=== PATIENT | male | born 1975 | race Caucasian/White ===

== ENCOUNTER → 2019-09-18 | Outpatient (CLI) | payer OTHER ==
--- NOTE | 2019-09-18 11:00 | ECHOF ---
Referral Reason:R01.1 murmur MEASUREMENTS -------- HEIGHT: 157.5 cm WEIGHT: 79.4 kg BP: IVSd: 1.1 cm (0.6 - 1.1) LVIDd: 4.5 cm (3.9 - 5.3) LVPWd: 1.4 cm (0.6 - 1.1) IVSs: 1.5 cm LVIDs: 3.0 cm LVPWs: 2.2 cm LAESV Index (A-L): 33.78 ml/m Ao Diam: 2.6 cm (2.0 - 3.7) AV Cusp: 1.5 cm (1.5 - 2.6) LA Diam: 3.4 cm (2.7 - 3.8) MV EXCURSION: 16.312 mm (> 18.000) MV EF SLOPE: 60 mm/s (70 - 150) EPSS: 0.9 cm MV E Brad: 0.70 m/s MV DecT: 105 ms MV A Brad: 0.49 m/s MV E/A Ratio: 1.44 AV maxP.31 mmHg AV meanP.02 mmHg AR PHT: 532 ms RAP: 5.00 mmHg RVSP: 35.15 mmHg FINDINGS -------- Sinus rhythm. This was a technically adequate study. The left ventricular size is normal. There is mild concentric left ventricular hypertrophy. Overa ll left ventricular systolic function is normal with, an EF between 55 - 60 %. The diastolic fillin g pattern is normal for the age of the patient 12.00. The right ventricle is normal in size. LA is midly dilated 29-33ml/m2. The right atrium was not well visualized. Interatrial and interventricular septum intact. There is [id number] aortic regurgitation. Moderate aortic stenosis with peak/mean pressure gr adient of 54.31mmHg / 38.02mmHg, the aortic valve area by continuity equation is {SEAMUS}. Peak/mean g radient across the Aortic Valve is 54.31mmHg / 38.02mmHg. Can not exclude possible calcifaction vs Bicuspid Valve. Advised CHICO Mild mitral regurgitation is present. Mild tricuspid regurgitation present. There is mild pulmonary hypertension. The right ventricular systolic pressure, as measured by Doppler, is 35.15mmHg. Trace/mild (physiologic) pulmonic regurgitation. The ascending aorta is dilated measuring up to {4.6 cm}. IVC Not well visulized. There is no pericardial effusion. CONCLUSIONS -------- 1. Sinus rhythm. 2. This was a technically adequate study. 3. The left ventricular size is normal. 4. There is mild concentric left ventricular hypertrophy. 5. Overall left ventricular systolic function is normal with, an EF between 55 - 60 %. 6. The diastolic filling pattern is normal for the age of the patient 12.00 7. The right ventricle is normal in size. 8. LA is midly dilated 29-33ml/m2. 9. The right atrium was not well visualized. 10. Interatrial and interventricular septum intact. 11. There is jlqj-lb-kfedpgqk aortic regurgitation. 12. Peak/mean gradient across the Aortic Valve is 54.31mmHg / 38.02mmHg. 13. Can not exclude possible calcifaction vs vegetation/tumor of aov. 14. Mild mitral regurgitation is present. 15. Mild tricuspid regurgitation present. 16. There is mild pulmonary hypertension. 17. The right ventricular systolic pressure, as measured by Doppler, is 35.15mmHg. 18. Trace/mild (physiologic) pulmonic regurgitation. 19. The ascending aorta is dilated measuring up to {4.6cm}. 20. IVC Not well visulized. 21. There is no pericardial effusion. PLATE SLITTER AND INSPECTOR: Ariadne Mckeon [facility]
== END | disposition home or self-care (01) ==
LOC: RADECHMAIN 08:10
PROVIDERS: ATTEND Family Medicine
DX: I08.3 Combined rheumatic disorders of mitral, aortic and tricuspid valves (principal); I27.20 Pulmonary hypertension, unspecified
CPT/HCPCS: 93306

== ENCOUNTER → 2020-09-01 | Outpatient (CLI) | payer OTHER ==
[2020-09-01 10:35] LABS: HCT 43.5 % (39.0-53.0); HGB 14.1 gm/dL (13.0-17.5); Hypochromasia Slight; MCH 30.3 pg (25.0-35.0); MCHC 32.5 g/dL (31.0-37.0); MCV 93.1 fL (80.0-100.0); Mean Platelet Volume 8.5; Platelet Count 126 k/uL (150-450); RBC 4.67 m/uL (4.30-5.90); RDW 14.5 % (11.5-15.5); WBC 8.5 k/uL (3.8-10.6)
[2020-09-01 11:00] LABS: African American GFR (CKD) >90 (>60 ml/min/1.73 sqM); Anion Gap 2 mmol/L; Blood Urea Nitrogen 20 mg/dL (9-20); Carbon Dioxide 31 mmol/L (22-30); Chloride 108 mmol/L (98-107); Non-African American GFR(CKD) >90 (>60 ml/min/1.73 sqM); Potassium 4.7 mmol/L (3.5-5.1); Sodium 141 mmol/L (137-145)
== END | disposition home or self-care (01) ==
LOC: LABWHC1 09:34
PROVIDERS: ATTEND Internal Medicine Interventional Cardiology
DX: Z01.818 Encounter for other preprocedural examination (principal); Q23.1 Congenital insufficiency of aortic valve
CPT/HCPCS: 36415; 80051; 82565; 84520; 85027

== ENCOUNTER → 2020-09-03 | Day surgery (SDC) | payer OTHER ==
[2020-08-28 15:59] VITALS: BMI 31.7
[~2020-09-03] MED LIST: ALPRAZolam 0.25 MG TAB PO PRN; ALPRAZolam 0.5 MG TAB PO PRN; ASPIRIN 325 MG TAB PO STA; ASPIRIN 81 MG ONE; BENZOCAINE SPRAY 1 CAN TOPICAL ONE; HEPARIN SODIUM,PORCINE 10,000 UNIT in SODIUM CHLORIDE 0.9% 1,000 ML IRRIGATION PRN; HEPARIN SODIUM,PORCINE 2,500 UNIT in SODIUM CHLORIDE 0.9% 250 ML IRRIGATION PRN; IOPAMIDOL-370 100ML BTL INJ ONE; LIDOCAINE 1% INJ 10MG/ML (20 ML MDV) ONE; MIDAZOLAM 2 MG/2 ML VIAL IV ONE; NITROGLYCERIN SL TABS 0.4 MG TAB SUBLINGUAL PRN; SODIUM CHLORIDE 0.9% 1,000 ML IV SCH; SODIUM CHLORIDE 0.9% 1,000 ML in EMPTY BAG 1 BAG IV ONE; fentaNYL (PF) 50 MCG/ML 2 ML AMP IV ONE; fentaNYL (PF) 50 MCG/ML 2 ML AMP ONE
[2020-09-03 08:08] VITALS: TEMP 97.7
[2020-09-03 08:42] VITALS: RESP 16
--- NOTE | 2020-09-03 08:52 | P.PCN ---
Date of Procedure: 09/03/20 Preoperative Diagnosis: Bicuspid aortic valve, aortic stenosis and regurgitation Postoperative Diagnosis: Moderate to severe aortic regurgitation and moderate to severe aortic stenosis. Very calcified aortic valve, possibly bicuspid Procedure(s) Performed: CHICO examination Description of Procedure: INDICATION: Assessment of the aortic valve disease CONSENT: . Verbal informed consent was obtained from the patient PROCEDURE: . Patient was brought to the lab in a fasting state. He was prepped and draped in the usual fashion. The throat was sprayed with Hurricaine. Patient was given 2 mg of Versed and 50 g of fentanyl for sedation. A lubricated Omni probe was introduced into the oropharynx and was advanced into the esophagus. Color, pulsed, continuous-wave Doppler studies were performed. Saline contrast bubble injection was performed. Patient tolerated the procedure well. No immediate complications FINDINGS: . The aortic valve is heavily calcified with an eccentric opening. It is not clear to be in the cuspid and bicuspid. The valve area by planimetry is about 1 cm. There is a eccentric moderate to severe aortic regurgitation. A peak gradient of 70 with a mean of 45 and the pain across the aortic valve which is consistent with severe aortic stenosis. This may be high because of concomitant aortic regurgitation. The mitral valve appears within normal. The tricuspid valve appears normal. The interatrial septum is intact. Left atrium appeared to be enlarged. The left ventricle size appeared to be mildly enlarged with mild generalized hypokinesia with an ejection fraction about 45%. The left atrial appendage is free of any clot. Saline contrast bubble injection did not reveal any urgency of PFO. No spontaneous shunt noted across the septum. The descending aorta appeared to be free of any significant plaque IMPRESSION: #1. Moderate to severe stenosis and moderate to severe aortic regurgitation. Heavily calcified aortic valve which could be bicuspid #2. Normal mitral and tricuspid valve function #3. No PFO or #4. No clot in the left atrial appendage. #5. Left ventricle is Mildly dilated with mild generalized hypokinesia with ejection fraction of 45%.6. The left atrium appears mildly enlarged PLAN: Patient is going to have a right and left heart catheterization. Most probably having some mitral valve replacement.
[2020-09-03 11:20] LABS: O2 Sat Blood Gas 61.1 %
[2020-09-03 11:20] LABS: O2 Sat Blood Gas 56.9 %
[2020-09-03 11:21] LABS: O2 Sat Blood Gas 58.9 %
[2020-09-03 11:21] LABS: O2 Sat Blood Gas 58.5 %
[2020-09-03 11:22] LABS: O2 Sat Blood Gas 92.7 %
--- NOTE | 2020-09-03 13:40 | CC ---
CARDIAC CATHETERIZATION REPORT DATE OF SERVICE: 09/03/2020. PROCEDURE: Right heart catheterization and coronary angiography. PERFORMED BY: Dr. Nallely Monterroso. Moderate conscious sedation time was 31 minutes. Patient was administered Versed. Oxygen saturation, hemodynamics and EKG were monitored closely. PROCEDURE NOTE: Under local anesthesia and strict aseptic precautions, a 6-Singaporean introducer was placed in the right femoral artery and an 8-Singaporean introducer in the right femoral vein. Using a balloon tipped catheter, I performed right heart catheterization, checked the pressures and obtained saturations. The catheter was then taken out. I had difficulty getting the wedge pressure because of tortuosity. Subsequently, using standard Teofilo catheters I performed coronary angiography, but did not cross the aortic valve. The sheath was taken out and Angio-Seal device used to secure hemostasis. The venous sheath was taken out and manual compression used. CARDIAC CATHETERIZATION FINDINGS: The right atrial pressure was 5 mmHg, right ventricular pressure was about 48/5, pulmonary arterial pressure was 48/20 with a mean of 32. A wedge pressure was not obtained. Pulmonary arterial saturation was about 60% and femoral arterial saturation was 93%. There was no oxygen step-up. The Annette cardiac output was 4.8 L. CORONARY ANGIOGRAPHY FINDINGS: RIGHT CORONARY ARTERY: This is a dominant vessel has no significant disease. Distally gives off a large PDA and supplies a sizable amount of myocardium. Minor irregularities in the super dominant RCA. No significant disease. LEFT MAIN CORONARY ARTERY: This is a short patent vessel free of significant disease that immediately bifurcates into LAD and circumflex. LEFT ANTERIOR DESCENDING CORONARY ARTERY: Good caliber vessel, gives off septal and diagonal branches runs all the way to the apex. No significant disease. LEFT POSTERIOR CIRCUMFLEX CORONARY ARTERY: Technically this is a nondominant vessel supplies a limited amount of myocardium, has no significant disease. The PLV branch comes off from the distal circumflex. The high first obtuse marginal is free of significant disease. LEFT ANTERIOR DESCENDING CORONARY ARTERY: Good caliber vessel, gives off septal and diagonal branches. Minor irregularities. No significant disease. IMPRESSION: 1. This patient has no obstructive coronary artery disease. 2. She has moderate pulmonary hypertension. 3. There is no oxygen step-up. 4. The Annette cardiac output was 4.87 L. 5. By transesophageal echo, the valve is probably unicuspid are bicuspid with moderate regurgitation and moderate stenosis. RECOMMENDATION: Aortic valve replacement probably with a tissue valve. Findings discussed with the patient, and Dr. Basilio Jiménez. Will make appointment as soon as possible. MMODL / IJN: [id number] /
[2020-09-03 15:06] VITALS: BP 88/56; PULSE 70
== END ==
LOC: CATHCVL 07:36
PROVIDERS: ATTEND Internal Medicine Interventional Cardiology
DX: I35.2 Nonrheumatic aortic (valve) stenosis with insufficiency (principal); I27.20 Pulmonary hypertension, unspecified; J45.20 Mild intermittent asthma, uncomplicated; E78.00 Pure hypercholesterolemia, unspecified; I71.2 Thoracic aortic aneurysm, without rupture; R09.89 Other specified symptoms and signs involving the circulatory and respiratory systems; Z79.899 Other long term (current) drug therapy; Z79.82 Long term (current) use of aspirin
CPT/HCPCS: 93312; 93320; 93325; 93456; 85018; 82810; C1769 ×4; C1760; C1894 ×2; J2250; J3010; Q9967

== ENCOUNTER → 2020-09-30 | Outpatient (CLI) | payer OTHER ==
[2020-09-30 10:28] LABS: HCT 39.2 % (39.0-53.0); HGB 12.9 gm/dL (13.0-17.5); MCH 29.8 pg (25.0-35.0); MCHC 32.8 g/dL (31.0-37.0); MCV 90.8 fL (80.0-100.0); Platelet Count 135 k/uL (150-450); RBC 4.32 m/uL (4.30-5.90); RDW 14.6 % (11.5-15.5)
--- NOTE | 2020-09-30 10:32 | P.PN ---
Progress Note - Text Progress Note Date: 09/30/20 5 meter walk completed without difficulty: #1 3.43 sec #2 3.67 sec #3 3.23 sec Patient tolerated well. STS risk score calculated and discussed with patient
[2020-09-30 10:43] LABS: ALT 17 U/L (4-49); AST 21 U/L (17-59); African American GFR (CKD) >90 (>60 ml/min/1.73 sqM); Albumin 4.3 g/dL (3.5-5.0); Alkaline Phosphatase 36 U/L (38-126); Anion Gap 8 mmol/L; Blood Urea Nitrogen 18 mg/dL (9-20); Calcium 9.3 mg/dL (8.4-10.2); Carbon Dioxide 28 mmol/L (22-30); Chloride 104 mmol/L (98-107); Cholesterol 110 mg/dL (<200); Glucose 104 mg/dL (74-99); HDL Cholesterol 36 mg/dL (40-60); LDL Cholesterol,Calculated 44 mg/dL (0-99); Magnesium 2.1 mg/dL (1.6-2.3); Non-African American GFR(CKD) >90 (>60 ml/min/1.73 sqM); Potassium 4.4 mmol/L (3.5-5.1); Sodium 140 mmol/L (137-145); Total Bilirubin 0.8 mg/dL (0.2-1.3); Total Protein 6.8 g/dL (6.3-8.2); Triglycerides 148 mg/dL (<150)
--- NOTE | 2020-09-30 11:12 | XR ---
EXAMINATION TYPE: XR chest 2V DATE OF EXAM: 09/30/2020 COMPARISON: 02/03/2009 INDICATION: Aortic stenosis TECHNIQUE: Single frontal view of the chest is obtained. FINDINGS: The heart size is normal. The pulmonary vasculature is slightly prominent. The lungs are clear. There is spondylosis within the mid thoracic spine IMPRESSION: 1. Slight prominence of pulmonary vascular markings. 2. Suspicious focal infiltrates are not evident.
--- NOTE | 2020-09-30 11:20 | US ---
EXAMINATION TYPE: US carotid duplex BILAT DATE OF EXAM: 09/30/2020 COMPARISON: 05/07/2009 CLINICAL HISTORY: I35.0 AORTIC STENOSIS,U07.1. PreOP. EXAM MEASUREMENTS: RIGHT: Peak Systolic Velocity (PSV) cm/sec ----- Right CCA: 56.4 ----- Right ICA: 76.4 ----- Right ECA: 62.4 ICA/CCA ratio: 1.4 RIGHT: End Diastole cm/sec ----- Right CCA: 18.0 ----- Right ICA: 25.0 ----- Right ECA: 11.0 LEFT: Peak Systolic Velocity (PSV) cm/sec ----- Left CCA: 62.5 ----- Left ICA: 92.2 ----- Left ECA: 80.1 ICA/CCA ratio: 1.5 LEFT: End Diastole cm/sec ----- Left CCA: 18.0 ----- Left ICA: 27.4 ----- Left ECA: 11.5 VERTEBRALS (direction of flow): Right Vertebral: Antegrade Left Vertebral: Antegrade Rhythm: Normal No wall thickening. No elevated velocities or significant stenosis. No plaque seen. No significant interval changes evident IMPRESSION: 1. No significant flow-limiting stenosis. Criteria for Assigning % of Stenosis / Diameter reduction (Estimation based on the indirect measurements of the internal carotid artery velocities (ICA PSV). 1. Normal (no stenosis)=ICA PSV < 125 cm/s: ratio < 2.0: ICA EDV<40 cm/s. 2. Less than 50% stenosis=ICA PSV < 125 cm/s: ratio < 2.0: ICA EDV<40 cm/s. 3. 50 to 69% stenosis=ICA PSV of 125 to 230 cm/s: ration 2.0 ? 4.0: ICA EDV 40-100 cm/s. 4. Greater than 70% stenosis to near occlusion= ICA PSV > 230 cm/s: ratio > 4.0: ICA EDV > 100 cm/s. 5. Near occlusion= ICA PSV velocities may be low or undetectable: variable ratio and ICA EDV. 6. Total occlusion=unable to detect flow.
[2020-09-30 11:33] LABS: Appearance,Urine Clear (Clear); Bilirubin,Urine Negative (Negative); Blood,Urine Negative (Negative); Color,Urine Yellow; Glucose,Urine (UA) Negative (Negative); Ketones,Urine Negative (Negative); Leukocyte Esterase,Urine Negative (Negative); Nitrite,Urine Negative (Negative); Protein,Urine Negative (Negative); Specific Gravity,Urine 1.022 (1.001-1.035); Urobilinogen,Urine <2.0 mg/dL (<2.0)
[2020-09-30 12:07] LABS: Partial Thromboplastin Time 24.3 sec (22.0-30.0); Prothrombin Time 10.5 sec (9.0-12.0)
[2020-09-30 17:07] LABS: Hepatitis A Antibody IgM Non-Reactive (Non-Reactive); Hepatitis B Core IgM Non-Reactive (Non-Reactive); Hepatitis B Surface Antigen Non-Reactive (Non-Reactive); Hepatitis C IgG Antibody Non-Reactive (Non-Reactive)
[2020-09-30 17:35] LABS: Hemoglobin A1C 5.4 % (4.0-6.0)
--- NOTE | 2020-10-01 14:12 | P.VSCSTY ---
Greater Saphenous Vein Mapping This is bilateral lower extremity greater saphenous vein mapping. Date of service: 09/30/2020 Vein quality and ultrasound appearance: We see no intraluminal thrombus or wall changes. Vein size groin right : 4.8 x 5.4 groin left: 5.1 x 5.2 High thigh right: 2.8 x 2.3 high thigh left: 3.1 x 3.5 Mid thigh right: 3.8 x 2.7 mid thigh left: 3.8 x 2.8 Above-knee right: 4.1 x 3.4 above-knee left: 3.6 x 3.1 Below knee right: 3.0 x 2.5 below-knee left: 3.2 x 2.1 Mid calf right: 2.6 x 2.7 mid calf left: 3.0 x 2.6 Ankle right: 4.6 x 2.9 ankle left: 2.9 x 2.5 Impression: Usable bilateral greater saphenous vein..
== END | disposition home or self-care (01) ==
LOC: LABPAT 07:59
PROVIDERS: ATTEND Thoracic Surgery (Cardiothoracic Vascular Surgery)
DX: I35.0 Nonrheumatic aortic (valve) stenosis (principal); U07.1 COVID-19
CPT/HCPCS: 80061; 80053; 80074; 84443; 83735; 85027; 85610; 85730; 81003; 87070; 87086; 83036; 71046; 93970; 93880; 93005; 36415; U0003; C9803; U0005

== ENCOUNTER 2020-10-06 05:31 | Inpatient (IN) | payer OTHER ==
[~2020-10-06 05:31] MED LIST changes: +ALBUMIN HUMAN 25% 50 ML IV ONE; +ALBUMIN HUMAN 5% 500 ML IVPB ONE; -ALPRAZolam 0.25 MG TAB PO PRN; -ALPRAZolam 0.5 MG TAB PO PRN; +ASPIRIN 325 MG TAB PO ONE; -ASPIRIN 325 MG TAB PO STA; -ASPIRIN 81 MG ONE; +ATORVASTATIN 10 MG TAB PO ONE; -BENZOCAINE SPRAY 1 CAN TOPICAL ONE; +CALCIUM CHLORIDE 100 MG/ML 10 ML SYRINGE IV ONE; +CARDIOPLEGIC SOLN (K+ 16 MEQ/L 1,000 ML with SODIUM BICARB (1 MEQ/ML) 20 ML, LIDOCAINE ... PERFUSION ONE; +CHLORHEXIDINE GLUCONATE 15 ML CUP MUCOUS MEM ONE; +CLEVIDIPINE BUTYRATE 25 MG in EMPTY BAG 1 BAG IV ONE; +HEPARIN SODIUM 1,000 UN/ML (10ML VL) IV ONE; -HEPARIN SODIUM,PORCINE 10,000 UNIT in SODIUM CHLORIDE 0.9% 1,000 ML IRRIGATION PRN; -HEPARIN SODIUM,PORCINE 2,500 UNIT in SODIUM CHLORIDE 0.9% 250 ML IRRIGATION PRN; +HEPARIN SODIUM,PORCINE 5,000 UNIT in SODIUM CHLORIDE 0.9% 500 ML 500 ML IV ONE; +INSULIN REGULAR 100 UNIT in SODIUM CHLORIDE 0.9% 100 ML IV ONE; -IOPAMIDOL-370 100ML BTL INJ ONE; +LACTATED RINGERS 1,000 ML IV ONE; -LIDOCAINE 1% INJ 10MG/ML (20 ML MDV) ONE; +MAGNESIUM SULFATE MG 500 MG/ML IV ONE; +MANNITOL 25% 12.5 GM/50 ML VIAL IV ONE; +METOPROLOL TARTRATE 12.5 MG TAB PO ONE; -MIDAZOLAM 2 MG/2 ML VIAL IV ONE; -NITROGLYCERIN SL TABS 0.4 MG TAB SUBLINGUAL PRN; +NITROGLYCERIN-D5W PMX 25 MG/250 ML BTL IV ONE; +NITROGLYCERIN-D5W PMX 50 MG in DEXTROSE/WATER 1 250ML.BAG IV ONE; +NOREPINEPHRINE 4 MG in SODIUM CHLORIDE 0.9% 250 ML IV ONE; +PAPAVERINE 360 MG in SODIUM CHLORIDE 0.9% 90 ML IV ONE; +PHENYLEPHRINE 10 MG/ML VIAL IV ONE; +PHENYLEPHRINE 40 MG in SODIUM CHLORIDE 0.9% 250 ML IV ONE; +PROTAMINE SULFATE 10 MG/ML 25 ML VIAL IV ONE; +PROTAMINE SULFATE 250 MG in EMPTY BAG 1 BAG IV ONE; +SODIUM BICARB 8.4% 50 ML SYR (1 MEQ/ML) IV ONE; +SODIUM CHLORIDE 0.9% 1,000 ML IV ONE; -SODIUM CHLORIDE 0.9% 1,000 ML IV SCH; -SODIUM CHLORIDE 0.9% 1,000 ML in EMPTY BAG 1 BAG IV ONE; +TRANEXAMIC ACID 2,000 MG in SODIUM CHLORIDE 0.9% 80 ML IV ONE; +ceFAZolin 1,000 MG in SODIUM CHLORIDE 0.9% IRRIGATIO 1,000 ML IRRIGATION ONE; -fentaNYL (PF) 50 MCG/ML 2 ML AMP IV ONE; -fentaNYL (PF) 50 MCG/ML 2 ML AMP ONE; +propofoL 1,000 MG/100 ML VIAL IV ONE
[2020-10-06] MEDS ORDERED: MUPIROCIN 2% OINT 22 GM TUBE NASAL ONE (06:00)
[2020-10-06] MEDS ORDERED: LIDOCAINE 1% (10MG/ML) FOR IV START INTRADERMA ONE (06:10)
[2020-10-06 06:15] LABS: Glucose,Whole Blood 97 mg/dL (75-99)
[2020-10-06] MEDS ORDERED: MAGNESIUM SULFATE 4 MEQ/ML 10ML VIAL ONE (07:41)
[2020-10-06] MEDS ORDERED: TRANEXAMIC ACID 1,000 MG/10 ML VIAL ONE (07:41)
[2020-10-06] MEDS ORDERED: ALBUMIN HUMAN 5% (25gm) 500 ML VIAL IVPB ONE (07:41)
[2020-10-06] MEDS ORDERED: MIDAZOLAM 2 MG/2 ML VIAL ONE (07:41)
[2020-10-06] MEDS ORDERED: ELECTROLYTE-R (PH 7.4) 1,000 ML IV.SOLN IV ONE (07:41)
[2020-10-06] MEDS ORDERED: ceFAZolin 1,000 MG VIAL ONE (07:41)
[2020-10-06] MEDS ORDERED: PROTAMINE SULFATE 10 MG/ML 25 ML VIAL IV ONE (07:41)
[2020-10-06] MEDS ORDERED: PHENYLEPHRINE-0.9% NACL SYG 1,000 MCG/10 ML SYRINGE ONE (07:41)
[2020-10-06] MEDS ORDERED: SODIUM CHLORIDE 0.9% 250 ML BAG ONE (07:41)
[2020-10-06] MEDS ORDERED: VECURONIUM 10 MG VIAL IV ONE (07:41)
[2020-10-06] MEDS ORDERED: fentaNYL (PF) 50 MCG/ML 50 ML VIAL ONE (07:41)
[2020-10-06] MEDS ORDERED: fentaNYL (PF) 50 MCG/ML 2 ML AMP ONE (07:41)
[2020-10-06] MEDS ORDERED: SODIUM CHLORIDE 0.9% IRRIG 1,000 ML BTL IRRIGATION ONE (07:41)
[2020-10-06] MEDS ORDERED: PROPOFOL 10 MG/ML 20 ML VIAL IV ONE (07:41)
[2020-10-06] MEDS ORDERED: SODIUM CHLORIDE 0.9% 100 ML BAG ONE (07:41)
[2020-10-06 08:33] LABS: ABG Base Excess 0.9 mmol/L; ABG Glucose Whole Blood 93 mg/dL (75-99); ABG HCO3 25 mmol/L (21-25); ABG Hematocrit 34 % (34.0-46.0); ABG Ionized Calcium 4.5 mg/dL (4.5-5.3); ABG Lactic Acid Whole Blood 0.9 mmol/L (0.5-1.6); ABG PCO2 38 mmHg (35-45); ABG PH 7.43 (7.35-7.45); ABG Sodium Whole Blood 142 mmol/L (135-146); ABG TCO2 26 mmol/L (19-24)
[2020-10-06] MEDS ORDERED: SODIUM CHLORIDE 0.9% 500 ML 500 ML with HEPARIN SODIUM,PORCINE 5,000 UNIT IV ONE ×2 (09:04)
[2020-10-06] MEDS ORDERED: ceFAZolin 1,000 MG in SODIUM CHLORIDE 0.9% 1,000 ML IRRIGATION ONE (09:05)
[2020-10-06 09:06] LABS: ABG Base Excess 1.5 mmol/L; ABG Glucose Whole Blood 100 mg/dL (75-99); ABG HCO3 26 mmol/L (21-25); ABG Hematocrit 34 % (34.0-46.0); ABG Ionized Calcium 4.5 mg/dL (4.5-5.3); ABG Lactic Acid Whole Blood 0.6 mmol/L (0.5-1.6); ABG Oxygen Saturation 99.9 % (94-97); ABG PCO2 39 mmHg (35-45); ABG PH 7.43 (7.35-7.45); ABG PO2 182 mmHg (83-108); ABG Potassium Whole Blood 4.2 mmol/L (3.4-4.5); ABG Sodium Whole Blood 141 mmol/L (135-146); ABG TCO2 27 mmol/L (19-24)
--- NOTE | 2020-10-06 09:29 | P.ANPRN ---
Procedure Note - Anesthesia - Invasive Line Right Central Line Time Out Performed: Yes ([id number]) Date of Procedure: 10/06/20 Time of Procedure: 07:17 Location of Patient: Phase I Preparation: Sterile Prep, Sterile Dressing Arterial Line Location: Radial Ultrasound Used: Yes Purpose - Visualization and Identification of Vasculature: Yes Needle Guage: 18g angio Image Stored and Saved: Yes Narrative: Central line placement per sterile protocol utilized. +local +US +angio +CVP +Jwire +uneventful dilation and introduction Right IJ Cordis. Nonpulsitile. Lumen bled and flushed. Secureed with suture and tegaderm.
[2020-10-06 09:49] LABS: ABG Base Excess -1.3 mmol/L; ABG Glucose Whole Blood 89 mg/dL (75-99); ABG HCO3 24 mmol/L (21-25); ABG Hematocrit 26 % (34.0-46.0); ABG Ionized Calcium 4.3 mg/dL (4.5-5.3); ABG Lactic Acid Whole Blood 0.7 mmol/L (0.5-1.6); ABG PCO2 43 mmHg (35-45); ABG PH 7.36 (7.35-7.45); ABG PO2 305 mmHg (83-108); ABG Potassium Whole Blood 4.7 mmol/L (3.4-4.5); ABG Sodium Whole Blood 137 mmol/L (135-146); ABG TCO2 25 mmol/L (19-24)
[2020-10-06 10:21] LABS: ABG Base Excess -0.9 mmol/L; ABG Glucose Whole Blood 109 mg/dL (75-99); ABG HCO3 24 mmol/L (21-25); ABG Hematocrit 27 % (34.0-46.0); ABG Ionized Calcium 4.3 mg/dL (4.5-5.3); ABG Lactic Acid Whole Blood 0.7 mmol/L (0.5-1.6); ABG Oxygen Saturation 99.8 % (94-97); ABG PCO2 40 mmHg (35-45); ABG PH 7.39 (7.35-7.45); ABG PO2 187 mmHg (83-108); ABG Potassium Whole Blood 4.9 mmol/L (3.4-4.5); ABG Sodium Whole Blood 138 mmol/L (135-146); ABG TCO2 25 mmol/L (19-24)
[2020-10-06 10:49] LABS: ABG Base Excess -0.4 mmol/L; ABG Glucose Whole Blood 112 mg/dL (75-99); ABG HCO3 24 mmol/L (21-25); ABG Hematocrit 27 % (34.0-46.0); ABG Ionized Calcium 4.3 mg/dL (4.5-5.3); ABG Lactic Acid Whole Blood 0.8 mmol/L (0.5-1.6); ABG PCO2 37 mmHg (35-45); ABG PH 7.42 (7.35-7.45); ABG PO2 342 mmHg (83-108); ABG Potassium Whole Blood 4.9 mmol/L (3.4-4.5); ABG Sodium Whole Blood 138 mmol/L (135-146); ABG TCO2 25 mmol/L (19-24)
[2020-10-06] MEDS ORDERED: CALCIUM GLUCONATE 2 GM in SODIUM CHLORIDE 0.9% 100 ML IVPB PRN (11:14)
[2020-10-06] MEDS ORDERED: hydrALAZINE HCL 20 MG/ML 1 ML VIAL IVP PRN (11:14)
[2020-10-06] MEDS ORDERED: IPRATROPIUM-ALBUTEROL 3 ML NEB INHALATION PRN (11:14)
[2020-10-06] MEDS ORDERED: METOCLOPRAMIDE 5 MG/ML 2 ML VIAL IVP PRN (11:14)
[2020-10-06] MEDS ORDERED: CLEVIDIPINE BUTYRATE 25 MG in EMPTY BAG 1 BAG IV SCH (11:14)
[2020-10-06] MEDS ORDERED: Phosphorus Replacement Protoco 1 EACH MISC MISCELLANE PRN (11:14)
[2020-10-06] MEDS ORDERED: Potassium Replacement Protocol 1 EACH MISC MISCELLANE PRN (11:14)
[2020-10-06] MEDS ORDERED: DEXMEDETOMIDINE/0.9% NACL(PMX) 400 MCG in EMPTY BAG 1 BAG IV SCH (11:14)
[2020-10-06] MEDS ORDERED: AMIODARONE 360 MG in DEXTROSE 5% IN WATER 200 ML IV PRN ×2 (11:14)
[2020-10-06] MEDS ORDERED: DEXTROSE 5% IN WATER 100 ML with AMIODARONE 150 MG IV PRN (11:14)
[2020-10-06] MEDS ORDERED: INSULIN REGULAR 100 UNIT in SODIUM CHLORIDE 0.9% 100 ML IV SCH (11:14)
[2020-10-06] MEDS ORDERED: AMIODARONE 450 MG in DEXTROSE 5% IN WATER 250 ML IV PRN ×2 (11:14)
[2020-10-06] MEDS ORDERED: ONDANSETRON 4 MG/2 ML VIAL IVP PRN (11:14)
[2020-10-06] MEDS ORDERED: BENZOCAINE/MENTHOL LOZENG 1 EACH LOZENGE MUCOUS MEM PRN (11:14)
[2020-10-06] MEDS ORDERED: Magnesium Replacement Protocol 1 EACH MISC MISCELLANE PRN (11:14)
[2020-10-06 12:01] LABS: ABG PO2 >420 mmHg (83-108)
--- NOTE | 2020-10-06 12:43 | P.OP ---
Date of Procedure: 10/06/20 Preoperative Diagnosis: Aortic stenosis, congenital unicuspid valve Postoperative Diagnosis: Same Procedure(s) Performed: Aortic valve replacement with 23 mm On-X mechanical valve, epi-aortic ultrasonography, ligation of left atrial appendage with 35 mm AtriCure clip Implants: 23 mm On-X mechanical aortic valve, 35 mm AtriCure clip Anesthesia: DERRICK Surgeon: Basilio Jiménez Estimated Blood Loss (ml): 200 IV fluids (ml): 2,000 Urine output (ml): 500 Pathology: other (Aortic valve) Condition: stable Disposition: ICU Indications for Procedure: 45-year-old male who presents with shortness of breath. Found to have severe aortic valvular stenosis with morphologically apparent unicuspid valve. Severe aortic stenosis by echocardiography. Operative Findings: Unicuspid valve with raphaes between the anatomical left and right and right and non-coronary cusps. Epi-aortic ultrasonography demonstrated no significant atheroma sclerosis of the ascending aorta. The aortic tissue itself was very soft and thin. There was no evidence of aneurysmal dilatation however. Description of Procedure: The patient was brought to the operating room, placed supine on the operating table, anesthetized and intubated. CHICO probe was placed. CHICO findings were consistent with the preoperative CHICO findings. The anterior torso and lower extremities were sterilely prepped and draped following general anesthetic induction and intubation. Midline sternotomy was performed after timeout. The left pleural space was opened widely and the right pleural space was opened minimally. Pericardium was opened in the midline and the heart exposed with pericardial sutures. Patient was systemically heparinized. Epi-aortic ultrasonography was performed with the findings as noted above. Patient was cannulated for cardiotomy bypass with a 7 mm soft flow cannula in the distal ascending aorta and a two-stage venous cannula through the right atrial appendage into the inferior vena cava. Antegrade and retrograde cardioplegia lines were placed in standard fashion. The patient was placed on cardioplegia bypass and stabilized. Pursestring was placed in the her pulmonary vein. Aorta was crossclamped and the heart arrested with cold crystalloid antegrade cardioplegia followed by retrograde cardioplegia. Left atrial vent was placed through the right. Pulmonary vein. A 35 mm AtriCure clip was placed at the base of the left atrial appendage. The aorta was opened transversely and the aortic valve exposed. Aortic valve was excised. The annulus was decalcified. Circumferential pledgeted valve sutures of 2-0 Tycron were placed with the pledgets on the ventricular side to allow a supra-annular implantation. The annulus was sized. A 23 sizer easily fit through the aortic annulus. A 23 mm On-X valve was opened and brought up on the field. Sutures were placed circumferentially around the sewing ring of the valve. The valve was seated and the sutures tied and the valve was noted to seat well. Was a small tear on the ascending aorta posteriorly which was repaired with a 6-0 Prolene. Copious irrigation and been performed all the way through the procedure and was again performed prior to closing the aorta. The aorta was closed with a running 2 layer 4-0 Prolene suture. On completion of the closure the patient was placed in Trendelenburg and the cross-clamp was removed. Good hemostasis was noted. The aortic suture line was reinforced with some CoSeal. The left atrial vent was removed and the pursestring suture tied. Patient returned to a spontaneous sinus rhythm. Atrial and ventricular pacing wires were placed. The retrograde coronary sinus catheter was removed. The heart was de-aired under CHICO guidance using a 18-gauge Angiocath in the apex of the left ventricle. Once good de- airing had been completed this was oversewn with a 6-0 Prolene suture. The aortic vent was then removed and the pursestring tied and the site reinforced with a 40 pledgeted Prolene suture. Patient was given from cardiotomy bypass without the use of inotropic support. He easily and remained hemodynamically stable. He was in a sinus rhythm in the 60s. Cardiac indices were good. Heparin was reversed with protamine. Patient was decannulated in standard fashion and the pump returned to the patient. Aortic cannulation site was reinforced with a 40 pledgeted Prolene suture. After assuring good hemostasis the chest was irrigated with warm antibiotic solution. The left pleural space was drained with a 32-Montenegrin chest tube. Mediastinum was drained with 36-Mont[place]grin chest tube. Sternum was closed with 8 sternal wires. The fascia was closed with 0 Ethibond subcutaneous and subcuticular layers with layers of Vicryl suture. Skin glue and dry sterile dressings were applied. The patient was transferred to the ICU in stable condition on no inotropic support having received no blood transfusions.
[2020-10-06 12:59] LABS: Glucose,Whole Blood 99 mg/dL (75-99)
[2020-10-06 13:06] LABS: ABG Base Excess -2.6 mmol/L; ABG HCO3 23 mmol/L (21-25); ABG PCO2 43 mmHg (35-45); ABG PH 7.34 (7.35-7.45); ABG PO2 67 mmHg (83-108); ABG TCO2 25 mmol/L (19-24); Allen Test Performed? Yes
[2020-10-06] MEDS ORDERED: NOREPINEPHRIN 4 MG-0.9% NS PMX 0 MG/0 ML ML IV ONE (13:09)
--- NOTE | 2020-10-06 13:11 | XR ---
EXAMINATION TYPE: XR chest 1V portable DATE OF EXAM: 10/06/2020 COMPARISON: 09/30/2020 INDICATION: Postop cardiac surgery TECHNIQUE: Single frontal view of the chest is obtained. FINDINGS: The heart size is normal. The pulmonary vasculature is normal. Mild infiltrate is at the left base. Mediastinal tube is in the midline. Nasogastric tube transverses the thorax with tip in left upper qu adrant of the abdomen. Endotracheal tube tip is above the monalisa. [place]-Penny catheter tip is in the ri ght main pulmonary artery region. There is an additional catheter at the left lung base may be a ches t tube. Epicardial leads are evident. IMPRESSION: 1. Mild infiltrate left base. Multiple lines and catheters discussed above
[2020-10-06 13:15] LABS: Basophils % (A) 0 %; Eosinophils # (A) 0.1 k/uL (0-0.7); Eosinophils % (A) 1 %; HCT 28.8 % (39.0-53.0); Lymphocytes # (A) 0.6 k/uL (1.0-4.8); Lymphocytes % (A) 7 %; MCH 30.6 pg (25.0-35.0); MCV 92.7 fL (80.0-100.0); Mean Platelet Volume 9.8; Monocytes # (A) 0.5 k/uL (0-1.0); Monocytes % (A) 6 %; Neutrophils # (A) 7.7 k/uL (1.3-7.7); Neutrophils % (A) 86 %; RDW 14.6 % (11.5-15.5); WBC 8.9 k/uL (3.8-10.6)
[2020-10-06] MEDS: NOREPINEPHRINE 4 MG in SODIUM CHLORIDE 0.9% 250 ML IV SCH (13:15)
[2020-10-06 13:37] LABS: INR 1.2 (<1.2); Partial Thromboplastin Time 30.5 sec (22.0-30.0)
[2020-10-06] MEDS: LACTATED RINGERS 1,000 ML IV SCH (13:39)
[2020-10-06 13:43] LABS: HGB 9.5 gm/dL (13.0-17.5)
[2020-10-06 13:43] LABS: Glucose,Whole Blood 102 mg/dL (75-99)
[2020-10-06 13:47] LABS: ABG Base Excess -3.7 mmol/L; ABG HCO3 23 mmol/L (21-25); ABG PCO2 47 mmHg (35-45); ABG PH 7.29 (7.35-7.45); ABG PO2 238 mmHg (83-108); ABG TCO2 24 mmol/L (19-24); Allen Test Performed? Yes
[2020-10-06] MEDS: IPRATROPIUM-ALBUTEROL 3 ML NEB INHALATION SCH ×5 (13:56→20:27)
[2020-10-06 14:02] LABS: Platelet Count 96 k/uL (150-450)
[2020-10-06 14:32] LABS: ALT 10 U/L (4-49); AST 27 U/L (17-59); African American GFR (CKD) >90 (>60 ml/min/1.73 sqM); Albumin 3.1 g/dL (3.5-5.0); Alkaline Phosphatase 26 U/L (38-126); Anion Gap 3 mmol/L; Blood Urea Nitrogen 13 mg/dL (9-20); Calcium 8.2 mg/dL (8.4-10.2); Carbon Dioxide 23 mmol/L (22-30); Chloride 111 mmol/L (98-107); Glucose 94 mg/dL (74-99); Non-African American GFR(CKD) >90 (>60 ml/min/1.73 sqM); Potassium 4.5 mmol/L (3.5-5.1); Sodium 137 mmol/L (137-145); Total Bilirubin 0.7 mg/dL (0.2-1.3); Total Protein 4.8 g/dL (6.3-8.2)
[2020-10-06] MEDS: ALBUMIN HUMAN 5% 250 ML in EMPTY BAG 1 BAG IVPB PRN ×3 (14:41→16:20)
[2020-10-06] MEDS: ACETAMINOPHEN IV (For NPO) 1,000 MG in EMPTY BAG 1 BAG IVPB SCH ×2 (15:00→19:45)
[2020-10-06 15:04] LABS: Glucose,Whole Blood 112 mg/dL (75-99)
[2020-10-06 15:29] LABS: Glucose,Whole Blood 116 mg/dL (75-99)
--- NOTE | 2020-10-06 15:29 | P.CNPUL ---
History of Present Illness Consult date: 10/06/20 Requesting physician: Basilio Jiménez Reason for consult: other Chief complaint: Fatigue, exertional dyspnea History of present illness: 45-year-old white male patient with known history of heart murmur since youth was diagnosed with severe bicuspid aortic valvular disease and subsequently underwent transesophageal echocardiogram and cardiac catheterization. Transesophageal echocardiogram showed severe aortic valvular stenosis, and unicuspid valve. His left ventricular systolic function showed an EF of 35-40%. Coronary cath was negative for any occlusive coronary artery disease. Medical history is positive for mild intermittent bronchial asthma, and a history of a mini stroke 20 years ago. Family history is positive for hypothyroidism and chronic kidney disease in his father and breast cancer in his mother. Today on 10/06/2020 patient presented for aortic valve replacement with a mechanical valve, epiaortic ultrasonography, and ligation of left atrial appendage with 35 mm AtriCure clip. Patient is seen in the postoperative period in the intensive care unit. Patient is sedated on mechanical ventilator, current vent settings are assist-control with a rate of 12, tidal volumes 450, FiO2 70% and PEEP of 8. His postoperative blood gases showed pO2 of 67, pCO2 43, pH of 7.34, and this was done on assist control of 12, 450, 100% and PEEP of 5 and subsequently his PEEP was increased up to 8 and FiO2 was dropped down to 70%. Follow-up blood gases showed pO2 of 238, pCO2 47, pH of 7.29, and the rate was increased to 16. Hemodynamically patient is stable, minimal output in the mediastinal and left pleural chest tube, 100 mL of single and is output in the Pleur-evac. Patient is on lactated Ringer's at a rate of 50 ML per hour, and difficulty reveal an is at 20 mics per minute, and levothyroid is at 1 mics per minute. No other drips. Blood pressure is 82/50, sinus mechanism, patient has epicardial wires connected to external pacemaker box with VVI backup rate of 50, CVP is 13, PA pressures 44/20, cardiac output is 4.2, cardiac index is 2.3. Postoperative blo od work has been reviewed showing hemoglobin of 9.5, platelet count is 96, ionized 1.2, electrolytes and renal profile were unremarkable. Chest x-ray shows a mild infiltrate in the left base, ETT in the appropriate position, chest tubes have been noted. Review of Systems All systems: negative Constitutional: Reports fatigue, Denies chills, Denies fever Eyes: denies blurred vision, denies pain Ears, nose, mouth and throat: Denies headache, Denies sore throat Cardiovascular: Reports decreased exercise tolerance, Denies chest pain, Denies shortness of breath Respiratory: Reports dyspnea, Denies cough Gastrointestinal: Denies abdominal pain, Denies diarrhea, Denies nausea, Denies vomiting Musculoskeletal: Denies myalgias Integumentary: Denies pruritus, Denies rash Neurological: Denies numbness, Denies weakness Psychiatric: Denies anxiety, Denies depression Endocrine: Denies fatigue, Denies weight change Past Medical History Past Medical History: Asthma, CVA/TIA Additional Past Medical History / Comment(s): TIA 6-7 yrs. ago-no residual effects, heart murmur, admission in Jul. for "fluid around heart" & difficulty breathing History of Any Multi-Drug Resistant Organisms: None Reported Past Surgical History: Heart Catheterization Additional Past Surgical History / Comment(s): recent [facility] Past Anesthesia/Blood Transfusion Reactions: No Reported Reaction Additional Past Anesthesia/Blood Transfusion Reaction / Comment(s): has never had general anesthesia or blood transfusion Smoking Status: Never smoker Medications and Allergies Home Medications Medication Instructions Recorded Confirmed Type Ascorbic Acid [Vitamin C] 1,000 mg PO DAILY 08/28/20 10/06/20 History Aspirin 81 mg PO DAILY 08/28/20 10/06/20 History Budesonide/Formoterol Fumarate 2 puff INHALATION BID 08/28/20 10/06/20 History [Symbicort 160-4.5 Mcg Inhaler] Cholecalciferol [Vitamin D3 (25 1,000 unit PO BID 08/28/20 10/06/20 History Mcg = 1000 Iu)] Metoprolol Tartrate [Lopressor] 25 mg PO QAM 08/28/20 10/06/20 History Montelukast Sodium [Singulair] 10 mg PO HS 08/28/20 10/06/20 History [place]-3 Fatty Acids/Fish Oil [Fish 1 each PO DAILY 08/28/20 10/06/20 History Oil 1,000 mg Softgel] Rosuvastatin Calcium [Crestor] 10 mg PO DAILY 08/28/20 10/06/20 History Zinc 50 mg PO DAILY 08/28/20 10/06/20 History Albuterol Inhaler [Ventolin Hfa 2 puff INHALATION RT-QID PRN 10/01/20 10/06/20 History Inhaler] Metoprolol Tartrate [Lopressor] 12.5 mg PO HS 10/01/20 10/06/20 History Allergies Allergy/AdvReac Type Severity Reaction Status Date / Time No Known Allergies Allergy Verified 10/06/20 05:53 Physical Exam Vitals: Vital Signs Temp Pulse Pulse Resp BP BP Pulse Ox 10/06/20 14:30 70 17 97 10/06/20 14:15 70 16 100 10/06/20 14:09 69 10/06/20 14:00 65 12 100 10/06/20 13:56 67 10/06/20 13:45 64 12 100 10/06/20 13:30 65 12 100 10/06/20 13:20 65 12 100 10/06/20 13:10 63 12 95 10/06/20 13:00 65 12 100 10/06/20 12:50 36.4 F L 64 12 93 L 10/06/20 06:30 97.7 F 77 18 113/77 116/73 96 Intake and Output 10/06/20 10/06/20 10/06/20 06:59 14:59 22:59 Intake Total 100 544.395 0.466 Output Total 1560 Balance 100 -1015.605 0.466 Intake: IV 100 510 Albumin Human 5% 250 ml 250 In Empty Bag 1 bag @ 250 mls/hr IVPB Q1HR PRN Rx#: [id number] CO/CI 80 Lactated Ringers 1,000 ml 150 @ 50 mls/hr IV .Q20H [facility] Rx#:[id number] Pressure bags 27 Intake, IV Titration 34.395 0.466 Amount Norepinephrine 4 mg In 24.539 Sodium Chloride 0.9% 250 ml @ 0.05 MCG/KG/MIN 14. 783 mls/hr IV .[id number] [facility] Rx#:[id number] propofoL 500 mg In Empty 9.856 0.466 Bag 1 bag @ Titrate IV . Q0M [facility] Rx#:[id number] Output: Chest Tube Drainage 100 Left Pleural/Mediastinal 100 Urine 710 Estimated Blood Loss 750 Other: Voiding Method Indwelling Catheter Weight 77.6 kg ABP, PAP, CO, CI - Last 8 Hours Arterial Blood Pressure 93/57 Arterial Blood Pressure 92/53 Arterial Blood Pressure 107/65 Arterial Blood Pressure 90/58 Arterial Blood Pressure 92/56 Arterial Blood Pressure 98/62 Arterial Blood Pressure 72/40 Arterial Blood Pressure 69/14 Arterial Blood Pressure 112/58 Pulmonary Artery Pressure 47/23 Pulmonary Artery Pressure 45/21 Pulmonary Artery Pressure 48/24 Pulmonary Artery Pressure 47/23 Pulmonary Artery Pressure 48/23 Pulmonary Artery Pressure 39/20 Pulmonary Artery Pressure 29/8 Pulmonary Artery Pressure 56/26 Cardiac Output 5.2 Cardiac Output 4.2 Cardiac Output 5.1 Cardiac Index 2.9 Cardiac Index 2.3 Cardiac Index 2.8 GENERAL EXAM: 45 year old white male, sedated, comfortable in no apparent distress. HEAD: Normocephalic/atraumatic. EYES: Normal reaction of pupils, equal size. Conjunctiva pink, sclera white. NOSE: Clear with pink turbinates. THROAT: No erythema or exudates. NECK: No masses, no JVD, no thyroid enlargement, no adenopathy. CHEST: No chest wall deformity. Symmetrical expansion. Midsternal incision is clean dry and intact, 1 mediastinal and left pleural chest tubes of bright connected together to the same Pleur-evac, no air leak, with 100 mL of sanguinous output in the Pleur-evac LUNGS: Equal air entry with no crackles, wheeze, rhonchi or dullness. CVS: Regular rate and rhythm, normal S1 and S2, no gallops, no murmurs, no rubs ABDOMEN: Soft, nontender. No hepatosplenomegaly, normal bowel sounds, no guarding or rigidity. EXTREMITIES: No clubbing, no edema, no cyanosis, 2+ pulses and upper and lower extremities. MUSCULOSKELETAL: Muscle strength and tone normal. SPINE: No scoliosis or deformity SKIN: No rashes CENTRAL NERVOUS SYSTEM: Sedated No focal deficits, tone is normal in all 4 extremities. Results - Laboratory Findings CBC and BMP: 10/06/20 12:55 10/06/20 12:55 ABG ABG pH 7.29 (7.35-7.45) L 10/06/20 13:45 ABG pCO2 47 mmHg (35-45) H 10/06/20 13:45 ABG pO2 238 mmHg (83-108) H 10/06/20 13:45 ABG O2 Saturation 100.0 % (94-97) H 10/06/20 13:45 PT/INR, D-dimer PT 12.0 sec (9.0-12.0) 10/06/20 12:55 INR 1.2 (<1.2) H 10/06/20 12:55 Abnormal lab findings: Abnormal Labs 09/30/20 10/06/20 10/06/20 09:00 08:35 09:08 RBC Hgb Hct Plt Count Lymphocytes # INR APTT ABG pH ABG pCO2 ABG pO2 >420 H 182 H ABG HCO3 26 H ABG Total CO2 26 H 27 H ABG O2 Saturation 100.0 H 99.9 H ABG Hematocrit ABG Potassium ABG Ionized Calcium ABG Glucose 100 H Hemoglobin 11.1 L 11.1 L Chloride POC Glucose (mg/dL) Calcium Magnesium Alkaline Phosphatase Total Protein Albumin Arterial Blood Potassium Arterial Blood Glucose 100 H Crossmatch See Detail 10/06/20 10/06/20 10/06/20 09:50 10:22 10:50 RBC Hgb Hct Plt Count Lymphocytes # INR APTT ABG pH ABG pCO2 ABG pO2 305 H 187 H 342 H ABG HCO3 ABG Total CO2 25 H 25 H 25 H ABG O2 Saturation 100.0 H 99.8 H 100.0 H ABG Hematocrit 26 L 27 L 27 L ABG Potassium 4.7 H 4.9 H 4.9 H ABG Ionized Calcium 4.3 L 4.3 L 4.3 L ABG Glucose 109 H 112 H Hemoglobin 8.6 L 8.8 L 8.6 L Chloride POC Glucose (mg/dL) Calcium Magnesium Alkaline Phosphatase Total Protein Albumin Arterial Blood Potassium 4.7 H 4.9 H 4.9 H Arterial Blood Glucose 109 H 112 H Crossmatch 10/06/20 10/06/20 10/06/20 12:55 12:55 12:55 RBC 3.10 L Hgb 9.5 L D Hct 28.8 L Plt Count 96 L Lymphocytes # 0.6 L INR 1.2 H APTT 30.5 H ABG pH ABG pCO2 ABG pO2 ABG HCO3 ABG Total CO2 ABG O2 Saturation ABG Hematocrit ABG Potassium ABG Ionized Calcium ABG Glucose Hemoglobin Chloride 111 H POC Glucose (mg/dL) Calcium 8.2 L Magnesium 4.0 H Alkaline Phosphatase 26 L Total Protein 4.8 L Albumin 3.1 L Arterial Blood Potassium Arterial Blood Glucose Crossmatch 10/06/20 10/06/20 10/06/20 13:01 13:23 13:45 RBC Hgb Hct Plt Count Lymphocytes # INR APTT ABG pH 7.34 L 7.29 L ABG pCO2 47 H ABG pO2 67 L 238 H ABG HCO3 ABG Total CO2 25 H ABG O2 Saturation 93.0 L 100.0 H ABG Hematocrit ABG Potassium ABG Ionized Calcium ABG Glucose Hemoglobin Chloride POC Glucose (mg/dL) 102 H Calcium Magnesium Alkaline Phosphatase Total Protein Albumin Arterial Blood Potassium Arterial Blood Glucose Crossmatch 10/06/20 14:28 RBC Hgb Hct Plt Count Lymphocytes # INR APTT ABG pH ABG pCO2 ABG pO2 ABG HCO3 ABG Total CO2 ABG O2 Saturation ABG Hematocrit ABG Potassium ABG Ionized Calcium ABG Glucose Hemoglobin Chloride POC Glucose (mg/dL) 112 H Calcium Magnesium Alkaline Phosphatase Total Protein Albumin Arterial Blood Potassium Arterial Blood Glucose Crossmatch - Diagnostic Findings Chest x-ray: report reviewed, image reviewed Assessment and Plan Plan: Assessment: #1. Aortic valve stenosis, congenital unicuspid valve, status post aortic valve replacement with a 23 mm mechanical valve, at the aortic ultrasonography, ligation of the left atrial appendage, postoperative day 0 #2. Routine post-operative ventilator management #3. History of mild intermittent bronchial asthma #4. History of a remote stroke #5. Nonsmoker, no history of EtOH use Plan: Blood gases have been reviewed, chest x-ray has been reviewed, labs reviewed, and vent adjustments have been made, continue weaning FiO2, once the patient awakes proceed with spontaneous breathing trial and possible extubation, continue nebulized bronchodilators every 4 hours while on the ventilator and 4 times a day after extubation. Incentive spirometry to the bedside. Maintain pain control, continue close hemodynamic monitoring, follow-up labs and chest x- rays. We'll continue to closely follow with CT surgery in the intensive care unit. GI and DVT prophylaxis per CT surgery I performed a history & physical examination of the patient and discussed their management with my nurse practitioner, Jacqueline Kruse. I reviewed the nurse practitioner's note and agree with the documented findings and plan of care. Lung sounds are positive for clear breath sounds. The findings and the impression was discussed with the patient. I attest to the documentation by the nurse practitioner. Time with Patient: Greater than 30
[2020-10-06 15:36] LABS: Basophils % (A) 0 %; Eosinophils # (A) 0.1 k/uL (0-0.7); Eosinophils % (A) 1 %; HCT 27.2 % (39.0-53.0); HGB 9.3 gm/dL (13.0-17.5); Lymphocytes # (A) 0.6 k/uL (1.0-4.8); Lymphocytes % (A) 7 %; MCH 31.4 pg (25.0-35.0); MCV 92.2 fL (80.0-100.0); Mean Platelet Volume 9.9; Monocytes # (A) 0.4 k/uL (0-1.0); Monocytes % (A) 5 %; Neutrophils # (A) 6.6 k/uL (1.3-7.7); Neutrophils % (A) 87 %; RBC 2.95 m/uL (4.30-5.90); RDW 14.8 % (11.5-15.5); WBC 7.6 k/uL (3.8-10.6)
[2020-10-06 15:38] LABS: Platelet Count 96 k/uL (150-450)
[2020-10-06 16:23] LABS: Glucose,Whole Blood 121 mg/dL (75-99)
--- NOTE | 2020-10-06 17:01 | CONS ---
CONSULTATION Mr. Mejia is a 45-year-old male who has been followed by Dr. Nallely Monterroso and was admitted electively to undergo aortic valve replacement. The patient has a known history of aortic stenosis and recently had progression of dyspnea. He underwent evaluation by Dr. Nallely Monterroso and was found to have unicuspid aortic valve with severe aortic stenosis. He underwent surgical replacement of his aortic valve by Dr. Jiménez and received a size 23 On-X mechanical valve with ligation of the left atrial appendage. He is intubated, somewhat somnolent, but opening his eyes. He is in sinus mechanism on a minimal dose of norepinephrine. Hemodynamically otherwise he is stable. Preoperatively he had a transesophageal echocardiogram that showed an ejection fraction of about 45% with severe aortic stenosis and moderate to severe aortic regurgitation. His cardiac catheterization revealed no obstructive coronary artery disease. His coronary risk factors are remarkable for the history of hyperlipidemia. He is nondiabetic. MEDICATION: His medication at home included aspirin, metoprolol tartrate, rosuvastatin 10 mg daily in addition to albuterol. REVIEW OF SYSTEMS: Review of systems could not be obtained. PHYSICAL EXAMINATION: He is a 45-year-old male, intubated, sedated, in sinus mechanism. Blood pressure is running in the high 90s with a heart rate in the 60s. HEAD: Normocephalic. Eyes: Sclerae anicteric. NECK: No bruit. LUNGS: Clear to auscultation anteriorly. HEART: Regular rate and rhythm. S1, S2. No S3, with rub. No gallop. ABDOMEN: Soft. Positive bowel sounds. No organomegaly. EXTREMITIES: No edema. LAB DATA: Hemoglobin 9.3. IMPRESSION: 1. Status post aortic valve replacement for unicuspid severe aortic stenosis. 2. History of hyperlipidemia. RECOMMENDATION: From the cardiac standpoint, we will continue present therapy. I am hopeful that he will be able to be weaned and extubated soon. Will resume his statin and depending on his progress, further recommendations will be made. Thank you for this consult. Will follow with you. MMODL / IJN: [id number] /
[2020-10-06 17:11] LABS: Glucose,Whole Blood 119 mg/dL (75-99)
[2020-10-06 18:18] LABS: ABG Base Excess -5.3 mmol/L; ABG HCO3 21 mmol/L (21-25); ABG Oxygen Saturation 98.2 % (94-97); ABG PCO2 41 mmHg (35-45); ABG PH 7.32 (7.35-7.45); ABG PO2 102 mmHg (83-108); ABG TCO2 22 mmol/L (19-24); Allen Test Performed? Yes
[2020-10-06 18:25] LABS: Basophils % (A) 0 %; Eosinophils % (A) 0 %; HCT 26.7 % (39.0-53.0); HGB 8.7 gm/dL (13.0-17.5); Lymphocytes # (A) 0.3 k/uL (1.0-4.8); Lymphocytes % (A) 3 %; MCH 30.2 pg (25.0-35.0); MCHC 32.6 g/dL (31.0-37.0); MCV 92.6 fL (80.0-100.0); Mean Platelet Volume 9.6; Monocytes # (A) 0.4 k/uL (0-1.0); Monocytes % (A) 4 %; Neutrophils # (A) 7.8 k/uL (1.3-7.7); Neutrophils % (A) 92 %; RBC 2.88 m/uL (4.30-5.90); RDW 14.6 % (11.5-15.5); WBC 8.5 k/uL (3.8-10.6)
[2020-10-06 18:29] LABS: Platelet Count 91 k/uL (150-450)
[2020-10-06 18:35] LABS: Glucose,Whole Blood 135 mg/dL (75-99)
[2020-10-06] MEDS: KETOROLAC 15 MG/ML 1 ML VIAL IVP SCH ×2 (18:42→23:51)
[2020-10-06 19:31] LABS: Glucose,Whole Blood 128 mg/dL (75-99)
[2020-10-06] MEDS: HEPARIN SODIUM,PORCINE 5,000 UNIT/ML 1 ML VIAL SQ SCH (19:45)
[2020-10-06 20:07] LABS: Glucose,Whole Blood 123 mg/dL (75-99)
[2020-10-06] MEDS: MONTELUKAST 10 MG TAB PO SCH (20:36)
[2020-10-06 20:56] LABS: Glucose,Whole Blood 125 mg/dL (75-99)
[2020-10-06] MEDS ORDERED: CHLORHEXIDINE GLUCONATE 15 ML CUP MUCOUS MEM SCH (21:00)
[2020-10-06 21:52] LABS: Glucose,Whole Blood 122 mg/dL (75-99)
[2020-10-06] MEDS ORDERED: HYDROcodone/APAP 5-325MG 1 EACH TAB PO PRN (22:52)
[2020-10-06 22:54] LABS: Glucose,Whole Blood 120 mg/dL (75-99)
[2020-10-06 23:56] LABS: Glucose,Whole Blood 117 mg/dL (75-99)
--- NOTE | 2020-10-06 23:59 | P.CONS ---
History of Present Illness - History of Present Illness This is a pleasant 45 years old male with past medical history of CVA/TIA, ast hma. He was recently diagnosed with severe aortic stenosis and congenital unicuspid valve with cardiomyopathy and low ejection fraction about 35-40%. He underwent cardiac cath which was negative for significant coronary artery disease. was admitted under cardiothoracic surgery team and underwent aortic valve replacement, postoperatively patient was seen in the ICU he was still intubated and undergoing sedation holiday, he is showing positive mental signs with expected extubation today Vitas looks stable. Labs including CBC, BMP and liver enzymes are unremarkable except for mild anemia He is currently on aspirin 325 mg, Plavix, Lipitor Review of Systems N/a, patient is intubated Past Medical History Past Medical History: Asthma, CVA/TIA Additional Past Medical History / Comment(s): TIA 6-7 yrs. ago-no residual effects, heart murmur, admission in Dec. for "fluid around heart" & difficulty breathing History of Any Multi-Drug Resistant Organisms: None Reported Past Surgical History: Heart Catheterization Additional Past Surgical History / Comment(s): recent [facility] Past Anesthesia/Blood Transfusion Reactions: No Reported Reaction Additional Past Anesthesia/Blood Transfusion Reaction / Comm: has never had general anesthesia or blood transfusion Smoking Status: Never smoker Medications and Allergies Home Medications Medication Instructions Recorded Confirmed Type Ascorbic Acid [Vitamin C] 1,000 mg PO DAILY 08/28/20 10/06/20 History Aspirin 81 mg PO DAILY 08/28/20 10/06/20 History Budesonide/Formoterol Fumarate 2 puff INHALATION BID 08/28/20 10/06/20 History [Symbicort 160-4.5 Mcg Inhaler] Cholecalciferol [Vitamin D3 (25 1,000 unit PO BID 08/28/20 10/06/20 History Mcg = 1000 Iu)] Metoprolol Tartrate [Lopressor] 25 mg PO QAM 08/28/20 10/06/20 History Montelukast Sodium [Singulair] 10 mg PO HS 08/28/20 10/06/20 History [place]-3 Fatty Acids/Fish Oil [Fish 1 each PO DAILY 08/28/20 10/06/20 History Oil 1,000 mg Softgel] Rosuvastatin Calcium [Crestor] 10 mg PO DAILY 08/28/20 10/06/20 History Zinc 50 mg PO DAILY 08/28/20 10/06/20 History Albuterol Inhaler [Ventolin Hfa 2 puff INHALATION RT-QID PRN 10/01/20 10/06/20 History Inhaler] Metoprolol Tartrate [Lopressor] 12.5 mg PO HS 10/01/20 10/06/20 History Allergies Allergy/AdvReac Type Severity Reaction Status Date / Time No Known Allergies Allergy Verified 10/06/20 05:53 Physical Exam Vitals: Vital Signs Temp Pulse Pulse Resp BP BP Pulse Ox 10/06/20 14:09 69 10/06/20 13:56 67 10/06/20 13:30 65 12 100 10/06/20 13:20 65 12 100 10/06/20 13:10 63 12 95 10/06/20 13:00 65 10 L 100 10/06/20 12:50 36.4 F L 64 12 93 L 10/06/20 06:30 97.7 F 77 18 113/77 116/73 96 Intake and Output 10/05/20 10/06/20 10/06/20 22:59 06:59 14:59 Intake Total 100 451.794 Output Total 1335 Balance 100 -883.206 Intake: IV 100 431 Albumin Human 5% 250 ml 250 In Empty Bag 1 bag @ 250 mls/hr IVPB Q1HR PRN Rx#: [id number] CO/CI 60 Lactated Ringers 1,000 ml 100 @ 50 mls/hr IV .Q20H [facility] Rx#:[id number] Pressure bags 18 Intake, IV Titration 20.794 Amount Norepinephrine 4 mg In 20.794 Sodium Chloride 0.9% 250 ml @ 0.05 MCG/KG/MIN 14. 783 mls/hr IV .[id number] [facility] Rx#:[id number] Output: Chest Tube Drainage 75 Left Pleural/Mediastinal 75 Urine 510 Estimated Blood Loss 750 Other: Weight 77.6 kg ABP, PAP, CO, CI - Last 8 Hours Arterial Blood Pressure 92/56 Arterial Blood Pressure 98/62 Arterial Blood Pressure 72/40 Arterial Blood Pressure 69/14 Arterial Blood Pressure 112/58 Pulmonary Artery Pressure 48/23 Pulmonary Artery Pressure 39/20 Pulmonary Artery Pressure 29/8 Pulmonary Artery Pressure 56/26 Cardiac Output 4.2 Cardiac Output 5.1 Cardiac Index 2.3 Cardiac Index 2.8 -GENERAL: The patient is sedated and intubated HEENT: Pupils are round and equally reacting to light. EOMI. No scleral icterus. No conjunctival pallor. Normocephalic, atraumatic. No pharyngeal erythema. No thyromegaly. CARDIOVASCULAR: S1 and S2 present. No murmurs, rubs, or gallops. PULMONARY: Chest is clear to auscultation, no wheezing or crackles. ABDOMEN: Soft, nontender, nondistended, normoactive bowel sounds. No palpable organomegaly. MUSCULOSKELETAL: No joint swelling or deformity. EXTREMITIES: No cyanosis, clubbing, or pedal edema. NEUROLOGICAL: Gross neurological examination did not reveal any focal deficits. SKIN: No rashes. no petechiae. Results CBC & Chem 7: 10/06/20 18:15 10/06/20 12:55 Labs: Abnormal Lab Results - Last 24 Hours (Table) 09/30/20 10/06/20 10/06/20 Range/Units 09:00 08:35 09:08 RBC (4.30-5.90) m/uL Hgb (13.0-17.5) gm/dL Hct (39.0-53.0) % Plt Count (150-450) k/uL Lymphocytes # (1.0-4.8) k/uL INR (<1.2) APTT (22.0-30.0) sec ABG pH (7.35-7.45) ABG pCO2 (35-45) mmHg ABG pO2 >420 H 182 H (83-108) mmHg ABG HCO3 26 H (21-25) mmol/L ABG Total CO2 26 H 27 H (19-24) mmol/L ABG O2 Saturation 100.0 H 99.9 H (94-97) % ABG Hematocrit (34.0-46.0) % ABG Potassium (3.4-4.5) mmol/L ABG Ionized Calcium (4.5-5.3) mg/dL ABG Glucose 100 H (75-99) mg/dL Hemoglobin 11.1 L 11.1 L (13.0-17.5) gm/dL POC Glucose (mg/dL) (75-99) mg/dL Arterial Blood Potassium (3.4-4.5) mmol/L Arterial Blood Glucose 100 H (75-99) mg/dL Crossmatch See Detail 10/06/20 10/06/20 10/06/20 Range/Units 09:50 10:22 10:50 RBC (4.30-5.90) m/uL Hgb (13.0-17.5) gm/dL Hct (39.0-53.0) % Plt Count (150-450) k/uL Lymphocytes # (1.0-4.8) k/uL INR (<1.2) APTT (22.0-30.0) sec ABG pH (7.35-7.45) ABG pCO2 (35-45) mmHg ABG pO2 305 H 187 H 342 H (83-108) mmHg ABG HCO3 (21-25) mmol/L ABG Total CO2 25 H 25 H 25 H (19-24) mmol/L ABG O2 Saturation 100.0 H 99.8 H 100.0 H (94-97) % ABG Hematocrit 26 L 27 L 27 L (34.0-46.0) % ABG Potassium 4.7 H 4.9 H 4.9 H (3.4-4.5) mmol/L ABG Ionized Calcium 4.3 L 4.3 L 4.3 L (4.5-5.3) mg/dL ABG Glucose 109 H 112 H (75-99) mg/dL Hemoglobin 8.6 L 8.8 L 8.6 L (13.0-17.5) gm/dL POC Glucose (mg/dL) (75-99) mg/dL Arterial Blood Potassium 4.7 H 4.9 H 4.9 H (3.4-4.5) mmol/L Arterial Blood Glucose 109 H 112 H (75-99) mg/dL Crossmatch 10/06/20 10/06/20 10/06/20 Range/Units 12:55 12:55 13:01 RBC 3.10 L (4.30-5.90) m/uL Hgb 9.5 L D (13.0-17.5) gm/dL Hct 28.8 L (39.0-53.0) % Plt Count 96 L (150-450) k/uL Lymphocytes # 0.6 L (1.0-4.8) k/uL INR 1.2 H (<1.2) APTT 30.5 H (22.0-30.0) sec ABG pH 7.34 L (7.35-7.45) ABG pCO2 (35-45) mmHg ABG pO2 67 L (83-108) mmHg ABG HCO3 (21-25) mmol/L ABG Total CO2 25 H (19-24) mmol/L ABG O2 Saturation 93.0 L (94-97) % ABG Hematocrit (34.0-46.0) % ABG Potassium (3.4-4.5) mmol/L ABG Ionized Calcium (4.5-5.3) mg/dL ABG Glucose (75-99) mg/dL Hemoglobin (13.0-17.5) gm/dL POC Glucose (mg/dL) (75-99) mg/dL Arterial Blood Potassium (3.4-4.5) mmol/L Arterial Blood Glucose (75-99) mg/dL Crossmatch 10/06/20 10/06/20 Range/Units 13:23 13:45 RBC (4.30-5.90) m/uL Hgb (13.0-17.5) gm/dL Hct (39.0-53.0) % Plt Count (150-450) k/uL Lymphocytes # (1.0-4.8) k/uL INR (<1.2) APTT (22.0-30.0) sec ABG pH 7.29 L (7.35-7.45) ABG pCO2 47 H (35-45) mmHg ABG pO2 238 H (83-108) mmHg ABG HCO3 (21-25) mmol/L ABG Total CO2 (19-24) mmol/L ABG O2 Saturation 100.0 H (94-97) % ABG Hematocrit (34.0-46.0) % ABG Potassium (3.4-4.5) mmol/L ABG Ionized Calcium (4.5-5.3) mg/dL ABG Glucose (75-99) mg/dL Hemoglobin (13.0-17.5) gm/dL POC Glucose (mg/dL) 102 H (75-99) mg/dL Arterial Blood Potassium (3.4-4.5) mmol/L Arterial Blood Glucose (75-99) mg/dL Crossmatch Assessment and Plan Assessment: Severe aortic stenosis with unicuspid aortic valve status post aortic valve replacement Cardiomyopathy with ejection fraction of 35-40% Mild anemia History of asthma, not an active issue History of CVA/TIA Plan: This is a pleasant 45 years old male who presents with severe aortic stenosis status post aortic valve replacement. The primary cardiothoracic surgery team on the case, as well as pulmonary/critical care team. Continue with aspirin and Plavix. Postoperative management. Pain control. Monitor glucose Labs and medication were reviewed.. Continue same treatment. Continue with symptomatic treatment. Resume home medication. Monitor lytes and vitals. DVT and GI prophylaxis. Further recommendationsas per clinical course of the patient DVT prophylaxis: Subcutaneous heparin GI Prophylaxis: Ppi Prognosis is guarded
[2020-10-07 00:58] LABS: Glucose,Whole Blood 118 mg/dL (75-99)
[2020-10-07 02:00] LABS: Glucose,Whole Blood 119 mg/dL (75-99)
[2020-10-07 02:53] LABS: Glucose,Whole Blood 119 mg/dL (75-99)
[2020-10-07 03:50] LABS: Glucose,Whole Blood 116 mg/dL (75-99)
[2020-10-07 03:59] LABS: Basophils % (A) 0 %; Eosinophils % (A) 0 %; HCT 24.4 % (39.0-53.0); Lymphocytes # (A) 0.3 k/uL (1.0-4.8); Lymphocytes % (A) 4 %; MCHC 32.7 g/dL (31.0-37.0); MCV 91.9 fL (80.0-100.0); Mean Platelet Volume 10.1; Monocytes # (A) 0.3 k/uL (0-1.0); Monocytes % (A) 4 %; Neutrophils # (A) 6.2 k/uL (1.3-7.7); Neutrophils % (A) 90 %; RBC 2.66 m/uL (4.30-5.90); RDW 14.7 % (11.5-15.5); WBC 6.9 k/uL (3.8-10.6)
[2020-10-07 04:01] LABS: Platelet Count 86 k/uL (150-450)
[2020-10-07] MEDS: HEPARIN SODIUM,PORCINE 5,000 UNIT/ML 1 ML VIAL SQ SCH ×3 (04:01→20:23)
[2020-10-07 04:28] LABS: Ionized Calcium 4.7 mg/dL (4.5-5.3)
[2020-10-07 04:46] LABS: ALT 9 U/L (4-49); AST 34 U/L (17-59); African American GFR (CKD) >90 (>60 ml/min/1.73 sqM); Albumin 3.2 g/dL (3.5-5.0); Alkaline Phosphatase 24 U/L (38-126); Anion Gap 7 mmol/L; Blood Urea Nitrogen 12 mg/dL (9-20); Calcium 7.7 mg/dL (8.4-10.2); Carbon Dioxide 23 mmol/L (22-30); Chloride 107 mmol/L (98-107); Glucose 109 mg/dL (74-99); Magnesium 2.6 mg/dL (1.6-2.3); Non-African American GFR(CKD) >90 (>60 ml/min/1.73 sqM); Potassium 4.3 mmol/L (3.5-5.1); Sodium 137 mmol/L (137-145); Total Bilirubin 0.9 mg/dL (0.2-1.3); Total Protein 4.8 g/dL (6.3-8.2)
[2020-10-07 04:52] LABS: Glucose,Whole Blood 118 mg/dL (75-99)
[2020-10-07] MEDS: KETOROLAC 15 MG/ML 1 ML VIAL IVP SCH ×4 (06:07→23:19)
[2020-10-07 06:44] LABS: Glucose,Whole Blood 129 mg/dL (75-99)
[2020-10-07] MEDS: NOREPINEPHRINE 4 MG in SODIUM CHLORIDE 0.9% 250 ML IV SCH (07:01)
--- NOTE | 2020-10-07 07:02 | XR ---
EXAMINATION TYPE: XR chest 1V portable DATE OF EXAM: 10/07/2020 CLINICAL HISTORY: Difficulty breathing progress study. Post operative CABG. TECHNIQUE: Single AP portable upright view of the chest is obtained. COMPARISON: Chest x-ray from one day earlier. FINDINGS: Interval extubation with removal of endotracheal and orogastric tubes. Stable left basilar chest tube and mediastinal drainage catheter. Stable right internal jugular [place] catheter. Over lying sternal wires along with left atrial appendage clip redemonstrated. Stable cardiomegaly. Worsen ing right greater than left bilateral lower lung opacities. Small to tiny left apical pneumothorax wilson spected on current study. No mediastinal shift. Visualized osseous structures are intact. IMPRESSION: Interval extubation. Slight worsening left basilar atelectasis and/or infiltrate. New sma ll to tiny left apical pneumothorax. Significant worsening right mid to lower lung acute infiltrate a nd/or atelectasis with likely small to tiny right pleural effusion. A Yellow level critical message alert has been initiated for Tiffany Allen via the [employer] tical Results System on 10/07/2020 7:00 AM. This message alert has been sent to Tiffany Allen via the pr eferences provided by the clinician for the receipt of Radiology Critical Findings. Message ID [id number] 1.
[2020-10-07] MEDS: IPRATROPIUM-ALBUTEROL 3 ML NEB INHALATION SCH ×4 (07:14→19:19)
--- NOTE | 2020-10-07 07:51 | P.PN ---
Subjective Progress Note Date: 10/07/20 Principal diagnosis: Aortic stenosis, congenital unicuspid valve, preserved left ventricular function. Previous history of hyperlipidemia, asthma with moderate airway obstruction as well as restriction with preoperative FEV1 64% of predicted, remote TIA history POD #1 aortic valve replacement with 23 mm On-X mechanical valve, epi-aortic ultrasonography, ligation of the left atrial appendage with a 35 mm AtriCure clip Postoperative acute blood loss anemia, expected outcome secondary to hemodilution and cardiopulmonary bypass pump The patient was seen and examined in the intensive care unit. He is currently sitting up and recliner in no acute distress. Does complain of postsurgical pain which is well controlled on current medication regimen, denies shortness of breath. He was successfully extubated last night at 18:28. Remains in sinus rhythm with heart rate in the 90s, hemodynamically stable on no inotropes or pressors. Mediastinal/left pleural chest tubes, right internal jugular Lyle/Cordis, right radial arterial line all present. No new concerns. Objective - Vital Signs Vital signs: Vital Signs Temp 36.4 F L 10/06/20 12:50 Pulse 91 10/07/20 07:14 Resp 18 10/07/20 07:14 BP 116/73 10/06/20 06:30 Pulse Ox 96 10/07/20 07:14 Intake & Output 10/06/20 10/07/20 10/07/20 18:59 06:59 18:59 Intake Total 1563.239 994.889 Output Total 2140 860 Balance -576.761 134.889 Weight 78 kg Intake: IV 1486 977 ACETAMINOPHEN IV (For NPO 100 100 ) 1,000 mg In Empty Bag 1 bag @ 400 mls/hr IVPB Q6H [facility] Rx#:[id number] Albumin Human 5% 250 ml 750 In Empty Bag 1 bag @ 250 mls/hr IVPB Q1HR PRN Rx#: [id number] CO/CI 170 60 Lactated Ringers 1,000 ml 350 650 @ 50 mls/hr IV .Q20H [facility] Rx#:[id number] Pressure bags 63 117 ceFAZolin 2 gm In Sodium 50 50 Chloride 0.9% 50 ml @ 100 mls/hr IVPB Q8HR [facility] Rx# :[id number] Intake, IV Titration 77.239 17.889 Amount Insulin Regular 100 unit 7.441 In Sodium Chloride 0.9% 100 ml @ Per Protocol IV .Q0M [facility] Rx#:[id number] Norepinephrine 4 mg In 66.917 10.448 Sodium Chloride 0.9% 250 ml @ 0.05 MCG/KG/MIN 14. 783 mls/hr IV .[id number] [facility] Rx#:[id number] propofoL 500 mg In Empty 10.322 Bag 1 bag @ Titrate IV . Q0M [facility] Rx#:[id number] Output: Chest Tube Drainage 270 420 Left Pleural/Mediastinal 270 420 Urine 1120 440 Estimated Blood Loss 750 Other: Voiding Method Indwelling Catheter Indwelling Catheter ABP, PAP, CO, CI - Last Documented Arterial Blood Pressure 94/47 Pulmonary Artery Pressure 33/13 Cardiac Output 6.5 Cardiac Index 3.6 - Constitutional General appearance: Present: cooperative, no acute distress - Respiratory Details: Lungs sounds clear but diminished on the right side. Respirations even, nonlabored. Currently on 4 L nasal cannula with oxygen saturation 94%. Barely able to achieve 500 mL on his incentive spirometry, weak cough. Mediastinal/left pleural chest tube continue to wall suction, 270 mL thin serosa nguineous drainage overnight, 700 mL since surgery, no air leak present. - Cardiovascular Details: S1, S2 present, positive valvular click. Regular rate and rhythm, sinus rhythm on telemetry with heart rate in the 90s. Sternum stable. A/V epicardial pacema ker wires present, grounded. Palpable peripheral pulses bilaterally. No edema present. No calf pain or tenderness noted. Right internal jugular Lyle/Cordis, right radial arterial line present. Last CO/CI 6.5/3.6 with PA pressures 30/14 and CVP 5 on no inotropes or pressors. Heart hugger in place with patient demonstrating appropriate use. Antiembolism stockings, SCDs present. - Gastrointestinal Gastrointestinal Comment(s): Abdomen soft, nontender, nondistended. Hypoactive bowel sounds present 4 quadrants. Tolerating sips of water. Negative flatus - Genitourinary Genitourinary Comment(s): Lainez present draining clear, yellow urine. Output 25-35 mL/h overnight - Integumentary Integumentary Comment(s): Skin is warm and dry with evidence of good perfusion. Anterior chest incision well approximated and covered with dry intact dressing. - Neurologic Neurologic: Present: CNII-XII intact - Musculoskeletal Musculoskeletal: Present: gait normal, strength equal bilaterally - Psychiatric Psychiatric: Present: A&O x's 3, appropriate affect, intact judgment & insight - Allied health notes Allied health notes reviewed: nursing - Labs CBC & Chem 7: 10/07/20 03:55 10/07/20 03:55 Labs: Abnormal Lab Results - Last 24 Hours (Table) 09/30/20 10/06/20 10/06/20 Range/Units 09:00 08:35 09:08 RBC (4.30-5.90) m/uL Hgb (13.0-17.5) gm/dL Hct (39.0-53.0) % Plt Count (150-450) k/uL Neutrophils # (1.3-7.7) k/uL Lymphocytes # (1.0-4.8) k/uL INR (<1.2) APTT (22.0-30.0) sec ABG pH (7.35-7.45) ABG pCO2 (35-45) mmHg ABG pO2 >420 H 182 H (83-108) mmHg ABG HCO3 26 H (21-25) mmol/L ABG Total CO2 26 H 27 H (19-24) mmol/L ABG O2 Saturation 100.0 H 99.9 H (94-97) % ABG Hematocrit (34.0-46.0) % ABG Potassium (3.4-4.5) mmol/L ABG Ionized Calcium (4.5-5.3) mg/dL ABG Glucose 100 H (75-99) mg/dL Hemoglobin 11.1 L 11.1 L (13.0-17.5) gm/dL Chloride (98-107) mmol/L Glucose (74-99) mg/dL POC Glucose (mg/dL) (75-99) mg/dL Calcium (8.4-10.2) mg/dL Magnesium (1.6-2.3) mg/dL Alkaline Phosphatase (38-126) U/L Total Protein (6.3-8.2) g/dL Albumin (3.5-5.0) g/dL Arterial Blood Potassium (3.4-4.5) mmol/L Arterial Blood Glucose 100 H (75-99) mg/dL Crossmatch See Detail 10/06/20 10/06/20 10/06/20 Range/Units 09:50 10:22 10:50 RBC (4.30-5.90) m/uL Hgb (13.0-17.5) gm/dL Hct (39.0-53.0) % Plt Count (150-450) k/uL Neutrophils # (1.3-7.7) k/uL Lymphocytes # (1.0-4.8) k/uL INR (<1.2) APTT (22.0-30.0) sec ABG pH (7.35-7.45) ABG pCO2 (35-45) mmHg ABG pO2 305 H 187 H 342 H (83-108) mmHg ABG HCO3 (21-25) mmol/L ABG Total CO2 25 H 25 H 25 H (19-24) mmol/L ABG O2 Saturation 100.0 H 99.8 H 100.0 H (94-97) % ABG Hematocrit 26 L 27 L 27 L (34.0-46.0) % ABG Potassium 4.7 H 4.9 H 4.9 H (3.4-4.5) mmol/L ABG Ionized Calcium 4.3 L 4.3 L 4.3 L (4.5-5.3) mg/dL ABG Glucose 109 H 112 H (75-99) mg/dL Hemoglobin 8.6 L 8.8 L 8.6 L (13.0-17.5) gm/dL Chloride (98-107) mmol/L Glucose (74-99) mg/dL POC Glucose (mg/dL) (75-99) mg/dL Calcium (8.4-10.2) mg/dL Magnesium (1.6-2.3) mg/dL Alkaline Phosphatase (38-126) U/L Total Protein (6.3-8.2) g/dL Albumin (3.5-5.0) g/dL Arterial Blood Potassium 4.7 H 4.9 H 4.9 H (3.4-4.5) mmol/L Arterial Blood Glucose 109 H 112 H (75-99) mg/dL Crossmatch 10/06/20 10/06/20 10/06/20 Range/Units 12:55 12:55 12:55 RBC 3.10 L (4.30-5.90) m/uL Hgb 9.5 L D (13.0-17.5) gm/dL Hct 28.8 L (39.0-53.0) % Plt Count 96 L (150-450) k/uL Neutrophils # (1.3-7.7) k/uL Lymphocytes # 0.6 L (1.0-4.8) k/uL INR 1.2 H (<1.2) APTT 30.5 H (22.0-30.0) sec ABG pH (7.35-7.45) ABG pCO2 (35-45) mmHg ABG pO2 (83-108) mmHg ABG HCO3 (21-25) mmol/L ABG Total CO2 (19-24) mmol/L ABG O2 Saturation (94-97) % ABG Hematocrit (34.0-46.0) % ABG Potassium (3.4-4.5) mmol/L ABG Ionized Calcium (4.5-5.3) mg/dL ABG Glucose (75-99) mg/dL Hemoglobin (13.0-17.5) gm/dL Chloride 111 H (98-107) mmol/L Glucose (74-99) mg/dL POC Glucose (mg/dL) (75-99) mg/dL Calcium 8.2 L (8.4-10.2) mg/dL Magnesium 4.0 H (1.6-2.3) mg/dL Alkaline Phosphatase 26 L (38-126) U/L Total Protein 4.8 L (6.3-8.2) g/dL Albumin 3.1 L (3.5-5.0) g/dL Arterial Blood Potassium (3.4-4.5) mmol/L Arterial Blood Glucose (75-99) mg/dL Crossmatch 10/06/20 10/06/20 10/06/20 Range/Units 13:01 13:23 13:45 RBC (4.30-5.90) m/uL Hgb (13.0-17.5) gm/dL Hct (39.0-53.0) % Plt Count (150-450) k/uL Neutrophils # (1.3-7.7) k/uL Lymphocytes # (1.0-4.8) k/uL INR (<1.2) APTT (22.0-30.0) sec ABG pH 7.34 L 7.29 L (7.35-7.45) ABG pCO2 47 H (35-45) mmHg ABG pO2 67 L 238 H (83-108) mmHg ABG HCO3 (21-25) mmol/L ABG Total CO2 25 H (19-24) mmol/L ABG O2 Saturation 93.0 L 100.0 H (94-97) % ABG Hematocrit (34.0-46.0) % ABG Potassium (3.4-4.5) mmol/L ABG Ionized Calcium (4.5-5.3) mg/dL ABG Glucose (75-99) mg/dL Hemoglobin (13.0-17.5) gm/dL Chloride (98-107) mmol/L Glucose (74-99) mg/dL POC Glucose (mg/dL) 102 H (75-99) mg/dL Calcium (8.4-10.2) mg/dL Magnesium (1.6-2.3) mg/dL Alkaline Phosphatase (38-126) U/L Total Protein (6.3-8.2) g/dL Albumin (3.5-5.0) g/dL Arterial Blood Potassium (3.4-4.5) mmol/L Arterial Blood Glucose (75-99) mg/dL Crossmatch 10/06/20 10/06/20 10/06/20 Range/Units 14:28 15:09 15:33 RBC 2.95 L (4.30-5.90) m/uL Hgb 9.3 L (13.0-17.5) gm/dL Hct 27.2 L (39.0-53.0) % Plt Count 96 L (150-450) k/uL Neutrophils # (1.3-7.7) k/uL Lymphocytes # 0.6 L (1.0-4.8) k/uL INR (<1.2) APTT (22.0-30.0) sec ABG pH (7.35-7.45) ABG pCO2 (35-45) mmHg ABG pO2 (83-108) mmHg ABG HCO3 (21-25) mmol/L ABG Total CO2 (19-24) mmol/L ABG O2 Saturation (94-97) % ABG Hematocrit (34.0-46.0) % ABG Potassium (3.4-4.5) mmol/L ABG Ionized Calcium (4.5-5.3) mg/dL ABG Glucose (75-99) mg/dL Hemoglobin (13.0-17.5) gm/dL Chloride (98-107) mmol/L Glucose (74-99) mg/dL POC Glucose (mg/dL) 112 H 116 H (75-99) mg/dL Calcium (8.4-10.2) mg/dL Magnesium (1.6-2.3) mg/dL Alkaline Phosphatase (38-126) U/L Total Protein (6.3-8.2) g/dL Albumin (3.5-5.0) g/dL Arterial Blood Potassium (3.4-4.5) mmol/L Arterial Blood Glucose (75-99) mg/dL Crossmatch 10/06/20 10/06/20 10/06/20 Range/Units 16:03 17:10 18:15 RBC 2.88 L (4.30-5.90) m/uL Hgb 8.7 L (13.0-17.5) gm/dL Hct 26.7 L (39.0-53.0) % Plt Count 91 L (150-450) k/uL Neutrophils # 7.8 H (1.3-7.7) k/uL Lymphocytes # 0.3 L (1.0-4.8) k/uL INR (<1.2) APTT (22.0-30.0) sec ABG pH (7.35-7.45) ABG pCO2 (35-45) mmHg ABG pO2 (83-108) mmHg ABG HCO3 (21-25) mmol/L ABG Total CO2 (19-24) mmol/L ABG O2 Saturation (94-97) % ABG Hematocrit (34.0-46.0) % ABG Potassium (3.4-4.5) mmol/L ABG Ionized Calcium (4.5-5.3) mg/dL ABG Glucose (75-99) mg/dL Hemoglobin (13.0-17.5) gm/dL Chloride (98-107) mmol/L Glucose (74-99) mg/dL POC Glucose (mg/dL) 121 H 119 H (75-99) mg/dL Calcium (8.4-10.2) mg/dL Magnesium (1.6-2.3) mg/dL Alkaline Phosphatase (38-126) U/L Total Protein (6.3-8.2) g/dL Albumin (3.5-5.0) g/dL Arterial Blood Potassium (3.4-4.5) mmol/L Arterial Blood Glucose (75-99) mg/dL Crossmatch 10/06/20 10/06/20 10/06/20 Range/Units 18:16 18:16 19:25 RBC (4.30-5.90) m/uL Hgb (13.0-17.5) gm/dL Hct (39.0-53.0) % Plt Count (150-450) k/uL Neutrophils # (1.3-7.7) k/uL Lymphocytes # (1.0-4.8) k/uL INR (<1.2) APTT (22.0-30.0) sec ABG pH 7.32 L (7.35-7.45) ABG pCO2 (35-45) mmHg ABG pO2 (83-108) mmHg ABG HCO3 (21-25) mmol/L ABG Total CO2 (19-24) mmol/L ABG O2 Saturation 98.2 H (94-97) % ABG Hematocrit (34.0-46.0) % ABG Potassium (3.4-4.5) mmol/L ABG Ionized Calcium (4.5-5.3) mg/dL ABG Glucose (75-99) mg/dL Hemoglobin (13.0-17.5) gm/dL Chloride (98-107) mmol/L Glucose (74-99) mg/dL POC Glucose (mg/dL) 135 H 128 H (75-99) mg/dL Calcium (8.4-10.2) mg/dL Magnesium (1.6-2.3) mg/dL Alkaline Phosphatase (38-126) U/L Total Protein (6.3-8.2) g/dL Albumin (3.5-5.0) g/dL Arterial Blood Potassium (3.4-4.5) mmol/L Arterial Blood Glucose (75-99) mg/dL Crossmatch 10/06/20 10/06/20 10/06/20 Range/Units 20:06 20:54 21:49 RBC (4.30-5.90) m/uL Hgb (13.0-17.5) gm/dL Hct (39.0-53.0) % Plt Count (150-450) k/uL Neutrophils # (1.3-7.7) k/uL Lymphocytes # (1.0-4.8) k/uL INR (<1.2) APTT (22.0-30.0) sec ABG pH (7.35-7.45) ABG pCO2 (35-45) mmHg ABG pO2 (83-108) mmHg ABG HCO3 (21-25) mmol/L ABG Total CO2 (19-24) mmol/L ABG O2 Saturation (94-97) % ABG Hematocrit (34.0-46.0) % ABG Potassium (3.4-4.5) mmol/L ABG Ionized Calcium (4.5-5.3) mg/dL ABG Glucose (75-99) mg/dL Hemoglobin (13.0-17.5) gm/dL Chloride (98-107) mmol/L Glucose (74-99) mg/dL POC Glucose (mg/dL) 123 H 125 H 122 H (75-99) mg/dL Calcium (8.4-10.2) mg/dL Magnesium (1.6-2.3) mg/dL Alkaline Phosphatase (38-126) U/L Total Protein (6.3-8.2) g/dL Albumin (3.5-5.0) g/dL Arterial Blood Potassium (3.4-4.5) mmol/L Arterial Blood Glucose (75-99) mg/dL Crossmatch 10/06/20 10/06/20 10/07/20 Range/Units 22:52 23:55 00:56 RBC (4.30-5.90) m/uL Hgb (13.0-17.5) gm/dL Hct (39.0-53.0) % Plt Count (150-450) k/uL Neutrophils # (1.3-7.7) k/uL Lymphocytes # (1.0-4.8) k/uL INR (<1.2) APTT (22.0-30.0) sec ABG pH (7.35-7.45) ABG pCO2 (35-45) mmHg ABG pO2 (83-108) mmHg ABG HCO3 (21-25) mmol/L ABG Total CO2 (19-24) mmol/L ABG O2 Saturation (94-97) % ABG Hematocrit (34.0-46.0) % ABG Potassium (3.4-4.5) mmol/L ABG Ionized Calcium (4.5-5.3) mg/dL ABG Glucose (75-99) mg/dL Hemoglobin (13.0-17.5) gm/dL Chloride (98-107) mmol/L Glucose (74-99) mg/dL POC Glucose (mg/dL) 120 H 117 H 118 H (75-99) mg/dL Calcium (8.4-10.2) mg/dL Magnesium (1.6-2.3) mg/dL Alkaline Phosphatase (38-126) U/L Total Protein (6.3-8.2) g/dL Albumin (3.5-5.0) g/dL Arterial Blood Potassium (3.4-4.5) mmol/L Arterial Blood Glucose (75-99) mg/dL Crossmatch 10/07/20 10/07/20 10/07/20 Range/Units 01:59 02:52 03:49 RBC (4.30-5.90) m/uL Hgb (13.0-17.5) gm/dL Hct (39.0-53.0) % Plt Count (150-450) k/uL Neutrophils # (1.3-7.7) k/uL Lymphocytes # (1.0-4.8) k/uL INR (<1.2) APTT (22.0-30.0) sec ABG pH (7.35-7.45) ABG pCO2 (35-45) mmHg ABG pO2 (83-108) mmHg ABG HCO3 (21-25) mmol/L ABG Total CO2 (19-24) mmol/L ABG O2 Saturation (94-97) % ABG Hematocrit (34.0-46.0) % ABG Potassium (3.4-4.5) mmol/L ABG Ionized Calcium (4.5-5.3) mg/dL ABG Glucose (75-99) mg/dL Hemoglobin (13.0-17.5) gm/dL Chloride (98-107) mmol/L Glucose (74-99) mg/dL POC Glucose (mg/dL) 119 H 119 H 116 H (75-99) mg/dL Calcium (8.4-10.2) mg/dL Magnesium (1.6-2.3) mg/dL Alkaline Phosphatase (38-126) U/L Total Protein (6.3-8.2) g/dL Albumin (3.5-5.0) g/dL Arterial Blood Potassium (3.4-4.5) mmol/L Arterial Blood Glucose (75-99) mg/dL Crossmatch 10/07/20 10/07/20 10/07/20 Range/Units 03:55 03:55 04:51 RBC 2.66 L (4.30-5.90) m/uL Hgb 8.0 L (13.0-17.5) gm/dL Hct 24.4 L (39.0-53.0) % Plt Count 86 L (150-450) k/uL Neutrophils # (1.3-7.7) k/uL Lymphocytes # 0.3 L (1.0-4.8) k/uL INR (<1.2) APTT (22.0-30.0) sec ABG pH (7.35-7.45) ABG pCO2 (35-45) mmHg ABG pO2 (83-108) mmHg ABG HCO3 (21-25) mmol/L ABG Total CO2 (19-24) mmol/L ABG O2 Saturation (94-97) % ABG Hematocrit (34.0-46.0) % ABG Potassium (3.4-4.5) mmol/L ABG Ionized Calcium (4.5-5.3) mg/dL ABG Glucose (75-99) mg/dL Hemoglobin (13.0-17.5) gm/dL Chloride (98-107) mmol/L Glucose 109 H (74-99) mg/dL POC Glucose (mg/dL) 118 H (75-99) mg/dL Calcium 7.7 L (8.4-10.2) mg/dL Magnesium 2.6 H (1.6-2.3) mg/dL Alkaline Phosphatase 24 L (38-126) U/L Total Protein 4.8 L (6.3-8.2) g/dL Albumin 3.2 L (3.5-5.0) g/dL Arterial Blood Potassium (3.4-4.5) mmol/L Arterial Blood Glucose (75-99) mg/dL Crossmatch 10/07/20 Range/Units 06:42 RBC (4.30-5.90) m/uL Hgb (13.0-17.5) gm/dL Hct (39.0-53.0) % Plt Count (150-450) k/uL Neutrophils # (1.3-7.7) k/uL Lymphocytes # (1.0-4.8) k/uL INR (<1.2) APTT (22.0-30.0) sec ABG pH (7.35-7.45) ABG pCO2 (35-45) mmHg ABG pO2 (83-108) mmHg ABG HCO3 (21-25) mmol/L ABG Total CO2 (19-24) mmol/L ABG O2 Saturation (94-97) % ABG Hematocrit (34.0-46.0) % ABG Potassium (3.4-4.5) mmol/L ABG Ionized Calcium (4.5-5.3) mg/dL ABG Glucose (75-99) mg/dL Hemoglobin (13.0-17.5) gm/dL Chloride (98-107) mmol/L Glucose (74-99) mg/dL POC Glucose (mg/dL) 129 H (75-99) mg/dL Calcium (8.4-10.2) mg/dL Magnesium (1.6-2.3) mg/dL Alkaline Phosphatase (38-126) U/L Total Protein (6.3-8.2) g/dL Albumin (3.5-5.0) g/dL Arterial Blood Potassium (3.4-4.5) mmol/L Arterial Blood Glucose (75-99) mg/dL Crossmatch - Imaging and Cardiology Chest x-ray: report reviewed, image reviewed Assessment and Plan Assessment: 1. Aortic stenosis, congenital unicuspid valve, status post mechanical aortic valve replacement 2. Preserved left ventricular function, preoperative EF 55-60% 3. History of hyperlipidemia, treated, cholesterol 110, LDL 44 4. Asthma, stable with moderate airway obstruction as well as restriction, preoperative FEV1 64% of predicted 5. Remote TIA history 6. Postoperative acute blood loss anemia, expected Plan: 1. Continue aspirin, statin, Plavix, beta bowen therapy. Will increase beta bowen therapy as tolerated 2. Patient will eventually need Coumadin after all lines and tubes have been discontinued, will stop Plavix and decrease aspirin dose once we start Coumadin. Goal INR for first 3 months 2-3, after 3 months goal INR 1.5-2 3. Wean O2 as tolerated. Encourage incentive spirometry use 10 times every hour while awake. Bronchodilators per pulmonology 4. Increase activity, ambulate as tolerated. PT/OT/cardiac rehab consulted 5. Will monitor daily labs and x-rays. Electrolyte replacement per protocol. No transfusion at this point 6. Pain control with current medication regimen 7. Insulin management per primary care service. Patient is not diabetic, preoperative hemoglobin A1c 5.4% 8. Will continue chest tubes for another 24 hours 9. Will continue Lainez catheter for another 24 hours 10. Strict accurate intake and output. Daily weights using standard upscale 11. Discontinue Lyle. Connect Cordis to continuous CVP monitoring 12. More recommendations to follow based on patient's progress Time with Patient: Greater than 30
[2020-10-07] MEDS: LACTATED RINGERS 1,000 ML IV SCH (07:53)
[2020-10-07] MEDS: ALBUMIN HUMAN 5% 250 ML in EMPTY BAG 1 BAG IVPB PRN (08:36)
[2020-10-07] MEDS: ATORVASTATIN 40 MG TAB PO SCH (08:37)
[2020-10-07] MEDS: ASPIRIN 325 MG TAB PO SCH (08:37)
[2020-10-07] MEDS: CLOPIDOGREL 75 MG TAB PO SCH (08:37)
[2020-10-07] MEDS: HYDROcodone/APAP 5-325MG 1 EACH TAB PO PRN ×3 (08:38→20:23)
[2020-10-07] MEDS ORDERED: MAGNESIUM HYDROXIDE 2,400 MG/10 ML CUP PO PRN (09:00)
[2020-10-07] MEDS ORDERED: bisacodyL 10 MG SUPP RECTAL PRN (09:00)
[2020-10-07] MEDS ORDERED: PANTOPRAZOLE 40 MG/10 ML VIAL IVP SCH (09:00)
--- NOTE | 2020-10-07 09:10 | PN ---
PROGRESS NOTE Mr. Mejia is a 45-year-old male with a unicuspid aortic valve with aortic stenosis, followed by Dr. Nallely Cornelius. Loc underwent aortic valve replacement yesterday. He is extubated, sitting up in the chair. He has some soreness in the chest, but no significant symptoms. He has mild dyspnea. No dizziness. No palpitation. He is in sinus mechanism. Hemodynamically, he is stable. He continues to be at this time on aspirin once a day, Lipitor 40 mg daily, metoprolol tartrate 12.5 mg twice a day. PHYSICAL EXAMINATION: Blood pressure running in the high 90s with the heart rate in the 90s. LUNGS: A few crackles at the bases. HEART: Regular rate and rhythm. S1, S2. No rub appreciated. ABDOMEN: Soft, nontender. EXTREMITIES: No edema. LAB DATA: Lab data revealed hemoglobin of 8. BUN and creatinine 12 and 0.75. His chest x-ray showed a small pneumothorax with small pleural effusion. IMPRESSION: 1. Status post aortic valve replacement with a unicuspid aortic valve. 2. History of hyperlipidemia. RECOMMENDATION: From the cardiac standpoint, will continue present therapy. Continue incentive spirometry. Increase his level of activity. Depending on his progress, further recommendation will be made. MMODL / IJN: [id number] /
[2020-10-07] MEDS: METOPROLOL TARTRATE 12.5 MG TAB PO SCH ×2 (10:13→20:23)
--- NOTE | 2020-10-07 10:31 | CDI ---
Documentation Clarification Form Date: 10/07/2020 10:11:40 AM From: Shanti Hilario CCS, CCDS Admit Date: 10/06/2020 05:31:00 AM Patient Name: Bebo Mejia Visit Number: [id number] Discharge Date: ATTENTION: The Clinical Documentation Specialists (CDI) and [facility] Coding Staff appreciate your assistance in clarifying documentation. Please respond to the clarification below the line at the bottom and electronically sign. The CDI & [facility] Coding staff will review the response and follow-up if needed. Please note: Queries are made part of the Legal Health Record. If you have any questions, please contact the author of this message via ITS. Dr. Basilio Jiménez: The following was documented in the 10/06 OR Note: "Was a small tear on the ascending aorta posteriorly which was repaired with a 6-0 Prolene." History/Risk Factors: Mild intermittent bronchial asthma, TIA 6-7 years ago, Heart murmur, Cardiomyopathy w/EF 35-40%, History of CVA 20 years ago. Clinical Indicators: Presented for elective AVR on 10/06. Preoperative Diagnosis 10/06: Aortic stenosis, congenital unicuspid valve Postoperative Diagnosis 10/06: Same 10/06 Procedure: Aortic valve replacement with 23 mm On-X mechanical valve, epi- aortic ultrasonography, ligation of left atrial appendage with 35 mm AtriCure clip. Treatment 10/06: Routine ICU management, extubated POD 1 to 35% vnm, currently on 4L nc (10/07), IV Cefazolin, IV Albumin 250 mls @ 250 mls/hr q1H, INH Duoneb, IV Insulin, IV Lactated Ringers 1,000 mls @ 20 mls/hr q24H, IV Tylenol, IV toradol, Heparin sq Based on the clinical evidence and your professional judgment, please specify the significance of the documented intraoperative tear: ox Is an expected outcome of the surgical procedure o Is not an expected outcome of the surgical procedure o Other, please specify o Unable to determine (Last Revision: November 2017) expec MTDD
--- NOTE | 2020-10-07 10:49 | P.PN ---
Subjective Progress Note Date: 10/07/20 Principal diagnosis: Aortic valve stenosis 45-year-old white male patient with known history of heart murmur since youth was diagnosed with severe bicuspid aortic valvular disease and subsequently underwent transesophageal echocardiogram and cardiac catheterization. Transesophageal echocardiogram showed severe aortic valvular stenosis, and unicuspid valve. His left ventricular systolic function showed an EF of 35-40%. Coronary cath was negative for any occlusive coronary artery disease. Medical history is positive for mild intermittent bronchial asthma, and a history of a mini stroke 20 years ago. Family history is positive for hypothyroidism and chronic kidney disease in his father and breast cancer in his mother. Today on 10/06/2020 patient presented for aortic valve replacement with a mechanical valve, epiaortic ultrasonography, and ligation of left atrial appendage with 35 mm AtriCure clip. Patient is seen in the postoperative period in the intensive care unit. Patient is sedated on mechanical ventilator, current vent settings are assist-control with a rate of 12, tidal volumes 450, FiO2 70% and PEEP of 8. His postoperative blood gases showed pO2 of 67, pCO2 43, pH of 7.34, and this was done on assist control of 12, 450, 100% and PEEP of 5 and subsequently his PEEP was increased up to 8 and FiO2 was dropped down to 70%. Follow-up blood gases showed pO2 of 238, pCO2 47, pH of 7.29, and the rate was increased to 16. Hemodynamically patient is stable, minimal output in the mediastinal and left pleural chest tube, 100 mL of single and is output in the Pleur-evac. Patient is on lactated Ringer's at a rate of 50 ML per hour, and difficulty reveal an is at 20 mics per minute, and levothyroid is at 1 mics per minute. No other drips. Blood pressure is 82/50, sinus mechanism, patient has epicardial wires connected to external pacemaker box with VVI backup rate of 50, CVP is 13, PA pressures 44/20, cardiac output is 4.2, cardiac index is 2.3. Postoperative blood work has been reviewed showing hemoglobin of 9.5, platelet count is 96, io nized 1.2, electrolytes and renal profile were unremarkable. Chest x-ray shows a mild infiltrate in the left base, ETT in the appropriate position, chest tubes have been noted. On 10/07/2020 patient seen in follow-up in intensive care unit, today is postop day #1, status post aortic valve replacement with a mechanical aortic valve. Patient was successfully weaned and extubated from the mechanical ventilator within 5-1/2 hours from the OR exit time on postoperative day 0 on 10/06/2020. This morning he seen sitting up in a chair, breathing comfortable, he is currently on 4 L of oxygen his pulse ox is 97%, he is breathing comfortably, he is working on incentive spirometer, he is achieving about 500-750 on his incentive spirometer, today's chest x-ray has been reviewed showing slight wors ening of left basilar atelectasis new small tiny left apical pneumothorax, significant worsening of the right mid to lower lung acute infiltrate and/or atelectasis with small to tiny right pleural effusion. Today's labs show no evidence of leukocytosis, patient has been afebrile, today his hemoglobin is 8, electrocerebral renal profile are unremarkable, has had good cardiac output and indices, last one this morning was 6.5 and 3.6 respectively, CVP is 12, patient got additional albumin this morning for low CVP, his [place] catheter has since been discontinued, he is in sinus mechanism, epicardial wires connected to an external pacemaker box with VVI backup, sinus rhythm with a rate of 89, not any pressor support, he is on lactated Ringer's a rate of 50 ML per hour. His mediastinal and left pleural chest tube has a total of 700 mL of serosanguineous then output since surgery yesterday, his pain is fairly well controlled, no altered mentation, he is responding to questions appropriately, midsternal incision is clean dry and intact, chest tube sites are clean dry and intact Objective - Vital Signs Vital signs: Vital Signs Temp 36.4 F L 10/06/20 12:50 Pulse 80 10/07/20 10:00 Resp 14 10/07/20 10:00 BP 116/73 10/06/20 06:30 Pulse Ox 97 10/07/20 10:00 Intake & Output 10/06/20 10/07/20 10/07/20 18:59 06:59 18:59 Intake Total 1563.239 994.889 461 Output Total 2140 860 110 Balance -576.761 134.889 351 Weight 78 kg Intake: IV 1486 977 461 ACETAMINOPHEN IV (For NPO 100 100 ) 1,000 mg In Empty Bag 1 bag @ 400 mls/hr IVPB Q6H [facility] Rx#:[id number] Albumin Human 5% 250 ml 750 250 In Empty Bag 1 bag @ 250 mls/hr IVPB Q1HR PRN Rx#: [id number] CO/CI 170 60 30 Lactated Ringers 1,000 ml 350 650 110 @ 20 mls/hr IV .Q24H [facility] Rx#:[id number] Pressure bags 63 117 21 ceFAZolin 2 gm In Sodium 50 50 50 Chloride 0.9% 50 ml @ 100 mls/hr IVPB Q8HR [facility] Rx# :[id number] Intake, IV Titration 77.239 17.889 Amount Insulin Regular 100 unit 7.441 In Sodium Chloride 0.9% 100 ml @ Per Protocol IV .Q0M [facility] Rx#:[id number] Norepinephrine 4 mg In 66.917 10.448 Sodium Chloride 0.9% 250 ml @ 0.05 MCG/KG/MIN 14. 783 mls/hr IV .[id number] [facility] Rx#:[id number] propofoL 500 mg In Empty 10.322 Bag 1 bag @ Titrate IV . Q0M [facility] Rx#:[id number] Output: Chest Tube Drainage 270 420 30 Left Pleural/Mediastinal 270 420 30 Urine 1120 440 80 Estimated Blood Loss 750 Other: Voiding Method Indwelling Catheter Indwelling Catheter ABP, PAP, CO, CI - Last Documented Arterial Blood Pressure 99/45 Pulmonary Artery Pressure 34/11 Cardiac Output 7.6 Cardiac Index 4.2 - Exam GENERAL EXAM: 45 year old white male, awake and alert, oriented 3, currently on 4 L of oxygen with pulse ox of 97%, sitting up in the recliner, comfortable in no apparent distress. HEAD: Normocephalic/atraumatic. EYES: Normal reaction of pupils, equal size. Conjunctiva pink, sclera white. NOSE: Clear with pink turbinates. THROAT: No erythema or exudates. NECK: No masses, no JVD, no thyroid enlargement, no adenopathy. CHEST: No chest wall deformity. Symmetrical expansion. Midsternal incision is clean dry and intact, 1 mediastinal and left pleural chest tubes of Y-connected together to the same Pleur-evac, no air leak, with 700 mL of thin sero- sanguinous output in the Pleur-evac LUNGS: Equal air entry with no crackles, wheeze, rhonchi or dullness. CVS: Regular rate and rhythm, normal S1 and S2, no gallops, no murmurs, no rubs ABDOMEN: Soft, nontender. No hepatosplenomegaly, normal bowel sounds, no g uarding or rigidity. EXTREMITIES: No clubbing, no edema, no cyanosis, 2+ pulses and upper and lower extremities. MUSCULOSKELETAL: Muscle strength and tone normal. SPINE: No scoliosis or deformity SKIN: No rashes CENTRAL NERVOUS SYSTEM: alert, oriented 3 No focal deficits, tone is normal in all 4 extremities. - Labs CBC & Chem 7: 10/07/20 03:55 10/07/20 03:55 Labs: Abnormal Lab Results - Last 24 Hours (Table) 09/30/20 10/06/20 10/06/20 Range/Units 09:00 08:35 09:08 RBC (4.30-5.90) m/uL Hgb (13.0-17.5) gm/dL Hct (39.0-53.0) % Plt Count (150-450) k/uL Neutrophils # (1.3-7.7) k/uL Lymphocytes # (1.0-4.8) k/uL INR (<1.2) APTT (22.0-30.0) sec ABG pH (7.35-7.45) ABG pCO2 (35-45) mmHg ABG pO2 >420 H 182 H (83-108) mmHg ABG HCO3 26 H (21-25) mmol/L ABG Total CO2 26 H 27 H (19-24) mmol/L ABG O2 Saturation 100.0 H 99.9 H (94-97) % ABG Hematocrit (34.0-46.0) % ABG Potassium (3.4-4.5) mmol/L ABG Ionized Calcium (4.5-5.3) mg/dL ABG Glucose 100 H (75-99) mg/dL Hemoglobin 11.1 L 11.1 L (13.0-17.5) gm/dL Chloride (98-107) mmol/L Glucose (74-99) mg/dL POC Glucose (mg/dL) (75-99) mg/dL Calcium (8.4-10.2) mg/dL Magnesium (1.6-2.3) mg/dL Alkaline Phosphatase (38-126) U/L Total Protein (6.3-8.2) g/dL Albumin (3.5-5.0) g/dL Arterial Blood Potassium (3.4-4.5) mmol/L Arterial Blood Glucose 100 H (75-99) mg/dL Crossmatch See Detail 10/06/20 10/06/20 10/06/20 Range/Units 09:50 10:22 10:50 RBC (4.30-5.90) m/uL Hgb (13.0-17.5) gm/dL Hct (39.0-53.0) % Plt Count (150-450) k/uL Neutrophils # (1.3-7.7) k/uL Lymphocytes # (1.0-4.8) k/uL INR (<1.2) APTT (22.0-30.0) sec ABG pH (7.35-7.45) ABG pCO2 (35-45) mmHg ABG pO2 305 H 187 H 342 H (83-108) mmHg ABG HCO3 (21-25) mmol/L ABG Total CO2 25 H 25 H 25 H (19-24) mmol/L ABG O2 Saturation 100.0 H 99.8 H 100.0 H (94-97) % ABG Hematocrit 26 L 27 L 27 L (34.0-46.0) % ABG Potassium 4.7 H 4.9 H 4.9 H (3.4-4.5) mmol/L ABG Ionized Calcium 4.3 L 4.3 L 4.3 L (4.5-5.3) mg/dL ABG Glucose 109 H 112 H (75-99) mg/dL Hemoglobin 8.6 L 8.8 L 8.6 L (13.0-17.5) gm/dL Chloride (98-107) mmol/L Glucose (74-99) mg/dL POC Glucose (mg/dL) (75-99) mg/dL Calcium (8.4-10.2) mg/dL Magnesium (1.6-2.3) mg/dL Alkaline Phosphatase (38-126) U/L Total Protein (6.3-8.2) g/dL Albumin (3.5-5.0) g/dL Arterial Blood Potassium 4.7 H 4.9 H 4.9 H (3.4-4.5) mmol/L Arterial Blood Glucose 109 H 112 H (75-99) mg/dL Crossmatch 10/06/20 10/06/20 10/06/20 Range/Units 12:55 12:55 12:55 RBC 3.10 L (4.30-5.90) m/uL Hgb 9.5 L D (13.0-17.5) gm/dL Hct 28.8 L (39.0-53.0) % Plt Count 96 L (150-450) k/uL Neutrophils # (1.3-7.7) k/uL Lymphocytes # 0.6 L (1.0-4.8) k/uL INR 1.2 H (<1.2) APTT 30.5 H (22.0-30.0) sec ABG pH (7.35-7.45) ABG pCO2 (35-45) mmHg ABG pO2 (83-108) mmHg ABG HCO3 (21-25) mmol/L ABG Total CO2 (19-24) mmol/L ABG O2 Saturation (94-97) % ABG Hematocrit (34.0-46.0) % ABG Potassium (3.4-4.5) mmol/L ABG Ionized Calcium (4.5-5.3) mg/dL ABG Glucose (75-99) mg/dL Hemoglobin (13.0-17.5) gm/dL Chloride 111 H (98-107) mmol/L Glucose (74-99) mg/dL POC Glucose (mg/dL) (75-99) mg/dL Calcium 8.2 L (8.4-10.2) mg/dL Magnesium 4.0 H (1.6-2.3) mg/dL Alkaline Phosphatase 26 L (38-126) U/L Total Protein 4.8 L (6.3-8.2) g/dL Albumin 3.1 L (3.5-5.0) g/dL Arterial Blood Potassium (3.4-4.5) mmol/L Arterial Blood Glucose (75-99) mg/dL Crossmatch 10/06/20 10/06/20 10/06/20 Range/Units 13:01 13:23 13:45 RBC (4.30-5.90) m/uL Hgb (13.0-17.5) gm/dL Hct (39.0-53.0) % Plt Count (150-450) k/uL Neutrophils # (1.3-7.7) k/uL Lymphocytes # (1.0-4.8) k/uL INR (<1.2) APTT (22.0-30.0) sec ABG pH 7.34 L 7.29 L (7.35-7.45) ABG pCO2 47 H (35-45) mmHg ABG pO2 67 L 238 H (83-108) mmHg ABG HCO3 (21-25) mmol/L ABG Total CO2 25 H (19-24) mmol/L ABG O2 Saturation 93.0 L 100.0 H (94-97) % ABG Hematocrit (34.0-46.0) % ABG Potassium (3.4-4.5) mmol/L ABG Ionized Calcium (4.5-5.3) mg/dL ABG Glucose (75-99) mg/dL Hemoglobin (13.0-17.5) gm/dL Chloride (98-107) mmol/L Glucose (74-99) mg/dL POC Glucose (mg/dL) 102 H (75-99) mg/dL Calcium (8.4-10.2) mg/dL Magnesium (1.6-2.3) mg/dL Alkaline Phosphatase (38-126) U/L Total Protein (6.3-8.2) g/dL Albumin (3.5-5.0) g/dL Arterial Blood Potassium (3.4-4.5) mmol/L Arterial Blood Glucose (75-99) mg/dL Crossmatch 10/06/20 10/06/20 10/06/20 Range/Units 14:28 15:09 15:33 RBC 2.95 L (4.30-5.90) m/uL Hgb 9.3 L (13.0-17.5) gm/dL Hct 27.2 L (39.0-53.0) % Plt Count 96 L (150-450) k/uL Neutrophils # (1.3-7.7) k/uL Lymphocytes # 0.6 L (1.0-4.8) k/uL INR (<1.2) APTT (22.0-30.0) sec ABG pH (7.35-7.45) ABG pCO2 (35-45) mmHg ABG pO2 (83-108) mmHg ABG HCO3 (21-25) mmol/L ABG Total CO2 (19-24) mmol/L ABG O2 Saturation (94-97) % ABG Hematocrit (34.0-46.0) % ABG Potassium (3.4-4.5) mmol/L ABG Ionized Calcium (4.5-5.3) mg/dL ABG Glucose (75-99) mg/dL Hemoglobin (13.0-17.5) gm/dL Chloride (98-107) mmol/L Glucose (74-99) mg/dL POC Glucose (mg/dL) 112 H 116 H (75-99) mg/dL Calcium (8.4-10.2) mg/dL Magnesium (1.6-2.3) mg/dL Alkaline Phosphatase (38-126) U/L Total Protein (6.3-8.2) g/dL Albumin (3.5-5.0) g/dL Arterial Blood Potassium (3.4-4.5) mmol/L Arterial Blood Glucose (75-99) mg/dL Crossmatch 10/06/20 10/06/20 10/06/20 Range/Units 16:03 17:10 18:15 RBC 2.88 L (4.30-5.90) m/uL Hgb 8.7 L (13.0-17.5) gm/dL Hct 26.7 L (39.0-53.0) % Plt Count 91 L (150-450) k/uL Neutrophils # 7.8 H (1.3-7.7) k/uL Lymphocytes # 0.3 L (1.0-4.8) k/uL INR (<1.2) APTT (22.0-30.0) sec ABG pH (7.35-7.45) ABG pCO2 (35-45) mmHg ABG pO2 (83-108) mmHg ABG HCO3 (21-25) mmol/L ABG Total CO2 (19-24) mmol/L ABG O2 Saturation (94-97) % ABG Hematocrit (34.0-46.0) % ABG Potassium (3.4-4.5) mmol/L ABG Ionized Calcium (4.5-5.3) mg/dL ABG Glucose (75-99) mg/dL Hemoglobin (13.0-17.5) gm/dL Chloride (98-107) mmol/L Glucose (74-99) mg/dL POC Glucose (mg/dL) 121 H 119 H (75-99) mg/dL Calcium (8.4-10.2) mg/dL Magnesium (1.6-2.3) mg/dL Alkaline Phosphatase (38-126) U/L Total Protein (6.3-8.2) g/dL Albumin (3.5-5.0) g/dL Arterial Blood Potassium (3.4-4.5) mmol/L Arterial Blood Glucose (75-99) mg/dL Crossmatch 10/06/20 10/06/20 10/06/20 Range/Units 18:16 18:16 19:25 RBC (4.30-5.90) m/uL Hgb (13.0-17.5) gm/dL Hct (39.0-53.0) % Plt Count (150-450) k/uL Neutrophils # (1.3-7.7) k/uL Lymphocytes # (1.0-4.8) k/uL INR (<1.2) APTT (22.0-30.0) sec ABG pH 7.32 L (7.35-7.45) ABG pCO2 (35-45) mmHg ABG pO2 (83-108) mmHg ABG HCO3 (21-25) mmol/L ABG Total CO2 (19-24) mmol/L ABG O2 Saturation 98.2 H (94-97) % ABG Hematocrit (34.0-46.0) % ABG Potassium (3.4-4.5) mmol/L ABG Ionized Calcium (4.5-5.3) mg/dL ABG Glucose (75-99) mg/dL Hemoglobin (13.0-17.5) gm/dL Chloride (98-107) mmol/L Glucose (74-99) mg/dL POC Glucose (mg/dL) 135 H 128 H (75-99) mg/dL Calcium (8.4-10.2) mg/dL Magnesium (1.6-2.3) mg/dL Alkaline Phosphatase (38-126) U/L Total Protein (6.3-8.2) g/dL Albumin (3.5-5.0) g/dL Arterial Blood Potassium (3.4-4.5) mmol/L Arterial Blood Glucose (75-99) mg/dL Crossmatch 10/06/20 10/06/20 10/06/20 Range/Units 20:06 20:54 21:49 RBC (4.30-5.90) m/uL Hgb (13.0-17.5) gm/dL Hct (39.0-53.0) % Plt Count (150-450) k/uL Neutrophils # (1.3-7.7) k/uL Lymphocytes # (1.0-4.8) k/uL INR (<1.2) APTT (22.0-30.0) sec ABG pH (7.35-7.45) ABG pCO2 (35-45) mmHg ABG pO2 (83-108) mmHg ABG HCO3 (21-25) mmol/L ABG Total CO2 (19-24) mmol/L ABG O2 Saturation (94-97) % ABG Hematocrit (34.0-46.0) % ABG Potassium (3.4-4.5) mmol/L ABG Ionized Calcium (4.5-5.3) mg/dL ABG Glucose (75-99) mg/dL Hemoglobin (13.0-17.5) gm/dL Chloride (98-107) mmol/L Glucose (74-99) mg/dL POC Glucose (mg/dL) 123 H 125 H 122 H (75-99) mg/dL Calcium (8.4-10.2) mg/dL Magnesium (1.6-2.3) mg/dL Alkaline Phosphatase (38-126) U/L Total Protein (6.3-8.2) g/dL Albumin (3.5-5.0) g/dL Arterial Blood Potassium (3.4-4.5) mmol/L Arterial Blood Glucose (75-99) mg/dL Crossmatch 10/06/20 10/06/20 10/07/20 Range/Units 22:52 23:55 00:56 RBC (4.30-5.90) m/uL Hgb (13.0-17.5) gm/dL Hct (39.0-53.0) % Plt Count (150-450) k/uL Neutrophils # (1.3-7.7) k/uL Lymphocytes # (1.0-4.8) k/uL INR (<1.2) APTT (22.0-30.0) sec ABG pH (7.35-7.45) ABG pCO2 (35-45) mmHg ABG pO2 (83-108) mmHg ABG HCO3 (21-25) mmol/L ABG Total CO2 (19-24) mmol/L ABG O2 Saturation (94-97) % ABG Hematocrit (34.0-46.0) % ABG Potassium (3.4-4.5) mmol/L ABG Ionized Calcium (4.5-5.3) mg/dL ABG Glucose (75-99) mg/dL Hemoglobin (13.0-17.5) gm/dL Chloride (98-107) mmol/L Glucose (74-99) mg/dL POC Glucose (mg/dL) 120 H 117 H 118 H (75-99) mg/dL Calcium (8.4-10.2) mg/dL Magnesium (1.6-2.3) mg/dL Alkaline Phosphatase (38-126) U/L Total Protein (6.3-8.2) g/dL Albumin (3.5-5.0) g/dL Arterial Blood Potassium (3.4-4.5) mmol/L Arterial Blood Glucose (75-99) mg/dL Crossmatch 10/07/20 10/07/20 10/07/20 Range/Units 01:59 02:52 03:49 RBC (4.30-5.90) m/uL Hgb (13.0-17.5) gm/dL Hct (39.0-53.0) % Plt Count (150-450) k/uL Neutrophils # (1.3-7.7) k/uL Lymphocytes # (1.0-4.8) k/uL INR (<1.2) APTT (22.0-30.0) sec ABG pH (7.35-7.45) ABG pCO2 (35-45) mmHg ABG pO2 (83-108) mmHg ABG HCO3 (21-25) mmol/L ABG Total CO2 (19-24) mmol/L ABG O2 Saturation (94-97) % ABG Hematocrit (34.0-46.0) % ABG Potassium (3.4-4.5) mmol/L ABG Ionized Calcium (4.5-5.3) mg/dL ABG Glucose (75-99) mg/dL Hemoglobin (13.0-17.5) gm/dL Chloride (98-107) mmol/L Glucose (74-99) mg/dL POC Glucose (mg/dL) 119 H 119 H 116 H (75-99) mg/dL Calcium (8.4-10.2) mg/dL Magnesium (1.6-2.3) mg/dL Alkaline Phosphatase (38-126) U/L Total Protein (6.3-8.2) g/dL Albumin (3.5-5.0) g/dL Arterial Blood Potassium (3.4-4.5) mmol/L Arterial Blood Glucose (75-99) mg/dL Crossmatch 10/07/20 10/07/20 10/07/20 Range/Units 03:55 03:55 04:51 RBC 2.66 L (4.30-5.90) m/uL Hgb 8.0 L (13.0-17.5) gm/dL Hct 24.4 L (39.0-53.0) % Plt Count 86 L (150-450) k/uL Neutrophils # (1.3-7.7) k/uL Lymphocytes # 0.3 L (1.0-4.8) k/uL INR (<1.2) APTT (22.0-30.0) sec ABG pH (7.35-7.45) ABG pCO2 (35-45) mmHg ABG pO2 (83-108) mmHg ABG HCO3 (21-25) mmol/L ABG Total CO2 (19-24) mmol/L ABG O2 Saturation (94-97) % ABG Hematocrit (34.0-46.0) % ABG Potassium (3.4-4.5) mmol/L ABG Ionized Calcium (4.5-5.3) mg/dL ABG Glucose (75-99) mg/dL Hemoglobin (13.0-17.5) gm/dL Chloride (98-107) mmol/L Glucose 109 H (74-99) mg/dL POC Glucose (mg/dL) 118 H (75-99) mg/dL Calcium 7.7 L (8.4-10.2) mg/dL Magnesium 2.6 H (1.6-2.3) mg/dL Alkaline Phosphatase 24 L (38-126) U/L Total Protein 4.8 L (6.3-8.2) g/dL Albumin 3.2 L (3.5-5.0) g/dL Arterial Blood Potassium (3.4-4.5) mmol/L Arterial Blood Glucose (75-99) mg/dL Crossmatch 10/07/20 Range/Units 06:42 RBC (4.30-5.90) m/uL Hgb (13.0-17.5) gm/dL Hct (39.0-53.0) % Plt Count (150-450) k/uL Neutrophils # (1.3-7.7) k/uL Lymphocytes # (1.0-4.8) k/uL INR (<1.2) APTT (22.0-30.0) sec ABG pH (7.35-7.45) ABG pCO2 (35-45) mmHg ABG pO2 (83-108) mmHg ABG HCO3 (21-25) mmol/L ABG Total CO2 (19-24) mmol/L ABG O2 Saturation (94-97) % ABG Hematocrit (34.0-46.0) % ABG Potassium (3.4-4.5) mmol/L ABG Ionized Calcium (4.5-5.3) mg/dL ABG Glucose (75-99) mg/dL Hemoglobin (13.0-17.5) gm/dL Chloride (98-107) mmol/L Glucose (74-99) mg/dL POC Glucose (mg/dL) 129 H (75-99) mg/dL Calcium (8.4-10.2) mg/dL Magnesium (1.6-2.3) mg/dL Alkaline Phosphatase (38-126) U/L Total Protein (6.3-8.2) g/dL Albumin (3.5-5.0) g/dL Arterial Blood Potassium (3.4-4.5) mmol/L Arterial Blood Glucose (75-99) mg/dL Crossmatch Assessment and Plan Plan: Assessment: #1. Aortic valve stenosis, congenital unicuspid valve, status post aortic valve replacement with a 23 mm mechanical valve, at the aortic ultrasonography, ligation of the left atrial appendage, postoperative day 1 #2. Routine post-operative ventilator management, patient was successfully w eaned and extubated on postoperative day 0 on 10/06/2020 within 5,5 h of OR exit time #3. Small to tiny left apical pneumothorax #4. Right mid to lower lung acute infiltrate/atelectasis rule out pneumonia, send Procalcitonin level. #5. Acute blood loss anemia, expected outcome of aortic valve replacementsurgery #6. History of mild intermittent bronchial asthma #7. History of a remote stroke #8. Nonsmoker, no history of EtOH use Plan: Continue encouraging deep breathing and coughing, continue breathing treatments 4 times a day and when necessary, maintain pain control, today's chest x-ray has been reviewed showing significant worsening of right middle and right lower lobe atelectasis/infiltrate, we'll send a pro-calcitonin level, doubt possibility of pneumonia, no leukocytosis, no fever chills, no cough. Continue pulmonary toileting. Continue to closely monitor in intensive care unit. Hemodynamically patient is stable, no acute events overnight. GI and DVT prophylaxis per CT surgery. I performed a history & physical examination of the patient and discussed their management with my nurse practitioner, Jacqueline Kruse. I reviewed the nurse practitioner's note and agree with the documented findings and plan of care. Lung sounds are positive for clear breath sounds. The findings and the impression was discussed with the patient. I attest to the documentation by the nurse practitioner. Time with Patient: Greater than 30
[2020-10-07 11:58] LABS: Glucose,Whole Blood 144 mg/dL (75-99)
[2020-10-07] MEDS: INSULIN ASPART (NovoLOG) 100 UNIT/ML VIAL SQ SCH ×3 (12:02→20:23)
[2020-10-07 14:17] VITALS: BMI 30.4
[2020-10-07 16:49] LABS: Glucose,Whole Blood 170 mg/dL (75-99)
[2020-10-07 20:11] LABS: Glucose,Whole Blood 195 mg/dL (75-99)
[2020-10-07] MEDS: SENNOSIDES-DOCUSATE SODIUM 1 EACH TAB PO SCH (20:23)
[2020-10-07] MEDS: MONTELUKAST 10 MG TAB PO SCH (20:23)
--- NOTE | 2020-10-07 23:51 | P.PN ---
Subjective This is a pleasant 45 years old male with past medical history of CVA/TIA, asthma. He was recently diagnosed with severe aortic stenosis and congenital unicuspid valve with cardiomyopathy and low ejection fraction about 35-40%. He underwent cardiac cath which was negative for significant coronary artery disease. was admitted under cardiothoracic surgery team and underwent aortic valve replacement, postoperatively patient was seen in the ICU he was still intubated and undergoing sedation holiday, he is showing positive mental signs with expected extubation today Vitas looks stable. Labs including CBC, BMP and liver enzymes are unremarkable except for mild anemia He is currently on aspirin 325 mg, Plavix, Lipitor 10/07/2020 Patient is a status post extubation yesterday, today he was sitting in the chair fully awake and oriented with minimal pain at the surgical site which is expected Desdemona Catheter was still in place with the expectation to be removed today. Chest tube is in place Patient with no dyspnea, no abdominal pain. Tolerates diet. He does not have bowel movement or passing gas. He is hemodynamically stable. He's on aspirin, Plavix, metoprolol. Also patient received antibiotics with cefazolin Active Medications Generic Name Dose Route Start Last Admin Trade Name Freq PRN Reason Stop Dose Admin Hydrocodone Bitart/Acetaminophen 2 each 10/06/20 22:52 10/07/20 14:39 Hydrocodone/Apap 5-325mg 1 Each Tab PO 2 each Q4HR PRN Administration Severe Pain Hydrocodone Bitart/Acetaminophen 1 each 10/06/20 22:52 Hydrocodone/Apap 5-325mg 1 Each Tab PO Q4HR PRN Moderate Pain Albuterol/Ipratropium 3 ml 10/06/20 11:14 10/06/20 15:37 Ipratropium-Albuterol 3 Ml Neb INHALATION 3 ml RT-Q2H PRN Administration Shortness Of Breath Or Wheezing Albuterol/Ipratropium 3 ml 10/06/20 16:53 10/07/20 15:50 Ipratropium-Albuterol 3 Ml Neb INHALATION 3 ml RT-QID MARIBELL Administration Aspirin 325 mg 10/07/20 09:00 10/07/20 08:37 Aspirin 325 Mg Tab PO 325 mg DAILY MARIBELL Administration Atorvastatin Calcium 40 mg 10/07/20 09:00 10/07/20 08:37 Atorvastatin 40 Mg Tab PO 40 mg DAILY MARIBELL Administration Benzocaine/Menthol 1 each 10/06/20 11:14 Benzocaine/Menthol Lozeng 1 Each Lozenge MUCOUS MEM Q2H PRN Sore Throat Bisacodyl 10 mg 10/07/20 09:00 Bisacodyl 10 Mg Supp RECTAL DAILY PRN Constipation Clopidogrel Bisulfate 75 mg 10/07/20 09:00 10/07/20 08:37 Clopidogrel 75 Mg Tab PO 75 mg DAILY MARIBELL Administration Heparin Sodium (Porcine) 5,000 unit 10/06/20 20:00 10/07/20 12:02 Heparin Sodium,Porcine 5,000 Unit/Ml 1 Ml Vial SQ 5,000 unit Q8H MARIBELL Administration Amiodarone HCl 150 mg/ 103 mls @ 618 mls/hr 10/06/20 11:14 Dextrose/Water IV .Q10M PRN A.FIB/FLUTTER Protocol Amiodarone HCl 360 mg/ 207.2 mls @ 34.533 mls/hr 10/06/20 11:14 Dextrose/Water IV .Q6H PRN A.FIB/FLUTTER Protocol 1 MG/MIN Amiodarone HCl 450 mg/ 250 mls @ 16.667 mls/hr 10/06/20 11:14 Dextrose/Water IV .Q15H PRN A.FIB/FLUTTER Protocol 0.5 MG/MIN Albumin Human 250 ml/ IV 250 mls @ 250 mls/hr 10/06/20 11:14 10/07/20 08:36 Solution IVPB 10/08/20 11:15 250 mls/hr Q1HR PRN Administration For Volume Calcium Gluconate 2 gm/ Sodium 120 mls @ 100 mls/hr 10/06/20 11:14 Chloride IVPB 10/10/20 11:15 ONCE PRN Ionized Calcium less than 4.4 Lactated Ringer's 1,000 mls @ 20 mls/hr 10/06/20 11:14 10/07/20 07:53 Lactated Ringers IV 20 mls/hr .Q24H MARIBELL Administration Insulin Aspart 0 unit 10/07/20 12:30 10/07/20 18:13 Insulin Aspart (Novolog) 100 Unit/Ml Vial SQ 2 unit ACHS MARIBELL Administration Protocol Ketorolac Tromethamine 15 mg 10/06/20 18:00 10/07/20 18:13 Ketorolac 15 Mg/Ml 1 Ml Vial IVP 10/09/20 17:59 15 mg Q6HR MARIBELL Administration Magnesium Hydroxide 2,400 mg 10/07/20 09:00 Magnesium Hydroxide 2,400 Mg/10 Ml Cup PO BID PRN Constipation Metoclopramide HCl 10 mg 10/06/20 11:14 Metoclopramide 5 Mg/Ml 2 Ml Vial IVP Q4H PRN Nausea And Vomiting Metoprolol Tartrate 12.5 mg 10/07/20 09:00 10/07/20 10:13 Metoprolol Tartrate 12.5 Mg Tab PO 12.5 mg BID MARIBELL Administration Miscellaneous Information 1 each 10/06/20 11:14 Potassium Replacement Protocol 1 Each Misc MISCELLANE DAILY PRN Per Protocol Protocol Miscellaneous Information 1 each 10/06/20 11:14 Magnesium Replacement Protocol 1 Each Misc MISCELLANE DAILY PRN Per Protocol Protocol Miscellaneous Information 1 each 10/06/20 11:14 Phosphorus Replacement Protoco 1 Each Misc MISCELLANE DAILY PRN Per Protocol Protocol Montelukast Sodium 10 mg 10/06/20 21:00 10/06/20 20:36 Montelukast 10 Mg Tab PO 10 mg HS MARIBELL Administration Ondansetron HCl 4 mg 10/06/20 11:14 Ondansetron 4 Mg/2 Ml Vial IVP Q6HR PRN Nausea And Vomiting Pantoprazole Sodium 40 mg 10/08/20 07:30 Pantoprazole 40 Mg Tablet PO AC-BRKFST MARIBELL Senna/Docusate Sodium 2 each 10/07/20 21:00 Sennosides-Docusate Sodium 1 Each Tab PO HS MARIBELL Sodium Chloride 10 ml 10/06/20 21:00 10/07/20 08:38 Sodium Chloride 0.9% Flush 10 Ml Syringe IV Not Given BID MARIBELL Objective - Vital Signs Vital signs: Vital Signs Temp 97.8 F 10/07/20 16:00 Pulse 78 10/07/20 18:00 Resp 15 10/07/20 18:00 BP 98/64 10/07/20 18:00 Pulse Ox 95 10/07/20 18:00 Intake & Output 10/06/20 10/07/20 10/07/20 18:59 06:59 18:59 Intake Total 1563.239 994.889 733 Output Total 2140 860 326 Balance -576.761 134.889 407 Weight 78 kg 78 kg Intake: IV 1486 977 733 ACETAMINOPHEN IV (For NPO 100 100 ) 1,000 mg In Empty Bag 1 bag @ 400 mls/hr IVPB Q6H MARIBELL Rx#:[id number] Albumin Human 5% 250 ml 750 250 In Empty Bag 1 bag @ 250 mls/hr IVPB Q1HR PRN Rx#: [id number] CO/CI 170 60 30 Lactated Ringers 1,000 ml 350 650 340 @ 20 mls/hr IV .Q24H MARIBELL Rx#:[id number] Pressure bags 63 117 63 ceFAZolin 2 gm In Sodium 50 50 50 Chloride 0.9% 50 ml @ 100 mls/hr IVPB Q8HR MARIBELL Rx# :[id number] Intake, IV Titration 77.239 17.889 Amount Insulin Regular 100 unit 7.441 In Sodium Chloride 0.9% 100 ml @ Per Protocol IV .Q0M MARIBELL Rx#:[id number] Norepinephrine 4 mg In 66.917 10.448 Sodium Chloride 0.9% 250 ml @ 0.05 MCG/KG/MIN 14. 783 mls/hr IV .[id number] MARIBELL Rx#:[id number] propofoL 500 mg In Empty 10.322 Bag 1 bag @ Titrate IV . Q0M MARIBELL Rx#:[id number] Output: Chest Tube Drainage 270 420 70 Left Pleural/Mediastinal 270 420 70 Urine 1120 440 256 Estimated Blood Loss 750 Other: Voiding Method Indwelling Catheter Indwelling Catheter Indwelling Catheter ABP, PAP, CO, CI - Last Documented Arterial Blood Pressure 85/48 Pulmonary Artery Pressure 34/11 Cardiac Output 7.6 Cardiac Index 4.2 - Exam GENERAL: The patient is alert and oriented x3, not in any acute distress. Well developed, well nourished. HEENT: Pupils are round and equally reacting to light. EOMI. No scleral icterus. No conjunctival pallor. Normocephalic, atraumatic. No pharyngeal erythema. No thyromegaly. CARDIOVASCULAR: S1 and S2 present. No murmurs, rubs, or gallops. PULMONARY: Chest is clear to auscultation, no wheezing or crackles. ABDOMEN: Soft, nontender, nondistended, normoactive bowel sounds. No palpable organomegaly. MUSCULOSKELETAL: No joint swelling or deformity. EXTREMITIES: No cyanosis, clubbing, or pedal edema. NEUROLOGICAL: Gross neurological examination did not reveal any focal deficits. SKIN: No rashes. no petechiae. - Labs CBC & Chem 7: 10/07/20 03:55 10/07/20 03:55 Labs: Abnormal Lab Results - Last 24 Hours (Table) 09/30/20 10/06/20 10/06/20 Range/Units 09:00 19:25 20:06 RBC (4.30-5.90) m/uL Hgb (13.0-17.5) gm/dL Hct (39.0-53.0) % Plt Count (150-450) k/uL Lymphocytes # (1.0-4.8) k/uL Glucose (74-99) mg/dL POC Glucose (mg/dL) 128 H 123 H (75-99) mg/dL Calcium (8.4-10.2) mg/dL Magnesium (1.6-2.3) mg/dL Alkaline Phosphatase (38-126) U/L Total Protein (6.3-8.2) g/dL Albumin (3.5-5.0) g/dL Crossmatch See Detail 10/06/20 10/06/20 10/06/20 Range/Units 20:54 21:49 22:52 RBC (4.30-5.90) m/uL Hgb (13.0-17.5) gm/dL Hct (39.0-53.0) % Plt Count (150-450) k/uL Lymphocytes # (1.0-4.8) k/uL Glucose (74-99) mg/dL POC Glucose (mg/dL) 125 H 122 H 120 H (75-99) mg/dL Calcium (8.4-10.2) mg/dL Magnesium (1.6-2.3) mg/dL Alkaline Phosphatase (38-126) U/L Total Protein (6.3-8.2) g/dL Albumin (3.5-5.0) g/dL Crossmatch 10/06/20 10/07/20 10/07/20 Range/Units 23:55 00:56 01:59 RBC (4.30-5.90) m/uL Hgb (13.0-17.5) gm/dL Hct (39.0-53.0) % Plt Count (150-450) k/uL Lymphocytes # (1.0-4.8) k/uL Glucose (74-99) mg/dL POC Glucose (mg/dL) 117 H 118 H 119 H (75-99) mg/dL Calcium (8.4-10.2) mg/dL Magnesium (1.6-2.3) mg/dL Alkaline Phosphatase (38-126) U/L Total Protein (6.3-8.2) g/dL Albumin (3.5-5.0) g/dL Crossmatch 10/07/20 10/07/20 10/07/20 Range/Units 02:52 03:49 03:55 RBC 2.66 L (4.30-5.90) m/uL Hgb 8.0 L (13.0-17.5) gm/dL Hct 24.4 L (39.0-53.0) % Plt Count 86 L (150-450) k/uL Lymphocytes # 0.3 L (1.0-4.8) k/uL Glucose (74-99) mg/dL POC Glucose (mg/dL) 119 H 116 H (75-99) mg/dL Calcium (8.4-10.2) mg/dL Magnesium (1.6-2.3) mg/dL Alkaline Phosphatase (38-126) U/L Total Protein (6.3-8.2) g/dL Albumin (3.5-5.0) g/dL Crossmatch 10/07/20 10/07/20 10/07/20 Range/Units 03:55 04:51 06:42 RBC (4.30-5.90) m/uL Hgb (13.0-17.5) gm/dL Hct (39.0-53.0) % Plt Count (150-450) k/uL Lymphocytes # (1.0-4.8) k/uL Glucose 109 H (74-99) mg/dL POC Glucose (mg/dL) 118 H 129 H (75-99) mg/dL Calcium 7.7 L (8.4-10.2) mg/dL Magnesium 2.6 H (1.6-2.3) mg/dL Alkaline Phosphatase 24 L (38-126) U/L Total Protein 4.8 L (6.3-8.2) g/dL Albumin 3.2 L (3.5-5.0) g/dL Crossmatch 10/07/20 10/07/20 Range/Units 11:56 16:47 RBC (4.30-5.90) m/uL Hgb (13.0-17.5) gm/dL Hct (39.0-53.0) % Plt Count (150-450) k/uL Lymphocytes # (1.0-4.8) k/uL Glucose (74-99) mg/dL POC Glucose (mg/dL) 144 H 170 H (75-99) mg/dL Calcium (8.4-10.2) mg/dL Magnesium (1.6-2.3) mg/dL Alkaline Phosphatase (38-126) U/L Total Protein (6.3-8.2) g/dL Albumin (3.5-5.0) g/dL Crossmatch Assessment and Plan Assessment: Severe aortic stenosis with unicuspid aortic valve status post aortic valve replacement Cardiomyopathy with ejection fraction of 35-40% Mild anemia History of asthma, not an active issue History of CVA/TIA Plan: This is a pleasant 45 years old male who presents with severe aortic stenosis status post aortic valve replacement. The primary cardiothoracic surgery team on the case, as well as pulmonary/critical care team. Continue with aspirin and Plavix. Postoperative management. Pain control. Monitor glucose. Continue with metoprolol Labs and medication were reviewed.. Continue same treatment. Continue with symptomatic treatment. Resume home medication. Monitor lytes and vitals. DVT and GI prophylaxis. Further recommendationsas per clinical course of the patient DVT prophylaxis: Subcutaneous heparin GI Prophylaxis: Ppi Prognosis is guarded
[2020-10-08 04:06] LABS: Basophils % (A) 0 %; Eosinophils # (A) 0.3 k/uL (0-0.7); Eosinophils % (A) 5 %; HCT 23.7 % (39.0-53.0); HGB 7.8 gm/dL (13.0-17.5); Lymphocytes # (A) 0.6 k/uL (1.0-4.8); Lymphocytes % (A) 7 %; MCH 30.4 pg (25.0-35.0); MCHC 32.9 g/dL (31.0-37.0); MCV 92.5 fL (80.0-100.0); Mean Platelet Volume 9.4; Monocytes # (A) 0.5 k/uL (0-1.0); Monocytes % (A) 7 %; Neutrophils # (A) 5.9 k/uL (1.3-7.7); Neutrophils % (A) 79 %; RBC 2.56 m/uL (4.30-5.90); RDW 14.7 % (11.5-15.5); WBC 7.4 k/uL (3.8-10.6)
[2020-10-08 04:10] LABS: Platelet Count 96 k/uL (150-450)
[2020-10-08 04:45] LABS: ALT 9 U/L (4-49); AST 30 U/L (17-59); African American GFR (CKD) >90 (>60 ml/min/1.73 sqM); Albumin 3.4 g/dL (3.5-5.0); Alkaline Phosphatase 25 U/L (38-126); Anion Gap 6 mmol/L; Blood Urea Nitrogen 19 mg/dL (9-20); Calcium 8.3 mg/dL (8.4-10.2); Carbon Dioxide 26 mmol/L (22-30); Chloride 101 mmol/L (98-107); Glucose 110 mg/dL (74-99); Non-African American GFR(CKD) >90 (>60 ml/min/1.73 sqM); Potassium 4.6 mmol/L (3.5-5.1); Sodium 133 mmol/L (137-145); Total Bilirubin 0.6 mg/dL (0.2-1.3); Total Protein 5.2 g/dL (6.3-8.2)
[2020-10-08] MEDS: KETOROLAC 15 MG/ML 1 ML VIAL IVP SCH ×3 (05:40→18:38)
[2020-10-08] MEDS: LACTATED RINGERS 1,000 ML IV SCH (05:40)
[2020-10-08] MEDS: HEPARIN SODIUM,PORCINE 5,000 UNIT/ML 1 ML VIAL SQ SCH ×3 (05:40→20:51)
[2020-10-08] MEDS: PANTOPRAZOLE 40 MG TABLET PO SCH (06:29)
[2020-10-08] MEDS: HYDROcodone/APAP 5-325MG 1 EACH TAB PO PRN ×2 (06:29→11:14)
[2020-10-08] MEDS: INSULIN ASPART (NovoLOG) 100 UNIT/ML VIAL SQ SCH ×4 (06:52→20:44)
--- NOTE | 2020-10-08 07:30 | XR ---
EXAMINATION TYPE: XR chest 1V portable DATE OF EXAM: 10/08/2020 Comparison: 10/07/2020 Clinical History: 45-year-old male Post Operative Cardiac Surgery Findings: Median sternotomy wires with prosthetic aortic valve. Mediastinal drain and epicardial pacer leads. S wan-Penny catheter is in the interval. The right IJ sheath remains in place. Left basilar chest tube d emonstrated. Prominent external artifact overlies the left apex. Unable to adequately assess for maria ge in pneumothorax. Attention on follow-up. I see right greater than left mid and lower lung opacitie s persist along with mild right effusion. Heart remains enlarged. Impression: 1. An external device/artifact is positioned over the left apex limiting visualization of any potenti al pneumothorax. Attention on follow-up. 2. Cardiac megaly and continued mid and lower lung opacities, right greater than left, and small righ t effusion.
[2020-10-08] MEDS: IPRATROPIUM-ALBUTEROL 3 ML NEB INHALATION SCH ×4 (08:22→20:28)
[2020-10-08] MEDS: ASPIRIN 325 MG TAB PO SCH (09:19)
[2020-10-08] MEDS: CLOPIDOGREL 75 MG TAB PO SCH (09:19)
[2020-10-08] MEDS: METOPROLOL TARTRATE 25 MG TAB PO SCH ×2 (09:19→20:51)
[2020-10-08] MEDS: ATORVASTATIN 40 MG TAB PO SCH (09:19)
--- NOTE | 2020-10-08 09:26 | P.PN ---
Subjective Progress Note Date: 10/08/20 Principal diagnosis: Aortic valve stenosis 45-year-old white male patient with known history of heart murmur since youth was diagnosed with severe bicuspid aortic valvular disease and subsequently underwent transesophageal echocardiogram and cardiac catheterization. Transesophageal echocardiogram showed severe aortic valvular stenosis, and unicuspid valve. His left ventricular systolic function showed an EF of 35-40%. Coronary cath was negative for any occlusive coronary artery disease. Medical history is positive for mild intermittent bronchial asthma, and a history of a mini stroke 20 years ago. Family history is positive for hypothyroidism and chronic kidney disease in his father and breast cancer in his mother. Today on 10/06/2020 patient presented for aortic valve replacement with a mechanical valve, epiaortic ultrasonography, and ligation of left atrial appendage with 35 mm AtriCure clip. Patient is seen in the postoperative period in the intensive care unit. Patient is sedated on mechanical ventilator, current vent settings are assist-control with a rate of 12, tidal volumes 450, FiO2 70% and PEEP of 8. His postoperative blood gases showed pO2 of 67, pCO2 43, pH of 7.34, and this was done on assist control of 12, 450, 100% and PEEP of 5 and subsequently his PEEP was increased up to 8 and FiO2 was dropped down to 70%. Follow-up blood gases showed pO2 of 238, pCO2 47, pH of 7.29, and the rate was increased to 16. Hemodynamically patient is stable, minimal output in the mediastinal and left pleural chest tube, 100 mL of single and is output in the Pleur-evac. Patient is on lactated Ringer's at a rate of 50 ML per hour, and difficulty reveal an is at 20 mics per minute, and levothyroid is at 1 mics per minute. No other drips. Blood pressure is 82/50, sinus mechanism, patient has epicardial wires connected to external pacemaker box with VVI backup rate of 50, CVP is 13, PA pressures 44/20, cardiac output is 4.2, cardiac index is 2.3. Postoperative blood work has been reviewed showing hemoglobin of 9.5, platelet count is 96, io nized 1.2, electrolytes and renal profile were unremarkable. Chest x-ray shows a mild infiltrate in the left base, ETT in the appropriate position, chest tubes have been noted. On 10/07/2020 patient seen in follow-up in intensive care unit, today is postop day #1, status post aortic valve replacement with a mechanical aortic valve. Patient was successfully weaned and extubated from the mechanical ventilator within 5-1/2 hours from the OR exit time on postoperative day 0 on 10/06/2020. This morning he seen sitting up in a chair, breathing comfortable, he is currently on 4 L of oxygen his pulse ox is 97%, he is breathing comfortably, he is working on incentive spirometer, he is achieving about 500-750 on his incentive spirometer, today's chest x-ray has been reviewed showing slight wors ening of left basilar atelectasis new small tiny left apical pneumothorax, significant worsening of the right mid to lower lung acute infiltrate and/or atelectasis with small to tiny right pleural effusion. Today's labs show no evidence of leukocytosis, patient has been afebrile, today his hemoglobin is 8, electrocerebral renal profile are unremarkable, has had good cardiac output and indices, last one this morning was 6.5 and 3.6 respectively, CVP is 12, patient got additional albumin this morning for low CVP, his [place]-Penny catheter has since been discontinued, he is in sinus mechanism, epicardial wires connected to an external pacemaker box with VVI backup, sinus rhythm with a rate of 89, not any pressor support, he is on lactated Ringer's a rate of 50 ML per hour. His mediastinal and left pleural chest tube has a total of 700 mL of serosanguineous then output since surgery yesterday, his pain is fairly well controlled, no altered mentation, he is responding to questions appropriately, midsternal incision is clean dry and intact, chest tube sites are clean dry and intact On 10/08/2020 patient seen in follow-up in intensive care unit, his postoperative day 2, status post aortic valve replacement with mechanical valve, patient is awake and alert, oriented 2, he is up in a chair, breathing comfortably, he is on 2 L of oxygen with a pulse ox of 97%, his incentive spirometer effort is still suboptimal, patient is a achieving 500-750 on the incentive spirometer. His been afebrile, hemodynamically has been stable. His [place]-Penny catheter was removed yesterday, Cordis remains in place, he is receiving lactated Ringer's at a rate of 30 and a per hour, no other drips. He is in sinus mechanism with a rate of 87 BPM, his mediastinal and left pleural chest tubes remain in place, there connected to the same Pleur-evac, and there has been 300 mL of thin serosanguineous output in last 24 hours, no air leak, today's chest x-ray showed megaly, and mid and lower lung opacities right greater than left and small right pleural effusion. Today's labs have been reviewed, white blood cell count is 7.4, hemoglobin is 7.8, sodium is 133, the rest of the electrolytes and renal profile were within normal limits, pro- calcitonin level came back low at 0.20. Patient has had no fever or chills no leukocytosis. No cough, or dyspnea. Patient has been ambulating, tolerating activity well. Objective - Vital Signs Vital signs: Vital Signs Temp 97.8 F 10/08/20 08:00 Pulse 73 10/08/20 09:00 Resp 20 10/08/20 09:00 BP 92/61 10/08/20 09:00 Pulse Ox 97 10/08/20 09:00 Intake & Output 10/07/20 10/08/20 10/08/20 18:59 06:59 18:59 Intake Total 733 886 129 Output Total 326 320 10 Balance 407 566 119 Weight 78 kg 80.3 kg Intake: IV 733 386 129 25% albumin 50 Albumin Human 5% 250 ml 250 In Empty Bag 1 bag @ 250 mls/hr IVPB Q1HR PRN Rx#: [id number] CO/CI 30 Lactated Ringers 1,000 ml 340 350 70 @ 20 mls/hr IV .Q24H MARIBELL Rx#:[id number] Pressure bags 63 36 9 ceFAZolin 2 gm In Sodium 50 Chloride 0.9% 50 ml @ 100 mls/hr IVPB Q8HR [facility] Rx# :[id number] Oral 500 Output: Chest Tube Drainage 70 90 10 Left Pleural/Mediastinal 70 90 10 Urine 256 230 0 Other: Voiding Method Indwelling Catheter Indwelling Catheter ABP, PAP, CO, CI - Last Documented Arterial Blood Pressure 85/48 Pulmonary Artery Pressure 34/11 Cardiac Output 7.6 Cardiac Index 4.2 - Exam GENERAL EXAM: 45 year old white male, awake and alert, oriented 3, currently on 2 L of oxygen with pulse ox of 97%, sitting up in the recliner, comfortable in no apparent distress. HEAD: Normocephalic/atraumatic. EYES: Normal reaction of pupils, equal size. Conjunctiva pink, sclera white. NOSE: Clear with pink turbinates. THROAT: No erythema or exudates. NECK: No masses, no JVD, no thyroid enlargement, no adenopathy. CHEST: No chest wall deformity. Symmetrical expansion. Midsternal incision is clean dry and intact, 1 mediastinal and left pleural chest tubes of Y-connected together to the same Pleur-evac, no air leak, with 700 mL of thin sero- sanguinous output in the Pleur-evac LUNGS: Equal air entry with no crackles, wheeze, rhonchi or dullness. CVS: Regular rate and rhythm, normal S1 and S2, no gallops, no murmurs, no rubs ABDOMEN: Soft, nontender. No hepatosplenomegaly, normal bowel sounds, no guarding or rigidity. EXTREMITIES: No clubbing, no edema, no cyanosis, 2+ pulses and upper and lower extremities. MUSCULOSKELETAL: Muscle strength and tone normal. SPINE: No scoliosis or deformity SKIN: No rashes CENTRAL NERVOUS SYSTEM: alert, oriented 3 No focal deficits, tone is normal in all 4 extremities. - Labs CBC & Chem 7: 10/08/20 03:55 10/08/20 03:55 Labs: Abnormal Lab Results - Last 24 Hours (Table) 10/07/20 10/07/20 10/07/20 Range/Units 05:00 11:56 16:47 RBC (4.30-5.90) m/uL Hgb (13.0-17.5) gm/dL Hct (39.0-53.0) % Plt Count (150-450) k/uL Lymphocytes # (1.0-4.8) k/uL Sodium (137-145) mmol/L Glucose (74-99) mg/dL POC Glucose (mg/dL) 144 H 170 H (75-99) mg/dL Calcium (8.4-10.2) mg/dL Alkaline Phosphatase (38-126) U/L Total Protein (6.3-8.2) g/dL Albumin (3.5-5.0) g/dL Procalcitonin 0.20 H (0.02-0.09) ng/mL 10/07/20 10/08/20 10/08/20 Range/Units 20:09 03:55 03:55 RBC 2.56 L (4.30-5.90) m/uL Hgb 7.8 L (13.0-17.5) gm/dL Hct 23.7 L (39.0-53.0) % Plt Count 96 L (150-450) k/uL Lymphocytes # 0.6 L (1.0-4.8) k/uL Sodium 133 L (137-145) mmol/L Glucose 110 H (74-99) mg/dL POC Glucose (mg/dL) 195 H (75-99) mg/dL Calcium 8.3 L (8.4-10.2) mg/dL Alkaline Phosphatase 25 L (38-126) U/L Total Protein 5.2 L (6.3-8.2) g/dL Albumin 3.4 L (3.5-5.0) g/dL Procalcitonin (0.02-0.09) ng/mL Assessment and Plan Plan: Assessment: #1. Aortic valve stenosis, congenital unicuspid valve, status post aortic valve replacement with a 23 mm mechanical valve, at the aortic ultrasonography, ligation of the left atrial appendage, postoperative day 2 #2. Routine post-operative ventilator management, patient was successfully weaned and extubated on postoperative day 0 on 10/06/2020 within 5,5 h of OR exit time #3. Small to tiny left apical pneumothorax #4. Right mid to lower lung acute infiltrate/atelectasis rule out pneumonia, pro-calcitonin level came back low at 0.20 #5. Acute blood loss anemia, expected outcome of aortic valve replacementsurgery #6. History of mild intermittent bronchial asthma #7. History of a remote stroke #8. Nonsmoker, no history of EtOH use Plan: Continue encouraging deep breathing and coughing, ambulation. Hemodynamically patient is stable, he is not on any drips, he remains in sinus mechanism, no arrhythmias. Today's chest x-ray has been reviewed still showing bibasilar densities, and small right-sided pleural effusion, patient has had no fever chills, no worsening dyspnea hypoxia no cough, pro-calcitonin level is low, possibility of pneumonia is low. GI and DVT prophylaxis per CT surgery, initiation of anticoagulation per CT surgery. We'll continue to closely follow I performed a history & physical examination of the patient and discussed their management with my nurse practitioner, Jacqueline Kruse. I reviewed the nurse practitioner's note and agree with the documented findings and plan of care. Lung sounds are positive for clear breath sounds. The findings and the impression was discussed with the patient. I attest to the documentation by the nurse practitioner. Time with Patient: Greater than 30
--- NOTE | 2020-10-08 09:55 | PN ---
PROGRESS NOTE Mr. Mejia is a 45-year-old male who has underwent aortic valve replacement for unicuspid aortic stenosis. He is feeling better today, sitting up in the chair. He denies any chest pain. He is in sinus mechanism using his significant spirometry. He is on no vasopressors. Hemodynamically, he is stable. He continues to be at this time on aspirin once a day, Lipitor 40 mg daily, Plavix 75 mg daily, metoprolol tartrate 12.5 mg twice a day. PHYSICAL EXAMINATION: Blood pressure 104/70 with the heart rate in 70s. LUNGS: With few crackles at the bases. HEART: Regular rate and rhythm. S1, S2 with soft systolic murmur. ABDOMEN: Soft, nontender. EXTREMITIES: No edema. LAB DATA: Lab data revealed BUN and creatinine 19 and 0.89. Potassium 4.6. Hemoglobin of 7.8. IMPRESSION: 1. Status post aortic valve replacement for unicuspid symptomatic severe aortic stenosis. 2. History of hyperlipidemia. RECOMMENDATION: We will continue incentive spirometry and continue to increase his level of activity. Hopefully remove his chest tube and initiate anticoagulation. MMODL / IJN: [id number] /
[2020-10-08 11:36] LABS: Glucose,Whole Blood 105 mg/dL (75-99)
--- NOTE | 2020-10-08 12:36 | US ---
EXAMINATION TYPE: US chest DATE OF EXAM: 10/08/2020 COMPARISON: NONE CLINICAL HISTORY: evaulate for pleural effusion. Pleural effusion TECHNIQUE: Targeted ultrasound of the posterior lower right hemithorax EXAM MEASUREMENTS: Right Pleural Effusion pocket size: 7.7 cm Right skin surface to fluid distance: 2.2 cm Right side marked for possible thoracentesis outside the dept. Lung tissue visualized 3.3cm in fluid pocket. Pulmonologists are able to review the images in the patient?s EMR. IMPRESSIONS: Moderate right pleural effusion
--- NOTE | 2020-10-08 12:52 | P.PN ---
Subjective This is a pleasant 45 years old male with past medical history of CVA/TIA, asthma. He was recently diagnosed with severe aortic stenosis and congenital unicuspid valve with cardiomyopathy and low ejection fraction about 35-40%. He underwent cardiac cath which was negative for significant coronary artery disease. was admitted under cardiothoracic surgery team and underwent aortic valve replacement, postoperatively patient was seen in the ICU he was still intubated and undergoing sedation holiday, he is showing positive mental signs with expected extubation today Vitas looks stable. Labs including CBC, BMP and liver enzymes are unremarkable except for mild anemia He is currently on aspirin 325 mg, Plavix, Lipitor 10/07/2020 Patient is a status post extubation yesterday, today he was sitting in the chair fully awake and oriented with minimal pain at the surgical site which is expected [place] Catheter was still in place with the expectation to be removed today. Chest tube is in place Patient with no dyspnea, no abdominal pain. Tolerates diet. He does not have bowel movement or passing gas. He is hemodynamically stable. He's on aspirin, Plavix, metoprolol. Also patient received antibiotics with cefazolin 10/08/20 The patient sitting in chair feels even better than yesterday with no chest pain or dyspnea or any other complaint. Blood pressure is low normal. He is slightly tachypneic. Afebrile. CBC and BMP are unremarkable except for mild low sodium at 133. Glucose controlled. Patient denies history of diabetes Chest ultrasound showing 7.7 by pleural effusion Remains on aspirin, Plavix, metoprolol, Lipitor, amiodarone, subcu heparin. On warfarin was started per Objective - Vital Signs Vital signs: Vital Signs Temp 97.8 F 10/08/20 08:00 Pulse 76 10/08/20 11:00 Resp 23 10/08/20 11:00 BP 93/64 10/08/20 11:00 Pulse Ox 97 10/08/20 11:00 Intake & Output 10/07/20 10/08/20 10/08/20 18:59 06:59 18:59 Intake Total 733 886 125 Output Total 326 320 40 Balance 407 566 85 Weight 78 kg 80.3 kg Intake: IV 733 386 125 Albumin Human 5% 250 ml 250 In Empty Bag 1 bag @ 250 mls/hr IVPB Q1HR PRN Rx#: [id number] CO/CI 30 Lactated Ringers 1,000 ml 340 350 110 @ 20 mls/hr IV .Q24H [facility] Rx#:[id number] Pressure bags 63 36 15 ceFAZolin 2 gm In Sodium 50 Chloride 0.9% 50 ml @ 100 mls/hr IVPB Q8HR [facility] Rx# :[id number] Oral 500 Output: Chest Tube Drainage 70 90 40 Left Pleural/Mediastinal 70 90 40 Urine 256 230 0 Other: Voiding Method Indwelling Catheter Indwelling Catheter Indwelling Catheter ABP, PAP, CO, CI - Last Documented Arterial Blood Pressure 85/48 Pulmonary Artery Pressure 34/11 Cardiac Output 7.6 Cardiac Index 4.2 - Exam GENERAL: The patient is alert and oriented x3, not in any acute distress. Well developed, well nourished. HEENT: Pupils are round and equally reacting to light. EOMI. No scleral icterus. No conjunctival pallor. Normocephalic, atraumatic. No pharyngeal erythema. No thyromegaly. CARDIOVASCULAR: S1 and S2 present. No murmurs, rubs, or gallops. PULMONARY: Chest is clear to auscultation, no wheezing or crackles. ABDOMEN: Soft, nontender, nondistended, normoactive bowel sounds. No palpable organomegaly. MUSCULOSKELETAL: No joint swelling or deformity. EXTREMITIES: No cyanosis, clubbing, or pedal edema. NEUROLOGICAL: Gross neurological examination did not reveal any focal deficits. SKIN: No rashes. no petechiae. - Labs CBC & Chem 7: 10/08/20 03:55 10/08/20 03:55 Labs: Abnormal Lab Results - Last 24 Hours (Table) 10/07/20 10/07/20 10/07/20 Range/Units 05:00 16:47 20:09 RBC (4.30-5.90) m/uL Hgb (13.0-17.5) gm/dL Hct (39.0-53.0) % Plt Count (150-450) k/uL Lymphocytes # (1.0-4.8) k/uL Sodium (137-145) mmol/L Glucose (74-99) mg/dL POC Glucose (mg/dL) 170 H 195 H (75-99) mg/dL Calcium (8.4-10.2) mg/dL Alkaline Phosphatase (38-126) U/L Total Protein (6.3-8.2) g/dL Albumin (3.5-5.0) g/dL Procalcitonin 0.20 H (0.02-0.09) ng/mL 10/08/20 10/08/20 10/08/20 Range/Units 03:55 03:55 11:34 RBC 2.56 L (4.30-5.90) m/uL Hgb 7.8 L (13.0-17.5) gm/dL Hct 23.7 L (39.0-53.0) % Plt Count 96 L (150-450) k/uL Lymphocytes # 0.6 L (1.0-4.8) k/uL Sodium 133 L (137-145) mmol/L Glucose 110 H (74-99) mg/dL POC Glucose (mg/dL) 105 H (75-99) mg/dL Calcium 8.3 L (8.4-10.2) mg/dL Alkaline Phosphatase 25 L (38-126) U/L Total Protein 5.2 L (6.3-8.2) g/dL Albumin 3.4 L (3.5-5.0) g/dL Procalcitonin (0.02-0.09) ng/mL Assessment and Plan Assessment: Severe aortic stenosis with unicuspid aortic valve status post aortic valve replacement Cardiomyopathy with ejection fraction of 35-40% Mild anemia History of asthma, not an active issue History of CVA/TIA Plan: This is a pleasant 45 years old male who presents with severe aortic stenosis status post aortic valve replacement. The primary cardiothoracic surgery team on the case, as well as pulmonary/critical care team. Continue with aspirin and Plavix. Postoperative management. Pain control. Monitor glucose. Continue with metoprolol Labs and medication were reviewed.. Continue same treatment. Continue with symptomatic treatment. Resume home medication. Monitor lytes and vitals. DVT and GI prophylaxis. Further recommendationsas per clinical course of the patient DVT prophylaxis: Subcutaneous heparin, and warfarin GI Prophylaxis: Ppi
--- NOTE | 2020-10-08 13:35 | XR ---
EXAMINATION TYPE: XR chest 1V DATE OF EXAM: 10/08/2020 COMPARISON: Prior chest x-ray same dated earlier time HISTORY: Postprocedural, status post thoracentesis TECHNIQUE: Single frontal view of the chest is obtained. FINDINGS: There is improved aeration in the right hemithorax. Residual patchy basilar density is not ed. No other significant interval change. IMPRESSION: No evident complication status post right thoracentesis. Basilar atelectasis, correlate to exclude pneumonia.
[2020-10-08] MEDS ORDERED: ALBUMIN HUMAN 5% 250 ML IVPB ONE ×2 (13:43→13:46)
--- NOTE | 2020-10-08 13:58 | P.PN ---
Subjective Progress Note Date: 10/08/20 Principal diagnosis: Aortic stenosis, congenital unicuspid valve, preserved left ventricular function. Past medical history significant for hyperlipidemia, asthma with moderate airway obstruction as well as restriction with preoperative FEV1 64% of predicted, remote TIA history. POD #2 aortic valve replacement with 23 mm On-X mechanical valve, epi-aortic ultrasonography, ligation of the left atrial appendage with a 35 mm AtriCure clip. Postoperative acute blood loss anemia, expected outcome secondary to hemodilution and cardiopulmonary bypass pump. Postoperative right pleural effusion, unexpected but potential outcome of surgery requiring right thoracentesis. Status post Right thoracentesis today performed by Dr. Camacho today 10/08/2020 The patient was seen today in follow-up 10/08/2020 at his bedside in the intensive care unit. Currently he is sitting up to the bedside chair, is awake, alert and oriented 3. Denies any complaints of pain or shortness of breath at this time. Oxygen saturations are 96% on 2 L nasal cannula and he is achieving 750 mL on his incentive spirometry with encouragement. Remains hemodynamically stable and is currently on no inotropic or pressor support. Right IJ cordis remains in place with current CVP pressure 12 mmHg. Urine output in the last 8 hours has been marginal with 150 mL output. Mediastinal and left pleural chest tubes remain in place to low continuous wall suction -20 cm H2O. No air leak is present. Draining thin serosanguineous drainage with 70 mL output last 8 hours and 250 mL output in the last 24 hours. The patient reports that he feels much improved today from yesterday. Objective - Vital Signs Vital signs: Vital Signs Temp 97.8 F 10/08/20 12:00 Pulse 77 10/08/20 13:00 Resp 23 10/08/20 13:00 BP 96/54 10/08/20 13:00 Pulse Ox 99 10/08/20 13:00 Intake & Output 10/07/20 10/08/20 10/08/20 18:59 06:59 18:59 Intake Total 733 886 171 Output Total 326 320 50 Balance 407 566 121 Weight 78 kg 80.3 kg Intake: IV 733 386 171 Albumin Human 5% 250 ml 250 In Empty Bag 1 bag @ 250 mls/hr IVPB Q1HR PRN Rx#: [id number] CO/CI 30 Lactated Ringers 1,000 ml 340 350 150 @ 20 mls/hr IV .Q24H [facility] Rx#:[id number] Pressure bags 63 36 21 ceFAZolin 2 gm In Sodium 50 Chloride 0.9% 50 ml @ 100 mls/hr IVPB Q8HR [facility] Rx# :[id number] Oral 500 Output: Chest Tube Drainage 70 90 50 Left Pleural/Mediastinal 70 90 50 Urine 256 230 0 Other: Voiding Method Indwelling Catheter Indwelling Catheter Indwelling Catheter ABP, PAP, CO, CI - Last Documented Arterial Blood Pressure 85/48 Pulmonary Artery Pressure 34/11 Cardiac Output 7.6 Cardiac Index 4.2 - Constitutional General appearance: Present: cooperative, no acute distress, obese - EENT Eyes: Present: normal appearance. Absent: scleral icterus ENT: Present: hearing grossly normal - Neck Details: Neck is supple, no JVD, right IJ Cordis in place with continuous CVP monitoring. - Respiratory Details: Lung sounds are essentially clear throughout, diminished to his bilateral bases right greater than left. Respirations are symmetrical and nonlabored. Oxygen saturation are 96% on 2 L nasal cannula. Achieving 750 mL on his incentive spirometry with much encouragement. Mediastinal and left pleural chest tubes remain in place to low continuous wall suction -20 cm H2O. No air leak is present. Draining thin serosanguineous drainage with 70 mL output in the last 8 hours and 250 mL output in the last 24 hours. - Cardiovascular Details: Regular rhythm and rate. S1 and S2 present, positive valvular click, negative for S3, gallop or murmur. Sternum is stable. Heart hugger is in place and he is demonstrating appropriate use. Bedside telemetry showing normal sinus rhythm heart rate 92 BPM. No edema present. Knee-high RAISSA hose and sequential com pression devices in place to his bilateral lower extremities. Right IJ Cordis in place with continuous CVP monitoring, current CVP pressure 12 mmHg. atrial and ventricular epicardial pacemaker wires in place and grounded. - Gastrointestinal Gastrointestinal Comment(s): Abdomen is soft, nontender and nondistended. Active bowel sounds present all 4 abdominal quadrants. No guarding or rigidity. Tolerating oral intake. Passing flatus. - Genitourinary Genitourinary Comment(s): Lainez catheter was in place for accurate I's and O's. Removed early this morning. Marginal urine output in the last 8 hours with 150 mL output. - Integumentary Integumentary Comment(s): Skin is warm and dry. No clubbing or cyanosis is present. Midline sternal incision is clean, dry and approximated. No drainage or redness is present. Gauze dressing is clean, dry and place. - Neurologic Neurologic: Present: CNII-XII intact. Absent: focal deficits - Musculoskeletal Musculoskeletal: Present: gait normal, generalized weakness, strength equal bilaterally - Psychiatric Psychiatric: Present: A&O x's 3, appropriate affect, intact judgment & insight - Allied health notes Allied health notes reviewed: nursing - Labs CBC & Chem 7: 10/08/20 03:55 10/08/20 03:55 Labs: Abnormal Lab Results - Last 24 Hours (Table) 10/07/20 10/07/20 10/07/20 Range/Units 05:00 16:47 20:09 RBC (4.30-5.90) m/uL Hgb (13.0-17.5) gm/dL Hct (39.0-53.0) % Plt Count (150-450) k/uL Lymphocytes # (1.0-4.8) k/uL Sodium (137-145) mmol/L Glucose (74-99) mg/dL POC Glucose (mg/dL) 170 H 195 H (75-99) mg/dL Calcium (8.4-10.2) mg/dL Alkaline Phosphatase (38-126) U/L Total Protein (6.3-8.2) g/dL Albumin (3.5-5.0) g/dL Procalcitonin 0.20 H (0.02-0.09) ng/mL 10/08/20 10/08/20 10/08/20 Range/Units 03:55 03:55 11:34 RBC 2.56 L (4.30-5.90) m/uL Hgb 7.8 L (13.0-17.5) gm/dL Hct 23.7 L (39.0-53.0) % Plt Count 96 L (150-450) k/uL Lymphocytes # 0.6 L (1.0-4.8) k/uL Sodium 133 L (137-145) mmol/L Glucose 110 H (74-99) mg/dL POC Glucose (mg/dL) 105 H (75-99) mg/dL Calcium 8.3 L (8.4-10.2) mg/dL Alkaline Phosphatase 25 L (38-126) U/L Total Protein 5.2 L (6.3-8.2) g/dL Albumin 3.4 L (3.5-5.0) g/dL Procalcitonin (0.02-0.09) ng/mL - Imaging and Cardiology Chest x-ray: report reviewed, image reviewed Assessment and Plan Assessment: 1. Aortic stenosis, congenital unicuspid valve, status post mechanical aortic valve replacement 2. Preserved left ventricular function, preoperative EF 55-60% 3. History of hyperlipidemia, treated, cholesterol 110, LDL 44 4. Asthma, stable with moderate airway obstruction as well as restriction, preoperative FEV1 64% of predicted 5. Remote TIA history 6. Postoperative acute blood loss anemia, expected 7. Postoperative right pleural effusion, unexpected Plan: 1. Continue low-dose aspirin, statin, and beta bowen. Will increase his metoprolol tartrate 25 mg by mouth twice a day. 2. Coumadin 7.5 mg by mouth 1 today. Goal INR for first 3 months 2-3, after 3 months goal INR 1.5-2 3. Wean O2 as tolerated. Encourage incentive spirometry use 10 times every hour while awake. Bronchodilators per pulmonology/critical care management. 4. Increase activity, ambulate as tolerated. PT/OT/cardiac rehab following. 5. Will monitor daily labs and chest x-rays. Electrolyte replacement per protocol. No transfusion at this point. 6. Pain control with current when necessary orders. 7. Insulin management per primary care service. Patient is not diabetic, preoperative hemoglobin A1c 5.4%. 8. We will discontinue his mediastinal and right pleural chest tubes. 9. The patient atrial and ventricular epicardial pacemaker wires were removed without incident at 10:35 AM this morning. He was on bed rest for 1 hour post pacemaker wire removal. 10. Strict accurate intake and output. Daily weights using standing scale. 11. Discontinue Cordis. 12. Discontinue Plavix. Once Coumadin is therapeutic we will discontinue the subcu heparin. 13. Ultrasound the right chest with markings for thoracentesis of the right chest for pleural effusion. 14. Lainez catheter was discontinued this morning, May bladder scan every 6 hours and when necessary, if greater than 300 mL of urine May straight cath. 15. More recommendations to follow based on patient's progress. Time with Patient: Greater than 30
[2020-10-08] MEDS ORDERED: ALBUMIN HUMAN 5% 500 ML in EMPTY BAG 1 BAG IVPB ONE (14:30)
[2020-10-08 16:48] LABS: Glucose,Whole Blood 129 mg/dL (75-99)
[2020-10-08] MEDS: ASCORBIC ACID 500 MG TAB PO SCH (16:55)
[2020-10-08] MEDS: FERROUS SULFATE 325 MG TAB PO SCH (16:55)
[2020-10-08] MEDS ORDERED: WARFARIN 7.5 MG TAB PO ONE (18:00)
[2020-10-08 19:01] LABS: HCT 24.3 % (39.0-53.0); HGB 7.9 gm/dL (13.0-17.5); Hypochromasia Slight; MCHC 32.5 g/dL (31.0-37.0); MCV 95.2 fL (80.0-100.0); Mean Platelet Volume 9.6; Platelet Count 109 k/uL (150-450); RBC 2.55 m/uL (4.30-5.90); RDW 14.5 % (11.5-15.5); WBC 7.9 k/uL (3.8-10.6)
[2020-10-08 19:16] LABS: ALT 12 U/L (4-49); AST 33 U/L (17-59); African American GFR (CKD) >90 (>60 ml/min/1.73 sqM); Albumin 3.8 g/dL (3.5-5.0); Alkaline Phosphatase 31 U/L (38-126); Anion Gap 9 mmol/L; Blood Urea Nitrogen 21 mg/dL (9-20); Calcium 8.8 mg/dL (8.4-10.2); Carbon Dioxide 22 mmol/L (22-30); Chloride 100 mmol/L (98-107); Glucose 126 mg/dL (74-99); Non-African American GFR(CKD) >90 (>60 ml/min/1.73 sqM); Potassium 4.7 mmol/L (3.5-5.1); Sodium 131 mmol/L (137-145); Total Bilirubin 0.7 mg/dL (0.2-1.3); Total Protein 5.7 g/dL (6.3-8.2)
--- NOTE | 2020-10-08 19:52 | PCN ---
PROCEDURE NOTE PROCEDURE: Right-sided thoracentesis. PREOPERATIVE DIAGNOSIS: Right pleural effusion. POSTOPERATIVE DIAGNOSIS: Right pleural effusion. OPERATORS: 1. Dr. Bro Camacho. 2. Dr. Willa Kruse. PROCEDURE DESCRIPTION: A time-out was completed verifying correct patient, procedure, site, positioning , and implant (s) or special equipment if applicable. The posterior chest was marked by ultrasound and appropriate fluid pocket was identified and marked. Patient was positioned, prepped and draped in usual sterile fashion. Lidocaine was used to anesthetize the area. A thoracentesis catheter was introduced into the pleural space and 650 to 700 mL of bloody effusion was removed from the right pleural space. Blood loss was none. A chest x-ray was ordered to evaluate for pneumothorax. Total Fluid Removed: 650 to 700 mL Color of Fluid: Bloody effusion Fluid will not be sent for analysis. Patient tolerated the procedure well and there were no immediate complications. Dr. Villarreal was in the room during the procedure. No additional recommendations were made. The fluid will not be sent for analysis. The catheter was removed. A bandage was placed over the site of the thoracentesis. MMODL / IJN: [id number] /
[2020-10-08 20:44] LABS: Glucose,Whole Blood 117 mg/dL (75-99)
[2020-10-08] MEDS: SENNOSIDES-DOCUSATE SODIUM 1 EACH TAB PO SCH (20:50)
[2020-10-08] MEDS: MONTELUKAST 10 MG TAB PO SCH (20:51)
[2020-10-09] MEDS: KETOROLAC 15 MG/ML 1 ML VIAL IVP SCH ×3 (00:22→13:12)
[2020-10-09] MEDS: HEPARIN SODIUM,PORCINE 5,000 UNIT/ML 1 ML VIAL SQ SCH ×3 (04:08→21:06)
[2020-10-09 04:28] LABS: Basophils % (A) 0 %; Eosinophils # (A) 0.3 k/uL (0-0.7); Eosinophils % (A) 4 %; HCT 23.4 % (39.0-53.0); HGB 7.8 gm/dL (13.0-17.5); Lymphocytes # (A) 0.7 k/uL (1.0-4.8); Lymphocytes % (A) 10 %; MCH 30.8 pg (25.0-35.0); MCHC 33.3 g/dL (31.0-37.0); MCV 92.4 fL (80.0-100.0); Mean Platelet Volume 9.3; Monocytes # (A) 0.4 k/uL (0-1.0); Monocytes % (A) 7 %; Neutrophils # (A) 5.1 k/uL (1.3-7.7); Neutrophils % (A) 77 %; Platelet Count 130 k/uL (150-450); RBC 2.53 m/uL (4.30-5.90); RDW 14.6 % (11.5-15.5); WBC 6.6 k/uL (3.8-10.6)
[2020-10-09 04:39] LABS: ALT 14 U/L (4-49); AST 28 U/L (17-59); African American GFR (CKD) >90 (>60 ml/min/1.73 sqM); Albumin 3.6 g/dL (3.5-5.0); Alkaline Phosphatase 36 U/L (38-126); Anion Gap 8 mmol/L; Blood Urea Nitrogen 22 mg/dL (9-20); Calcium 8.9 mg/dL (8.4-10.2); Carbon Dioxide 24 mmol/L (22-30); Chloride 99 mmol/L (98-107); Glucose 99 mg/dL (74-99); Non-African American GFR(CKD) >90 (>60 ml/min/1.73 sqM); Potassium 4.6 mmol/L (3.5-5.1); Sodium 131 mmol/L (137-145); Total Bilirubin 0.7 mg/dL (0.2-1.3); Total Protein 5.5 g/dL (6.3-8.2)
[2020-10-09 04:51] LABS: INR 1.2 (<1.2); Prothrombin Time 12.4 sec (9.0-12.0)
[2020-10-09 06:52] LABS: Glucose,Whole Blood 101 mg/dL (75-99)
[2020-10-09] MEDS: PANTOPRAZOLE 40 MG TABLET PO SCH (06:54)
--- NOTE | 2020-10-09 07:00 | XR ---
EXAMINATION TYPE: XR chest 2V DATE OF EXAM: 10/09/2020 COMPARISON: 10/08/2020 HISTORY: Chest pain TECHNIQUE: Frontal and lateral views of the chest are obtained. FINDINGS: Patchy perihilar and basilar infiltrates persist without significant change. Left basilar chest tube has been removed without sizable pneumothorax. No evidence for pneumothorax. No pleural effusion. The cardiac silhouette size is within normal limits. The osseous structures are grossly intact. IMPRESSION: 1. Patchy perihilar and basilar infiltrates persist without significant change. Left basilar chest t ube has been removed without sizable pneumothorax.
[2020-10-09] MEDS: IPRATROPIUM-ALBUTEROL 3 ML NEB INHALATION SCH ×4 (08:24→21:22)
[2020-10-09] MEDS: INSULIN ASPART (NovoLOG) 100 UNIT/ML VIAL SQ SCH ×4 (08:30→22:08)
[2020-10-09] MEDS: ASPIRIN 81 MG PO SCH (08:33)
[2020-10-09] MEDS: ATORVASTATIN 40 MG TAB PO SCH (08:33)
[2020-10-09] MEDS: METOPROLOL TARTRATE 25 MG TAB PO SCH ×2 (08:33→21:05)
--- NOTE | 2020-10-09 08:53 | P.PN ---
Subjective Progress Note Date: 10/09/20 Principal diagnosis: Aortic stenosis, congenital unicuspid valve, preserved left ventricular function. Previous history of hyperlipidemia, asthma with moderate airway obstruction as well as restriction with preoperative FEV1 64% of predicted, remote TIA history POD #3 aortic valve replacement with 23 mm On-X mechanical valve, epi-aortic ultrasonography, ligation of the left atrial appendage with a 35 mm AtriCure clip Postoperative acute blood loss anemia, expected outcome secondary to hemodilution and cardiopulmonary bypass pump Postoperative right-sided pleural effusion, unexpected POD #1 right sided thoracentesis with removal of 650-[address] Camacho The patient is currently sitting up in a recliner in no acute distress in the ICU. States pain is well-controlled on current medication regimen. Denies shortness of breath. Attempting incentive spirometry use and only achieving 500 mL, weak cough. The patient did have thoracentesis of the right side of the chest yesterday, no complications afterwards. He did ambulate in the hallway yesterday without difficulty. All unnecessary lines and tubes were discontinued yesterday. He was started on Coumadin therapy. No other new concerns. Objective - Vital Signs Vital signs: Vital Signs Temp 99.0 F 10/09/20 08:00 Pulse 84 10/09/20 08:34 Resp 13 10/09/20 08:00 BP 121/73 10/09/20 08:00 Pulse Ox 94 L 10/09/20 08:00 Intake & Output 10/08/20 10/09/20 10/09/20 18:59 06:59 18:59 Intake Total 1334 150 0 Output Total 1330 300 0 Balance 4 -150 0 Weight 80.9 kg Intake: IV 734 150 0 Albumin Human 5% 250 ml 500 In Empty Bag 1 bag @ 250 mls/hr IVPB Q1HR PRN Rx#: [id number] Lactated Ringers 1,000 ml 210 150 0 @ 20 mls/hr IV .Q24H [facility] Rx#:[id number] Pressure bags 24 Oral 600 Output: Chest Tube Drainage 80 Left Pleural/Mediastinal 80 Urine 600 300 0 Straight 300 Other 650 Other: Voiding Method Urinal Urinal ABP, PAP, CO, CI - Last Documented Arterial Blood Pressure 85/48 Pulmonary Artery Pressure 34/11 Cardiac Output 7.6 Cardiac Index 4.2 - Constitutional General appearance: Present: cooperative, no acute distress - Respiratory Details: Lungs sounds diminished bilaterally, right greater than left. Respirations even, nonlabored. Currently on room air with oxygen saturation 96%. Only able to achieve 500 mL on his incentive spirometry. Weak cough. - Cardiovascular Details: S1, S2 present, positive valvular click. Regular rate and rhythm, sinus rhythm on telemetry with heart rate in the 80s. Sternum stable. Palpable peripheral pulses bilaterally. No edema present. No calf pain or tenderness noted. Heart hugger in place with patient demonstrating appropriate use. Antiembolism stockings, SCDs present. - Gastrointestinal Gastrointestinal Comment(s): Abdomen soft, nontender, nondistended. Active bowel sounds present 4 quadrants. Tolerating diet. Positive flatus, negative bowel movement - Genitourinary Genitourinary Comment(s): Lainez discontinued yesterday. Patient did have to be straight cathed last night but was able to void 300 mL this morning on his own. - Integumentary Integumentary Comment(s): Skin is warm and dry with evidence of good perfusion. Anterior chest incision well approximated and covered with dry intact dressing. - Neurologic Neurologic: Present: CNII-XII intact - Musculoskeletal Musculoskeletal: Present: gait normal, strength equal bilaterally - Psychiatric Psychiatric: Present: A&O x's 3, appropriate affect, intact judgment & insight - Allied health notes Allied health notes reviewed: nursing - Labs CBC & Chem 7: 10/09/20 04:01 10/09/20 04:01 Labs: Abnormal Lab Results - Last 24 Hours (Table) 10/08/20 10/08/20 10/08/20 Range/Units 11:34 16:47 18:30 RBC 2.55 L (4.30-5.90) m/uL Hgb 7.9 L (13.0-17.5) gm/dL Hct 24.3 L (39.0-53.0) % Plt Count 109 L (150-450) k/uL Lymphocytes # (1.0-4.8) k/uL PT (9.0-12.0) sec INR (<1.2) Sodium (137-145) mmol/L BUN (9-20) mg/dL Glucose (74-99) mg/dL POC Glucose (mg/dL) 105 H 129 H (75-99) mg/dL Alkaline Phosphatase (38-126) U/L Total Protein (6.3-8.2) g/dL 10/08/20 10/08/20 10/09/20 Range/Units 18:30 20:42 04:01 RBC 2.53 L (4.30-5.90) m/uL Hgb 7.8 L (13.0-17.5) gm/dL Hct 23.4 L (39.0-53.0) % Plt Count 130 L (150-450) k/uL Lymphocytes # 0.7 L (1.0-4.8) k/uL PT (9.0-12.0) sec INR (<1.2) Sodium 131 L (137-145) mmol/L BUN 21 H (9-20) mg/dL Glucose 126 H (74-99) mg/dL POC Glucose (mg/dL) 117 H (75-99) mg/dL Alkaline Phosphatase 31 L (38-126) U/L Total Protein 5.7 L (6.3-8.2) g/dL 10/09/20 10/09/20 10/09/20 Range/Units 04:01 04:01 06:50 RBC (4.30-5.90) m/uL Hgb (13.0-17.5) gm/dL Hct (39.0-53.0) % Plt Count (150-450) k/uL Lymphocytes # (1.0-4.8) k/uL PT 12.4 H (9.0-12.0) sec INR 1.2 H (<1.2) Sodium 131 L (137-145) mmol/L BUN 22 H (9-20) mg/dL Glucose (74-99) mg/dL POC Glucose (mg/dL) 101 H (75-99) mg/dL Alkaline Phosphatase 36 L (38-126) U/L Total Protein 5.5 L (6.3-8.2) g/dL - Imaging and Cardiology Chest x-ray: report reviewed, image reviewed Assessment and Plan Assessment: 1. Aortic stenosis, congenital unicuspid valve, status post mechanical aortic valve replacement 2. Preserved left ventricular function, preoperative EF 55-60% 3. History of hyperlipidemia, treated, cholesterol 110, LDL 44 4. Asthma, stable with moderate airway obstruction as well as restriction, preoperative FEV1 64% of predicted 5. Remote TIA history 6. Postoperative acute blood loss anemia, expected 7. Postoperative right-sided pleural effusion, status post right sided thoracentesis Plan: 1. Continue low-dose aspirin, statin, beta bowen therapy. Will increase beta bowen therapy as tolerated 2. Continue Coumadin to be dosed daily by cardiothoracic surgeon. Goal INR for first 3 months 2-3, after 3 months goal INR 1.5-2 3. Encourage incentive spirometry use 10 times every hour while awake. Bronchodilators per pulmonology 4. Increase activity, ambulate as tolerated. PT/OT/cardiac rehab consulted 5. Will monitor daily labs and x-rays. Electrolyte replacement per protocol. No transfusion 6. Pain control with current medication regimen 7. Insulin management per primary care service. Patient is not diabetic, preoperative hemoglobin A1c 5.4% 8. Strict accurate intake and output. Daily weights using standard upscale 9. Will place transfer orders for 3 S. cardiac stepdown unit. May transfer when bed available 10. Discharge planning in progress. Anticipate discharge to home soon with home care once INR is therapeutic 11. More recommendations to follow based on patient's progress Time with Patient: Greater than 30
--- NOTE | 2020-10-09 09:25 | PN ---
PROGRESS NOTE Mr. Mejia is a 45-year-old male who had unicuspid severe aortic stenosis, underwent aortic valve replacement with an On-X valve. He is doing well this morning, sitting up in the chair, feeling better overall. He denies any chest pain. He denies any dizziness or palpitation. He denies any nausea. His chest tube has been removed. He continues to be at this time on aspirin once a day, Lipitor 40 mg daily, metoprolol tartrate 25 mg twice a day, and he has been started on Coumadin. PHYSICAL EXAMINATION: Blood pressure 107/60 with the heart rate in 90s. LUNGS: A few crackles at the bases. HEART: Regular rate and rhythm. S1, S2 with prosthetic aortic sound and systolic murmur. No diastolic murmur. ABDOMEN: Soft, nontender. Positive bowel sounds. No organomegaly. EXTREMITIES: No edema. LAB DATA: Lab data revealed a BUN and creatinine 22 and 0.89. INR 1.2. Hemoglobin 7.8. Sodium 131. He had a chest ultrasound done yesterday that showed moderate right pleural effusion. IMPRESSION: 1. Status post aortic valve replacement. 2. Pleural effusion. 3. History of hyperlipidemia. RECOMMENDATION: We will continue on present therapy. Continue anticoagulation. Increase his level activity. Continue incentive spirometry. MMODL / IJN: [id number] / LACHELLE
--- NOTE | 2020-10-09 10:14 | P.PN ---
Subjective Progress Note Date: 10/09/20 Principal diagnosis: Aortic valve stenosis 45-year-old white male patient with known history of heart murmur since youth was diagnosed with severe bicuspid aortic valvular disease and subsequently underwent transesophageal echocardiogram and cardiac catheterization. Transesophageal echocardiogram showed severe aortic valvular stenosis, and unicuspid valve. His left ventricular systolic function showed an EF of 35-40%. Coronary cath was negative for any occlusive coronary artery disease. Medical history is positive for mild intermittent bronchial asthma, and a history of a mini stroke 20 years ago. Family history is positive for hypothyroidism and chronic kidney disease in his father and breast cancer in his mother. Today on 10/06/2020 patient presented for aortic valve replacement with a mechanical valve, epiaortic ultrasonography, and ligation of left atrial appendage with 35 mm AtriCure clip. Patient is seen in the postoperative period in the intensive care unit. Patient is sedated on mechanical ventilator, current vent settings are assist-control with a rate of 12, tidal volumes 450, FiO2 70% and PEEP of 8. His postoperative blood gases showed pO2 of 67, pCO2 43, pH of 7.34, and this was done on assist control of 12, 450, 100% and PEEP of 5 and subsequently his PEEP was increased up to 8 and FiO2 was dropped down to 70%. Follow-up blood gases showed pO2 of 238, pCO2 47, pH of 7.29, and the rate was increased to 16. Hemodynamically patient is stable, minimal output in the mediastinal and left pleural chest tube, 100 mL of single and is output in the Pleur-evac. Patient is on lactated Ringer's at a rate of 50 ML per hour, and difficulty reveal an is at 20 mics per minute, and levothyroid is at 1 mics per minute. No other drips. Blood pressure is 82/50, sinus mechanism, patient has epicardial wires connected to external pacemaker box with VVI backup rate of 50, CVP is 13, PA pressures 44/20, cardiac output is 4.2, cardiac index is 2.3. Postoperative blood work has been reviewed showing hemoglobin of 9.5, platelet count is 96, io nized 1.2, electrolytes and renal profile were unremarkable. Chest x-ray shows a mild infiltrate in the left base, ETT in the appropriate position, chest tubes have been noted. On 10/07/2020 patient seen in follow-up in intensive care unit, today is postop day #1, status post aortic valve replacement with a mechanical aortic valve. Patient was successfully weaned and extubated from the mechanical ventilator within 5-1/2 hours from the OR exit time on postoperative day 0 on 10/06/2020. This morning he seen sitting up in a chair, breathing comfortable, he is currently on 4 L of oxygen his pulse ox is 97%, he is breathing comfortably, he is working on incentive spirometer, he is achieving about 500-750 on his incentive spirometer, today's chest x-ray has been reviewed showing slight wors ening of left basilar atelectasis new small tiny left apical pneumothorax, significant worsening of the right mid to lower lung acute infiltrate and/or atelectasis with small to tiny right pleural effusion. Today's labs show no evidence of leukocytosis, patient has been afebrile, today his hemoglobin is 8, electrocerebral renal profile are unremarkable, has had good cardiac output and indices, last one this morning was 6.5 and 3.6 respectively, CVP is 12, patient got additional albumin this morning for low CVP, his [place] catheter has since been discontinued, he is in sinus mechanism, epicardial wires connected to an external pacemaker box with VVI backup, sinus rhythm with a rate of 89, not any pressor support, he is on lactated Ringer's a rate of 50 ML per hour. His mediastinal and left pleural chest tube has a total of 700 mL of serosanguineous then output since surgery yesterday, his pain is fairly well controlled, no altered mentation, he is responding to questions appropriately, midsternal incision is clean dry and intact, chest tube sites are clean dry and intact On 10/08/2020 patient seen in follow-up in intensive care unit, his postoperative day 2, status post aortic valve replacement with mechanical valve, patient is awake and alert, oriented 2, he is up in a chair, breathing comfortably, he is on 2 L of oxygen with a pulse ox of 97%, his incentive spirometer effort is still suboptimal, patient is a achieving 500-750 on the incentive spirometer. His been afebrile, hemodynamically has been stable. His [place] catheter was removed yesterday, Cordis remains in place, he is receiving lactated Ringer's at a rate of 30 and a per hour, no other drips. He is in sinus mechanism with a rate of 87 BPM, his mediastinal and left pleural chest tubes remain in place, there connected to the same Pleur-evac, and there has been 300 mL of thin serosanguineous output in last 24 hours, no air leak, today's chest x-ray showed megaly, and mid and lower lung opacities right greater than left and small right pleural effusion. Today's labs have been reviewed, white blood cell count is 7.4, hemoglobin is 7.8, sodium is 133, the rest of the electrolytes and renal profile were within normal limits, pro- calcitonin level came back low at 0.20. Patient has had no fever or chills no leukocytosis. No cough, or dyspnea. Patient has been ambulating, tolerating activity well. On 10/09/2020 patient seen in follow-up in the intensive care unit. Today is postoperative day #3, status post aortic valve replacement. Patient is doing well, he is on room air, denies any shortness of breath, lung sounds are diminished, no rhonchi or wheezing, he has a separate is 1000 mL today. Improved, no complaints of pain, no palpitations. No cough or congestion, patient is status post right-sided thoracentesis yesterday with removal of 650 ML of bloody effusion. Today's chest x-ray reviewed showing patchy perihilar and basilar infiltrates without significant change. Patient is not on any IV fluids, IV fluids have been hep-locked. Today's labs reviewed, white blood cell count of 6.6, hemoglobin is 7.8, INR is 1.2, patient was started on anticoagulation last night, received 7.5 mg of Coumadin last night. He is in sinus mechanism. Vital signs have been stable, patient has been tolerating ambulation, 's chest tubes have been discontinued Objective - Vital Signs Vital signs: Vital Signs Temp 99.0 F 10/09/20 08:00 Pulse 107 H 10/09/20 09:00 Resp 41 H 10/09/20 09:00 BP 102/63 10/09/20 09:00 Pulse Ox 93 L 10/09/20 09:00 Intake & Output 10/08/20 10/09/20 10/09/20 18:59 06:59 18:59 Intake Total 1334 150 0 Output Total 1330 300 0 Balance 4 -150 0 Weight 80.9 kg Intake: IV 734 150 0 Albumin Human 5% 250 ml 500 In Empty Bag 1 bag @ 250 mls/hr IVPB Q1HR PRN Rx#: [id number] Lactated Ringers 1,000 ml 210 150 0 @ 20 mls/hr IV .Q24H [facility] Rx#:[id number] Pressure bags 24 Oral 600 Output: Chest Tube Drainage 80 Left Pleural/Mediastinal 80 Urine 600 300 0 Straight 300 Other 650 Other: Voiding Method Urinal Urinal Urinal ABP, PAP, CO, CI - Last Documented Arterial Blood Pressure 85/48 Pulmonary Artery Pressure 34/11 Cardiac Output 7.6 Cardiac Index 4.2 - Exam GENERAL EXAM: 45 year old white male, awake and alert, oriented 3, currently on room air with pulse ox of 93% sitting up in the recliner, comfortable in no apparent distress. HEAD: Normocephalic/atraumatic. EYES: Normal reaction of pupils, equal size. Conjunctiva pink, sclera white. NOSE: Clear with pink turbinates. THROAT: No erythema or exudates. NECK: No masses, no JVD, no thyroid enlargement, no adenopathy. CHEST: No chest wall deformity. Symmetrical expansion. Midsternal incision is clean dry and intact, 1 mediastinal and left pleural chest tubes have been discontinued LUNGS: Equal air entry with no crackles, wheeze, rhonchi or dullness. CVS: Regular rate and rhythm, normal S1 and S2, no gallops, no murmurs, no rubs ABDOMEN: Soft, nontender. No hepatosplenomegaly, normal bowel sounds, no guarding or rigidity. EXTREMITIES: No clubbing, no edema, no cyanosis, 2+ pulses and upper and lower extremities. MUSCULOSKELETAL: Muscle strength and tone normal. SPINE: No scoliosis or deformity SKIN: No rashes CENTRAL NERVOUS SYSTEM: alert, oriented 3 No focal deficits, tone is normal in all 4 extremities. - Labs CBC & Chem 7: 10/09/20 04:01 10/09/20 04:01 Labs: Abnormal Lab Results - Last 24 Hours (Table) 10/08/20 10/08/20 10/08/20 Range/Units 11:34 16:47 18:30 RBC 2.55 L (4.30-5.90) m/uL Hgb 7.9 L (13.0-17.5) gm/dL Hct 24.3 L (39.0-53.0) % Plt Count 109 L (150-450) k/uL Lymphocytes # (1.0-4.8) k/uL PT (9.0-12.0) sec INR (<1.2) Sodium (137-145) mmol/L BUN (9-20) mg/dL Glucose (74-99) mg/dL POC Glucose (mg/dL) 105 H 129 H (75-99) mg/dL Alkaline Phosphatase (38-126) U/L Total Protein (6.3-8.2) g/dL 10/08/20 10/08/20 10/09/20 Range/Units 18:30 20:42 04:01 RBC 2.53 L (4.30-5.90) m/uL Hgb 7.8 L (13.0-17.5) gm/dL Hct 23.4 L (39.0-53.0) % Plt Count 130 L (150-450) k/uL Lymphocytes # 0.7 L (1.0-4.8) k/uL PT (9.0-12.0) sec INR (<1.2) Sodium 131 L (137-145) mmol/L BUN 21 H (9-20) mg/dL Glucose 126 H (74-99) mg/dL POC Glucose (mg/dL) 117 H (75-99) mg/dL Alkaline Phosphatase 31 L (38-126) U/L Total Protein 5.7 L (6.3-8.2) g/dL 10/09/20 10/09/20 10/09/20 Range/Units 04:01 04:01 06:50 RBC (4.30-5.90) m/uL Hgb (13.0-17.5) gm/dL Hct (39.0-53.0) % Plt Count (150-450) k/uL Lymphocytes # (1.0-4.8) k/uL PT 12.4 H (9.0-12.0) sec INR 1.2 H (<1.2) Sodium 131 L (137-145) mmol/L BUN 22 H (9-20) mg/dL Glucose (74-99) mg/dL POC Glucose (mg/dL) 101 H (75-99) mg/dL Alkaline Phosphatase 36 L (38-126) U/L Total Protein 5.5 L (6.3-8.2) g/dL Assessment and Plan Plan: Assessment: #1. Aortic valve stenosis, congenital unicuspid valve, status post aortic valve replacement with a 23 mm mechanical valve, at the aortic ultrasonography, ligation of the left atrial appendage, postoperative day 3 #2. Routine post-operative ventilator management, patient was successfully weaned and extubated on postoperative day 0 on 10/06/2020 within 5,5 h of OR exit time #3. Moderate-sized right pleural effusion, status post right-sided thoracentesis would removal of 650 mL of bloody effusion on 10/08/2020 #4. Right mid to lower lung acute infiltrate/atelectasis rule out pneumonia, pro-calcitonin level came back low at 0.20 #5. Acute blood loss anemia, expected outcome of aortic valve r eplacementsurgery #6. History of mild intermittent bronchial asthma #7. History of a remote stroke #8. Nonsmoker, no history of EtOH use Plan: Continue current medical treatment, incentive spirometry use, ambulation, chest tubes have been discontinued, anticoagulation has been started. Chest x-ray has been reviewed showing bibasilar infiltrates. Continue encouraging deep breathing and coughing, encourage ambulation, hemodynamically stable, in sinus mechanism, patient will be moved to the selective care unit today. I performed a history & physical examination of the patient and discussed their management with my nurse practitioner, Jacqueline Kruse. I reviewed the nurse practitioner's note and agree with the documented findings and plan of care. Lung sounds are positive for clear breath sounds. The findings and the impression was discussed with the patient. I attest to the documentation by the nurse practitioner. Time with Patient: Less than 30
[2020-10-09 11:30] LABS: Glucose,Whole Blood 82 mg/dL (75-99)
[2020-10-09] MEDS: FERROUS SULFATE 325 MG TAB PO SCH (13:11)
[2020-10-09] MEDS: ASCORBIC ACID 500 MG TAB PO SCH (13:11)
[2020-10-09 17:02] LABS: Glucose,Whole Blood 86 mg/dL (75-99)
--- NOTE | 2020-10-09 17:46 | P.PN ---
Subjective This is a pleasant 45 years old male with past medical history of CVA/TIA, asthma. He was recently diagnosed with severe aortic stenosis and congenital unicuspid valve with cardiomyopathy and low ejection fraction about 35-40%. He underwent cardiac cath which was negative for significant coronary artery disease. was admitted under cardiothoracic surgery team and underwent aortic valve replacement, postoperatively patient was seen in the ICU he was still intubated and undergoing sedation holiday, he is showing positive mental signs with expected extubation today Vitas looks stable. Labs including CBC, BMP and liver enzymes are unremarkable except for mild anemia He is currently on aspirin 325 mg, Plavix, Lipitor 10/07/2020 Patient is a status post extubation yesterday, today he was sitting in the chair fully awake and oriented with minimal pain at the surgical site which is expected Deweese Catheter was still in place with the expectation to be removed today. Chest tube is in place Patient with no dyspnea, no abdominal pain. Tolerates diet. He does not have bowel movement or passing gas. He is hemodynamically stable. He's on aspirin, Plavix, metoprolol. Also patient received antibiotics with cefazolin 10/08/20 The patient sitting in chair feels even better than yesterday with no chest pain or dyspnea or any other complaint. Blood pressure is low normal. He is slightly tachypneic. Afebrile. CBC and BMP are unremarkable except for mild low sodium at 133. Glucose controlled. Patient denies history of diabetes Chest ultrasound showing 7.7 by pleural effusion Remains on aspirin, Plavix, metoprolol, Lipitor, amiodarone, subcu heparin. On warfarin was started per primary team 10/09/2020 Patient sitting on up and care with no specific complaints, he feels better every day. Denies chest pain or dyspnea. He is hemodynamically stable Labs in the form of CBC and BMP lipid stable as well. Chest x-ray from today, patchy perihilar and basilar infiltrates presents with no significant change. Left basilar chest tube has been removed without sizable pneumothorax He is on aspirin, metoprolol, Lipitor, subcu heparin. On warfarin was started as well Objective - Vital Signs Vital signs: Vital Signs Temp 98.2 F 10/09/20 12:00 Pulse 82 10/09/20 13:00 Resp 15 10/09/20 13:00 BP 119/77 10/09/20 13:00 Pulse Ox 94 L 10/09/20 13:00 Intake & Output 10/08/20 10/09/20 10/09/20 18:59 06:59 18:59 Intake Total 1334 150 0 Output Total 1330 300 200 Balance 4 -150 -200 Weight 80.9 kg Intake: IV 734 150 0 Albumin Human 5% 250 ml 500 In Empty Bag 1 bag @ 250 mls/hr IVPB Q1HR PRN Rx#: [id number] Lactated Ringers 1,000 ml 210 150 0 @ 20 mls/hr IV .Q24H [facility] Rx#:[id number] Pressure bags 24 Oral 600 Output: Chest Tube Drainage 80 Left Pleural/Mediastinal 80 Urine 600 300 200 Straight 300 Other 650 Other: Voiding Method Urinal Urinal Urinal # Bowel Movements 2 ABP, PAP, CO, CI - Last Documented Arterial Blood Pressure 85/48 Pulmonary Artery Pressure 34/11 Cardiac Output 7.6 Cardiac Index 4.2 - Exam GENERAL: The patient is alert and oriented x3, not in any acute distress. Well developed, well nourished. HEENT: Pupils are round and equally reacting to light. EOMI. No scleral icterus. No conjunctival pallor. Normocephalic, atraumatic. No pharyngeal erythema. No thyromegaly. CARDIOVASCULAR: S1 and S2 present. No murmurs, rubs, or gallops. PULMONARY: Chest is clear to auscultation, no wheezing or crackles. ABDOMEN: Soft, nontender, nondistended, normoactive bowel sounds. No palpable organomegaly. MUSCULOSKELETAL: No joint swelling or deformity. EXTREMITIES: No cyanosis, clubbing, or pedal edema. NEUROLOGICAL: Gross neurological examination did not reveal any focal deficits. SKIN: No rashes. no petechiae. - Labs CBC & Chem 7: 10/09/20 04:01 10/09/20 04:01 Labs: Abnormal Lab Results - Last 24 Hours (Table) 10/08/20 10/08/20 10/08/20 Range/Units 16:47 18:30 18:30 RBC 2.55 L (4.30-5.90) m/uL Hgb 7.9 L (13.0-17.5) gm/dL Hct 24.3 L (39.0-53.0) % Plt Count 109 L (150-450) k/uL Lymphocytes # (1.0-4.8) k/uL PT (9.0-12.0) sec INR (<1.2) Sodium 131 L (137-145) mmol/L BUN 21 H (9-20) mg/dL Glucose 126 H (74-99) mg/dL POC Glucose (mg/dL) 129 H (75-99) mg/dL Alkaline Phosphatase 31 L (38-126) U/L Total Protein 5.7 L (6.3-8.2) g/dL 10/08/20 10/09/20 10/09/20 Range/Units 20:42 04:01 04:01 RBC 2.53 L (4.30-5.90) m/uL Hgb 7.8 L (13.0-17.5) gm/dL Hct 23.4 L (39.0-53.0) % Plt Count 130 L (150-450) k/uL Lymphocytes # 0.7 L (1.0-4.8) k/uL PT (9.0-12.0) sec INR (<1.2) Sodium 131 L (137-145) mmol/L BUN 22 H (9-20) mg/dL Glucose (74-99) mg/dL POC Glucose (mg/dL) 117 H (75-99) mg/dL Alkaline Phosphatase 36 L (38-126) U/L Total Protein 5.5 L (6.3-8.2) g/dL 10/09/20 10/09/20 Range/Units 04:01 06:50 RBC (4.30-5.90) m/uL Hgb (13.0-17.5) gm/dL Hct (39.0-53.0) % Plt Count (150-450) k/uL Lymphocytes # (1.0-4.8) k/uL PT 12.4 H (9.0-12.0) sec INR 1.2 H (<1.2) Sodium (137-145) mmol/L BUN (9-20) mg/dL Glucose (74-99) mg/dL POC Glucose (mg/dL) 101 H (75-99) mg/dL Alkaline Phosphatase (38-126) U/L Total Protein (6.3-8.2) g/dL Assessment and Plan Assessment: Severe aortic stenosis with unicuspid aortic valve status post aortic valve replacement Cardiomyopathy with ejection fraction of 35-40% Mild anemia History of asthma, not an active issue History of CVA/TIA Plan: This is a pleasant 45 years old male who presents with severe aortic stenosis status post aortic valve replacement. The primary cardiothoracic surgery team on the case, as well as pulmonary/critical care team. Continue with aspirin and Plavix. Postoperative management. Pain control. Monitor glucose. Continue with metoprolol Labs and medication were reviewed.. Continue same treatment. Continue with sy mptomatic treatment. Resume home medication. Monitor lytes and vitals. DVT and GI prophylaxis. Further recommendationsas per clinical course of the patient DVT prophylaxis: Subcutaneous heparin, and warfarin GI Prophylaxis: Ppi
[2020-10-09] MEDS ORDERED: WARFARIN 7.5 MG TAB PO ONE (18:00)
[2020-10-09] MEDS: MONTELUKAST 10 MG TAB PO SCH (21:05)
[2020-10-09] MEDS: SENNOSIDES-DOCUSATE SODIUM 1 EACH TAB PO SCH (21:06)
[2020-10-09 21:45] LABS: Glucose,Whole Blood 110 mg/dL (75-99)
[2020-10-10] MEDS: HEPARIN SODIUM,PORCINE 5,000 UNIT/ML 1 ML VIAL SQ SCH (03:58)
[2020-10-10 06:17] LABS: Glucose,Whole Blood 145 mg/dL (75-99)
[2020-10-10] MEDS: PANTOPRAZOLE 40 MG TABLET PO SCH (06:41)
[2020-10-10] MEDS: INSULIN ASPART (NovoLOG) 100 UNIT/ML VIAL SQ SCH ×4 (06:41→20:16)
[2020-10-10 07:36] LABS: HCT 26.8 % (39.0-53.0); HGB 8.7 gm/dL (13.0-17.5); MCH 29.8 pg (25.0-35.0); MCHC 32.5 g/dL (31.0-37.0); MCV 91.7 fL (80.0-100.0); Mean Platelet Volume 8.4; Platelet Count 218 k/uL (150-450); RBC 2.92 m/uL (4.30-5.90); RDW 14.8 % (11.5-15.5); WBC 6.9 k/uL (3.8-10.6)
[2020-10-10 07:41] LABS: INR 3.2 (<1.2); Prothrombin Time 30.9 sec (9.0-12.0)
[2020-10-10 07:47] LABS: African American GFR (CKD) >90 (>60 ml/min/1.73 sqM); Anion Gap 9 mmol/L; Blood Urea Nitrogen 22 mg/dL (9-20); Calcium 8.9 mg/dL (8.4-10.2); Carbon Dioxide 25 mmol/L (22-30); Chloride 101 mmol/L (98-107); Glucose 103 mg/dL (74-99); Non-African American GFR(CKD) >90 (>60 ml/min/1.73 sqM); Potassium 4.5 mmol/L (3.5-5.1); Sodium 135 mmol/L (137-145)
--- NOTE | 2020-10-10 07:52 | XR ---
EXAMINATION TYPE: XR chest 2V DATE OF EXAM: 10/10/2020 COMPARISON: 10/09/2020 INDICATION: Post cardiac surgery TECHNIQUE: Frontal and lateral views of the chest are obtained. FINDINGS: The heart size is mildly prominent. The pulmonary vasculature is normal. There is some streak opacity at the right base. Correlate for atelectasis. Pneumonia could be conside red. Some mild streak atelectasis at the left base.. IMPRESSION: 1. Streak opacities bilateral lung bases. Correlate for atelectasis. Pneumonia is not excluded. Follo w-up is recommended
[2020-10-10] MEDS: IPRATROPIUM-ALBUTEROL 3 ML NEB INHALATION SCH ×4 (07:56→19:44)
[2020-10-10] MEDS: ASPIRIN 81 MG PO SCH (09:04)
[2020-10-10] MEDS: ASCORBIC ACID 500 MG TAB PO SCH (09:05)
[2020-10-10] MEDS: FERROUS SULFATE 325 MG TAB PO SCH (09:05)
[2020-10-10] MEDS: METOPROLOL TARTRATE 25 MG TAB PO SCH ×2 (09:05→20:21)
[2020-10-10] MEDS: ATORVASTATIN 40 MG TAB PO SCH (09:05)
--- NOTE | 2020-10-10 10:00 | P.PN ---
Subjective Progress Note Date: 10/10/20 Principal diagnosis: Aortic stenosis, congenital unicuspid valve, preserved left ventricular function. Previous history of hyperlipidemia, asthma with moderate airway obstruction as well as restriction with preoperative FEV1 64% of predicted, remote TIA history POD #4 aortic valve replacement with 23 mm On-X mechanical valve, epi-aortic ultrasonography, ligation of the left atrial appendage with a 35 mm AtriCure clip Postoperative acute blood loss anemia, expected outcome secondary to hemodilution and cardiopulmonary bypass pump Postoperative right-sided pleural effusion, unexpected POD #2 right sided thoracentesis with removal of 650-[address] Camacho The patient is currently sitting up in a recliner in no acute distress on the cardiac stepdown unit. States pain is well-controlled on current medication regimen. Denies shortness of breath. Attempting incentive spirometry use, weak cough. He did ambulate in the hallway yesterday without difficulty. He was started on Coumadin therapy, received 2 doses. No other new concerns. Objective - Vital Signs Vital signs: Vital Signs Temp 98.7 F 10/09/20 20:00 Pulse 80 10/10/20 08:08 Resp 16 10/10/20 08:00 BP 117/66 10/10/20 08:00 Pulse Ox 96 10/10/20 08:00 Intake & Output 10/09/20 10/10/20 10/10/20 18:59 06:59 18:59 Intake Total 560 560 Output Total 200 650 Balance 360 -650 560 Weight 79 kg Intake: IV 0 Lactated Ringers 1,000 ml 0 @ 20 mls/hr IV .Q24H [facility] Rx#:[id number] Oral 560 560 Output: Urine 200 650 Other: Voiding Method Urinal Toilet # Voids 1 # Bowel Movements 2 ABP, PAP, CO, CI - Last Documented Arterial Blood Pressure 85/48 Pulmonary Artery Pressure 34/11 Cardiac Output 7.6 Cardiac Index 4.2 - Constitutional General appearance: Present: cooperative, no acute distress - Respiratory Details: Lungs sounds diminished bilaterally. Respirations even, nonlabored. Currently on room air with oxygen saturation 93%. Able to achieve 750 mL on his incentive spirometry. Weak cough. - Cardiovascular Details: S1, S2 present, positive valvular click. Regular rate and rhythm, sinus rhythm on telemetry with heart rate in the 80s. Sternum stable. Palpable peripheral pulses bilaterally. No edema present. No calf pain or tenderness noted. Heart hugger in place with patient demonstrating appropriate use. Antiembolism stockings, SCDs present. - Gastrointestinal Gastrointestinal Comment(s): Abdomen soft, nontender, nondistended. Active bowel sounds present 4 quadrants. Tolerating diet. Positive bowel movement - Genitourinary Genitourinary Comment(s): Continues to void on his own - Integumentary Integumentary Comment(s): Skin is warm and dry with evidence of good perfusion. Anterior chest incision well approximated and covered with dry intact dressing. - Neurologic Neurologic: Present: CNII-XII intact - Musculoskeletal Musculoskeletal: Present: gait normal, strength equal bilaterally - Psychiatric Psychiatric: Present: A&O x's 3, appropriate affect, intact judgment & insight - Allied health notes Allied health notes reviewed: nursing - Labs CBC & Chem 7: 10/10/20 06:52 10/10/20 06:52 Labs: Abnormal Lab Results - Last 24 Hours (Table) 10/09/20 10/10/20 10/10/20 Range/Units 21:33 06:15 06:52 RBC (4.30-5.90) m/uL Hgb (13.0-17.5) gm/dL Hct (39.0-53.0) % PT 30.9 H (9.0-12.0) sec INR 3.2 H (<1.2) Sodium (137-145) mmol/L BUN (9-20) mg/dL Glucose (74-99) mg/dL POC Glucose (mg/dL) 110 H 145 H (75-99) mg/dL 10/10/20 10/10/20 Range/Units 06:52 06:52 RBC 2.92 L (4.30-5.90) m/uL Hgb 8.7 L (13.0-17.5) gm/dL Hct 26.8 L (39.0-53.0) % PT (9.0-12.0) sec INR (<1.2) Sodium 135 L (137-145) mmol/L BUN 22 H (9-20) mg/dL Glucose 103 H (74-99) mg/dL POC Glucose (mg/dL) (75-99) mg/dL - Imaging and Cardiology Chest x-ray: report reviewed, image reviewed Assessment and Plan Assessment: 1. Aortic stenosis, congenital unicuspid valve, status post mechanical aortic valve replacement 2. Preserved left ventricular function, preoperative EF 55-60% 3. History of hyperlipidemia, treated, cholesterol 110, LDL 44 4. Asthma, stable with moderate airway obstruction as well as restriction, preoperative FEV1 64% of predicted 5. Remote TIA history 6. Postoperative acute blood loss anemia, expected 7. Postoperative right-sided pleural effusion, status post right sided tho racentesis Plan: 1. Continue low-dose aspirin, statin, beta bowen therapy. Will increase beta bowen therapy as tolerated 2. Continue Coumadin to be dosed daily by cardiothoracic surgeon. Goal INR for first 3 months 2-3, after 3 months goal INR 1.5-2 3. Encourage incentive spirometry use 10 times every hour while awake. Bronchodilators per pulmonology 4. Increase activity, ambulate as tolerated. PT/OT/cardiac rehab consulted 5. Will monitor daily labs and x-rays. Electrolyte replacement per protocol. No transfusion 6. Pain control with current medication regimen 7. Insulin management per primary care service. Patient is not diabetic, preoperative hemoglobin A1c 5.4% 8. Strict accurate intake and output. Daily weights using stand up scale 9. Discharge planning in progress. Anticipate discharge to home soon with home care once INR is therapeutic 10. More recommendations to follow based on patient's progress Time with Patient: Greater than 30
--- NOTE | 2020-10-10 11:07 | P.PN ---
Subjective This is a pleasant 45 years old male with past medical history of CVA/TIA, asthma. He was recently diagnosed with severe aortic stenosis and congenital unicuspid valve with cardiomyopathy and low ejection fraction about 35-40%. He underwent cardiac cath which was negative for significant coronary artery disease. was admitted under cardiothoracic surgery team and underwent aortic valve replacement, postoperatively patient was seen in the ICU he was still intubated and undergoing sedation holiday, he is showing positive mental signs with expected extubation today Vitas looks stable. Labs including CBC, BMP and liver enzymes are unremarkable except for mild anemia He is currently on aspirin 325 mg, Plavix, Lipitor 10/07/2020 Patient is a status post extubation yesterday, today he was sitting in the chair fully awake and oriented with minimal pain at the surgical site which is expected Winchester Catheter was still in place with the expectation to be removed today. Chest tube is in place Patient with no dyspnea, no abdominal pain. Tolerates diet. He does not have bowel movement or passing gas. He is hemodynamically stable. He's on aspirin, Plavix, metoprolol. Also patient received antibiotics with cefazolin 10/08/20 The patient sitting in chair feels even better than yesterday with no chest pain or dyspnea or any other complaint. Blood pressure is low normal. He is slightly tachypneic. Afebrile. CBC and BMP are unremarkable except for mild low sodium at 133. Glucose controlled. Patient denies history of diabetes Chest ultrasound showing 7.7 by pleural effusion Remains on aspirin, Plavix, metoprolol, Lipitor, amiodarone, subcu heparin. On warfarin was started per primary team 10/09/2020 Patient sitting on up and care with no specific complaints, he feels better every day. Denies chest pain or dyspnea. He is hemodynamically stable Labs in the form of CBC and BMP lipid stable as well. Chest x-ray from today, patchy perihilar and basilar infiltrates presents with no significant change. Left basilar chest tube has been removed without sizable pneumothorax He is on aspirin, metoprolol, Lipitor, subcu heparin. On warfarin was started as well 10/10/2020 Patient remains in chair with no symptoms. No chest pain or dyspnea. Vitas looks stable. His blood pressure is 117/66, respiratory rate 16, heart rate is 82, his saturating 96% on room air. CBC is a stable with hemoglobin 8.7. Sodium was 135, creatinine 0.8. She was controlled. Chest x-rays from today showing straight capacity bilateral lung bases. Correlate for atelectasis. Pneumonia is not excluded. Follow-up is recommended per Radiologist Management of anticoagulation per surgery primary team. His Coumadin today increased from 1.2 up to 3.2. Recommend holding Coumadin today and monitor for signs of bleeding. Objective - Vital Signs Vital signs: Vital Signs Temp 98.7 F 10/09/20 20:00 Pulse 80 10/10/20 08:08 Resp 16 10/10/20 08:00 BP 117/66 10/10/20 08:00 Pulse Ox 96 10/10/20 08:00 Intake & Output 10/09/20 10/10/20 10/10/20 18:59 06:59 18:59 Intake Total 560 560 Output Total 200 650 Balance 360 -650 560 Weight 79 kg Intake: IV 0 Lactated Ringers 1,000 ml 0 @ 20 mls/hr IV .Q24H [facility] Rx#:[id number] Oral 560 560 Output: Urine 200 650 Other: Voiding Method Urinal Toilet # Voids 1 # Bowel Movements 2 ABP, PAP, CO, CI - Last Documented Arterial Blood Pressure 85/48 Pulmonary Artery Pressure 34/11 Cardiac Output 7.6 Cardiac Index 4.2 - Exam GENERAL: The patient is alert and oriented x3, not in any acute distress. Well developed, well nourished. HEENT: Pupils are round and equally reacting to light. EOMI. No scleral icterus. No conjunctival pallor. Normocephalic, atraumatic. No pharyngeal erythema. No thyromegaly. CARDIOVASCULAR: S1 and S2 present. No murmurs, rubs, or gallops. PULMONARY: Chest is clear to auscultation, no wheezing or crackles. ABDOMEN: Soft, nontender, nondistended, normoactive bowel sounds. No palpable organomegaly. MUSCULOSKELETAL: No joint swelling or deformity. EXTREMITIES: No cyanosis, clubbing, or pedal edema. NEUROLOGICAL: Gross neurological examination did not reveal any focal deficits. SKIN: No rashes. no petechiae. - Labs CBC & Chem 7: 10/10/20 06:52 10/10/20 06:52 Labs: Abnormal Lab Results - Last 24 Hours (Table) 10/09/20 10/10/20 10/10/20 Range/Units 21:33 06:15 06:52 RBC (4.30-5.90) m/uL Hgb (13.0-17.5) gm/dL Hct (39.0-53.0) % PT 30.9 H (9.0-12.0) sec INR 3.2 H (<1.2) Sodium (137-145) mmol/L BUN (9-20) mg/dL Glucose (74-99) mg/dL POC Glucose (mg/dL) 110 H 145 H (75-99) mg/dL 10/10/20 10/10/20 Range/Units 06:52 06:52 RBC 2.92 L (4.30-5.90) m/uL Hgb 8.7 L (13.0-17.5) gm/dL Hct 26.8 L (39.0-53.0) % PT (9.0-12.0) sec INR (<1.2) Sodium 135 L (137-145) mmol/L BUN 22 H (9-20) mg/dL Glucose 103 H (74-99) mg/dL POC Glucose (mg/dL) (75-99) mg/dL Assessment and Plan Assessment: Severe aortic stenosis with unicuspid aortic valve status post aortic valve replacement Cardiomyopathy with ejection fraction of 35-40% Coagulopathy secondary to Coumadin Mild anemia History of asthma, not an active issue History of CVA/TIA Plan: This is a pleasant 45 years old male who presents with severe aortic stenosis status post aortic valve replacement. The primary cardiothoracic surgery team on the case, as well as pulmonary/critical care team. Continue with aspirin and Plavix. Postoperative management. Pain control. Monitor glucose. Continue w ith metoprolol. Hold Coumadin and monitor INR Labs and medication were reviewed.. Continue same treatment. Continue with symptomatic treatment. Resume home medication. Monitor lytes and vitals. DVT and GI prophylaxis. Further recommendationsas per clinical course of the patient DVT prophylaxis: Subcutaneous heparin, and warfarin which is on hold GI Prophylaxis: Ppi
[2020-10-10 11:57] LABS: Glucose,Whole Blood 118 mg/dL (75-99)
--- NOTE | 2020-10-10 13:46 | P.PN ---
Subjective This is a pleasant 45-year-old male status post aortic valve replacement with On-X valve. He is seen and examined sitting up in the recliner in no acute distress. He is attempting to take a small nap before his comes to visit for the afternoon. He states he did eat more today than he did yesterday. He is adjusting to having had multiple teeth pulled prior to surgery. He denies symptoms of chest pain, shortness of breath, dizziness or palpitations. Blood pressure 117/66 heart rate 82 afebrile maintaining oxygen saturation on room air. Laboratory data reviewed, WBC 6.9, hemoglobin 8.7, INR 3.2, sodium 135, potassium 4.5 and creatinine 0.87. Currently maintained on aspirin 81 mg daily, atorvastatin 40 mg daily, Lopressor 25 mg twice a day and Coumadin. Maintaining sinus mechanism on telemetry. Chest x-ray this morning reveals streaky opacity is bilateral lung bases suggestive of atelectasis. GENERAL: Well-appearing, well-nourished and in no acute distress. NECK: Supple without JVD or thyromegaly. LUNGS: Breath sounds clear to auscultation bilaterally. Respiration equal and unlabored. No wheezes, rales or rhonchi. Diminished bilaterally. HEART: Regular rate and rhythm with aortic click noted, no rubs or gallops. S1 and S2 heard. EXTREMITIES: Normal range of motion, no edema. No clubbing or cyanosis. Pe ripheral pulses intact. ASSESSMENT Status post mechanical aortic valve replacement due to congenital unicuspid aortic valve Pleural effusion Dyslipidemia PLAN Encourage use of incentive spirometer. Increase activity as he can tolerate. Continue current medical regimen, we will continue to follow and make recommendations accordingly. Nurse Practitioner note has been reviewed, I agree with a documented findings and plan of care. Patient was seen and examined. Objective - Vital Signs Vital signs: Vital Signs Temp 98.7 F 10/09/20 20:00 Pulse 80 10/10/20 08:08 Resp 16 10/10/20 08:00 BP 117/66 10/10/20 08:00 Pulse Ox 96 10/10/20 08:00 Intake & Output 10/09/20 10/10/20 10/10/20 18:59 06:59 18:59 Intake Total 560 560 Output Total 200 650 Balance 360 -650 560 Weight 79 kg Intake: IV 0 Lactated Ringers 1,000 ml 0 @ 20 mls/hr IV .Q24H [facility] Rx#:[id number] Oral 560 560 Output: Urine 200 650 Other: Voiding Method Urinal Toilet Toilet # Voids 1 # Bowel Movements 2 ABP, PAP, CO, CI - Last Documented Arterial Blood Pressure 85/48 Pulmonary Artery Pressure 34/11 Cardiac Output 7.6 Cardiac Index 4.2 - Labs CBC & Chem 7: 10/10/20 06:52 10/10/20 06:52 Labs: Abnormal Lab Results - Last 24 Hours (Table) 10/09/20 10/10/20 10/10/20 Range/Units 21:33 06:15 06:52 RBC (4.30-5.90) m/uL Hgb (13.0-17.5) gm/dL Hct (39.0-53.0) % PT 30.9 H (9.0-12.0) sec INR 3.2 H (<1.2) Sodium (137-145) mmol/L BUN (9-20) mg/dL Glucose (74-99) mg/dL POC Glucose (mg/dL) 110 H 145 H (75-99) mg/dL 10/10/20 10/10/20 Range/Units 06:52 06:52 RBC 2.92 L (4.30-5.90) m/uL Hgb 8.7 L (13.0-17.5) gm/dL Hct 26.8 L (39.0-53.0) % PT (9.0-12.0) sec INR (<1.2) Sodium 135 L (137-145) mmol/L BUN 22 H (9-20) mg/dL Glucose 103 H (74-99) mg/dL POC Glucose (mg/dL) (75-99) mg/dL
[2020-10-10] MEDS ORDERED: MD COMMUNICATION TO PHARMACY 1 EACH MISC PO PRN (14:47)
[2020-10-10 16:54] LABS: Glucose,Whole Blood 95 mg/dL (75-99)
[2020-10-10] MEDS ORDERED: WARFARIN 0.5 MG TAB PO ONE (18:00)
[2020-10-10 20:08] LABS: Glucose,Whole Blood 102 mg/dL (75-99)
[2020-10-10] MEDS: SENNOSIDES-DOCUSATE SODIUM 1 EACH TAB PO SCH (20:21)
[2020-10-10] MEDS: MONTELUKAST 10 MG TAB PO SCH (20:21)
[2020-10-10] MEDS: ACETAMINOPHEN TAB 500 MG TAB PO PRN (22:31)
[2020-10-11 03:41] VITALS: RESP 16
[2020-10-11 05:57] LABS: Glucose,Whole Blood 106 mg/dL (75-99)
[2020-10-11] MEDS: INSULIN ASPART (NovoLOG) 100 UNIT/ML VIAL SQ SCH ×2 (06:06→13:00)
[2020-10-11] MEDS: PANTOPRAZOLE 40 MG TABLET PO SCH (06:50)
--- NOTE | 2020-10-11 07:04 | XR ---
EXAMINATION TYPE: XR chest 2V DATE OF EXAM: 10/11/2020 COMPARISON: Chest x-ray from yesterday and older studies. HISTORY: Post open cardiac surgery. TECHNIQUE: Frontal and lateral views of the chest are obtained. FINDINGS: There is redemonstration of overlying sternal wires and left atrial appendage clip. Stable cardiomegaly and patchy bibasilar opacities. Persistent small to tiny bilateral pleural effusions se en best on lateral view. Upper lungs remain clear without pneumothorax. Osseous structures are intact . IMPRESSION: Cardiomegaly with small to tiny bilateral pleural effusions and patchy bibasilar atelect asis and/or infiltrate remain present. No significant change from one day earlier.
[2020-10-11 07:58] LABS: HCT 25.9 % (39.0-53.0); HGB 8.5 gm/dL (13.0-17.5); MCH 30.2 pg (25.0-35.0); MCHC 32.8 g/dL (31.0-37.0); Mean Platelet Volume 8.5; Platelet Count 234 k/uL (150-450); RBC 2.82 m/uL (4.30-5.90); RDW 14.9 % (11.5-15.5); WBC 6.2 k/uL (3.8-10.6)
[2020-10-11 08:26] LABS: INR 3.7 (<1.2); Prothrombin Time 35.2 sec (9.0-12.0)
[2020-10-11 08:34] LABS: African American GFR (CKD) >90 (>60 ml/min/1.73 sqM); Anion Gap 7 mmol/L; Blood Urea Nitrogen 19 mg/dL (9-20); Calcium 8.8 mg/dL (8.4-10.2); Carbon Dioxide 27 mmol/L (22-30); Chloride 103 mmol/L (98-107); Glucose 100 mg/dL (74-99); Non-African American GFR(CKD) >90 (>60 ml/min/1.73 sqM); Potassium 4.5 mmol/L (3.5-5.1); Sodium 137 mmol/L (137-145)
[2020-10-11] MEDS: IPRATROPIUM-ALBUTEROL 3 ML NEB INHALATION SCH ×3 (08:55→16:12)
[2020-10-11] MEDS: ATORVASTATIN 40 MG TAB PO SCH (10:01)
[2020-10-11] MEDS: METOPROLOL TARTRATE 25 MG TAB PO SCH (10:01)
[2020-10-11] MEDS: ASPIRIN 81 MG PO SCH (10:01)
[2020-10-11] MEDS: ASCORBIC ACID 500 MG TAB PO SCH (10:01)
[2020-10-11] MEDS: FERROUS SULFATE 325 MG TAB PO SCH (10:01)
--- NOTE | 2020-10-11 11:45 | P.PN ---
Subjective Progress Note Date: 10/11/20 Principal diagnosis: Aortic stenosis. On 10/08/2020 patient seen in follow-up in intensive care unit, his postoperative day 2, status post aortic valve replacement with mechanical valve, patient is awake and alert, oriented 2, he is up in a chair, breathing comfortably, he is on 2 L of oxygen with a pulse ox of 97%, his incentive spirometer effort is still suboptimal, patient is a achieving 500-750 on the incentive spirometer. His been afebrile, hemodynamically has been stable. His Reading-Penny catheter was removed yesterday, Cordis remains in place, he is receiving lactated Ringer's at a rate of 30 and a per hour, no other drips. He is in sinus mechanism with a rate of 87 BPM, his mediastinal and left pleural chest tubes remain in place, there connected to the same Pleur-evac, and there has been 300 mL of thin serosanguineous output in last 24 hours, no air leak, t emperatriz's chest x-ray showed megaly, and mid and lower lung opacities right greater than left and small right pleural effusion. Today's labs have been reviewed, white blood cell count is 7.4, hemoglobin is 7.8, sodium is 133, the rest of the electrolytes and renal profile were within normal limits, pro-calcitonin level came back low at 0.20. Patient has had no fever or chills no leukocytosis. No cough, or dyspnea. Patient has been ambulating, tolerating activity well. On 10/09/2020 patient seen in follow-up in the intensive care unit. Today is postoperative day #3, status post aortic valve replacement. Patient is doing well, he is on room air, denies any shortness of breath, lung sounds are diminished, no rhonchi or wheezing, he has a separate is 1000 mL today. Improved, no complaints of pain, no palpitations. No cough or congestion, patient is status post right-sided thoracentesis yesterday with removal of 650 ML of bloody effusion. Today's chest x-ray reviewed showing patchy perihilar and basilar infiltrates without significant change. Patient is not on any IV fluids, IV fluids have been hep-locked. Today's labs reviewed, white blood cell count of 6.6, hemoglobin is 7.8, INR is 1.2, patient was started on anticoagulation last night, received 7.5 mg of Coumadin last night. He is in sinus mechanism. Vital signs have been stable, patient has been tolerating ambulation, 's chest tubes have been discontinued. Progress note dated 10/11/2020. This is a 45-year-old male, is postop day #5, status post aortic valve replacement, for a congenital unicuspid valve. The surgery was done by Dr. Jiménez. The patient is doing reasonably well. His been weaned off of oxygen. He is not receiving any IV fluids. The patient did have a thoracentesis done a couple days ago on the right side. 650 mL of bloody effusion was removed. His chest x-ray looks very good. Continues to do well on his incentive spirometer, any about 1000 mL. The patient mentions that he may go home tomorrow. The patient denies any difficulty breathing, coughing, wheezing, or chest discomfort . He continues to use his incentive spirometer, every hour. We also recommend deep breathing, coughing, and clearing of secretions. White count is 6.2, hemoglobin 8.5, hematocrit 25.9, and platelet count 234,000. His PT is 35.2, with an INR 3.7. Sodium 137, potassium 4.5, chlorides 103, CO2 27, anion gap 7, BUN 19, creatinine 0.83. The patient had a aortic valve replacement, with a 23 mm mechanical valve. Objective - Vital Signs Vital signs: Vital Signs Temp 97.9 F 10/11/20 03:38 Pulse 80 10/11/20 09:07 Resp 16 10/11/20 03:38 BP 95/60 10/11/20 03:38 Pulse Ox 100 10/11/20 03:38 Intake & Output 10/10/20 10/11/20 10/11/20 18:59 06:59 18:59 Intake Total 1680 Output Total 400 Balance 1680 -400 Weight 78.8 kg Intake: Oral 1680 Output: Urine 400 Other: Voiding Method Toilet Toilet # Voids 1 1 ABP, PAP, CO, CI - Last Documented Arterial Blood Pressure 85/48 Pulmonary Artery Pressure 34/11 Cardiac Output 7.6 Cardiac Index 4.2 - Exam GENERAL EXAM: 45 year old white male, awake and alert, oriented 3, currently on room air with pulse ox of 96% sitting up in the recliner, comfortable in no apparent distress. HEAD: Normocephalic/atraumatic. EYES: Normal reaction of pupils, equal size. Conjunctiva pink, sclera white. NOSE: Clear with pink turbinates. THROAT: No erythema or exudates. NECK: No masses, no JVD, no thyroid enlargement, no adenopathy. CHEST: No chest wall deformity. Symmetrical expansion. Midsternal incision is clean dry and intact. LUNGS: Equal air entry with no crackles, wheeze, rhonchi or dullness. CVS: Regular rate and rhythm, normal S1 and S2, no gallops, no murmurs, no rubs ABDOMEN: Soft, nontender. No hepatosplenomegaly, normal bowel sounds, no guarding or rigidity. EXTREMITIES: No clubbing, no edema, no cyanosis, 2+ pulses and upper and lower extremities. MUSCULOSKELETAL: Muscle strength and tone normal. SPINE: No scoliosis or deformity SKIN: No rashes CENTRAL NERVOUS SYSTEM: alert, oriented 3 No focal deficits, tone is normal in all 4 extremities. - Labs CBC & Chem 7: 10/11/20 07:43 10/11/20 07:43 Labs: Abnormal Lab Results - Last 24 Hours (Table) 10/10/20 10/10/20 10/11/20 Range/Units 11:46 20:07 05:55 RBC (4.30-5.90) m/uL Hgb (13.0-17.5) gm/dL Hct (39.0-53.0) % PT (9.0-12.0) sec INR (<1.2) Glucose (74-99) mg/dL POC Glucose (mg/dL) 118 H 102 H 106 H (75-99) mg/dL 10/11/20 10/11/20 10/11/20 Range/Units 07:43 07:43 07:43 RBC 2.82 L (4.30-5.90) m/uL Hgb 8.5 L (13.0-17.5) gm/dL Hct 25.9 L (39.0-53.0) % PT 35.2 H (9.0-12.0) sec INR 3.7 H (<1.2) Glucose 100 H (74-99) mg/dL POC Glucose (mg/dL) (75-99) mg/dL Assessment and Plan Assessment: Aortic valve stenosis, secondary to a congenital unicuspid aortic valve, postop day #5, status post aortic valve replacement, with a 23 mm mechanical valve. Routine postoperative ventilator management, with successful extubation on 10/06/2020. Moderate size right pleural effusion, status post right-sided thoracentesis, with 650 mL of bloody effusion removed, on 10/08/2020. Bibasilar atelectasis, resolved. Acute blood loss anemia. History of mild intermittent chronic bronchial asthma. History of remote CVA. Lifelong nonsmoker. Plan: Plan dated 10/11/2020. Currently, the patient seemed be doing relatively well. Labs, x-rays, and medications are all reviewed. The patient has been weaned off of oxygen therapy. His saturations are excellent. In addition, his chest x-ray looks good, and he is doing much better on incentive spirometry. The patient will follow me in the office post discharge. Likely at that time, we'll repeat a chest x-ray. No additional recommendations are made. He's not sure if he is be ing discharged home today or tomorrow. We will continue to follow. Prognosis is guarded. Time with Patient: Less than 30
[2020-10-11 11:52] LABS: Glucose,Whole Blood 107 mg/dL (75-99)
--- NOTE | 2020-10-11 12:43 | PN ---
PROGRESS NOTE Mr. Mejia is a 45-year-old male status post aortic valve replacement for severe unicuspid aortic stenosis. He is doing well this morning. He denies any chest pain. His breathing is stable. He denies any dizziness or palpitation. He denies any nausea. He continues to be on aspirin once a day, metoprolol tartrate 25 mg twice a day. PHYSICAL EXAMINATION: VITAL SIGNS: Blood pressure running in the 100s with a heart rate in 70s. LUNGS: Clear. HEART: Regular rate and rhythm, S1, S2. No S3 with prosthetic aortic sound. No diastolic murmur. ABDOMEN: Soft and nontender. EXTREMITIES: No edema. LAB DATA: Revealed hemoglobin of 8.5. INR of 3.7. BUN creatinine 19 and 0.83. IMPRESSION: Status post aortic valve replacement with a unicuspid aortic valve. RECOMMENDATION: Patient will continue present therapy. His Coumadin continues to be on hold because of the INR. I expect he should be able to be discharged home soon and follow up as an outpatient with Dr. Monterroso. MMBETSYL / JDN: [id number] /
[2020-10-11] MEDS: ACETAMINOPHEN TAB 500 MG TAB PO PRN (14:00)
--- NOTE | 2020-10-11 14:29 | P.DS ---
Providers Date of admission: 10/06/20 05:31 Expected date of discharge: 10/11/20 Attending physician: Basilio Jiménez Consults: 10/06/20 11:14 Consult Physician Routine Consulting Provider: Bro Camacho Consult Reason/Comments: Helpdesk Analyst Consult: post cardiac surgery Do you want consulting provider notified?: Yes Consult Physician Routine Consulting Provider: Norbert Grady Consult Reason/Comments: Delivery Department Supervisor Consult: post cardiac surgery Do you want consulting provider notified?: Yes Consult Physician Routine Consulting Provider: Alecia Rajan Consult Reason/Comments: med shiloh; Debi Mar patient Do you want consulting provider notified?: Yes Primary care physician: Jose R Mar MD Hospital Course: FINAL DIAGNOSIS: 1. Aortic stenosis, congenital unicuspid valve, status post mechanical aortic valve replacement 2. Preserved left ventricular function, preoperative EF 55-60% 3. History of hyperlipidemia, treated, cholesterol 110, LDL 44 4. Asthma, stable with moderate airway obstruction as well as restriction, preoperative FEV1 64% of predicted 5. Remote TIA history 6. Postoperative acute blood loss anemia, expected 7. Postoperative right-sided pleural effusion, status post right sided thoracentesis PRINCIPAL PROCEDURE: 1. Aortic valve replacement with a 23 mm On-X mechanical valve. 2. Epi-aortic ultrasonography. 3. Ligation of the left atrial appendage with a 35 mm AtriCure clip. HISTORY OF PRESENT ILLNESS: This is a 45-year-old gentleman who is followed by Dr. Jose R Mar on an outpatient basis. He is a past medical history significant for a heart murmur since childhood, hyperlipidemia, obesity, asthma, and remote history of TIA. Recently, he has been complaining of fatigue and exertional dyspnea which he reports has progressively worsened over the past 4-6 months. A 2-D echocardiogram was completed which showed severe bicuspid aortic valvular disease and for further workup he subsequently underwent a transesophageal echocardiogram and cardiac catheterization. The transesophageal echocardiogram demonstrated moderate to severe aortic valve stenosis with what appeared to be a monocusp valve and moderate to severe aortic valve regurgitation, it also demonstrated his left ventricle to be mildly dilated with mild generalized hypokinesis with an ejection fraction of 45%. The cardiac catheterization results showed no occlusive coronary artery disease. Subsequently, due to the patient's presenting symptoms and findings on his above-mentioned studies a consult was placed to Dr. Basilio Jiménez from cardiothoracic surgery. Dr. Jiménez met with the patient and his , discussed the findings on the transesophageal echocardiogram and cardiac catheterization films. Treatment options were discussed with the patient and the patient's including aortic valve replacement. Risks and benefits of the surgery including the STS risk score were discussed with the patient and knowing an understanding the risks, the patient wished to proceed with the surgical option. HOSPITAL COURSE: On 10/06/2020 the patient was admitted to the hospital, and after obtaining consent was taken to the operating room where Dr. Basilio Jiménez performed an aortic valve replacement with a 23 mm On-X mechanical valve, epi- aortic ultrasonography and ligation of the left atrial appendage with a 35 mm AtriCure clip. Upon completion of the surgery the patient was taken to the cardiovascular intensive care unit where he was recovered, monitored hemodynamically, and where he progressed cardiac rehabilitation phase 1. He was extubated, all lines, tubes and supportive drips were discontinued when appropriate and he was transferred to the cardiac stepdown unit for further mon itoring and rehabilitation. His oxygen was titrated down, he continued to work with physical/occupational therapy and cardiac rehabilitation, he was tolerating an oral diet, his pain was well controlled without narcotics and he was ready to be discharged home with [facility] on postoperative day #5. He has received written and verbal instructions regarding his medications, activity restrictions, signs and symptoms requiring physician notification and his follow-up appointments. COMPLICATIONS: Postoperatively the patient did develop a right-sided pleural effusion and subsequently underwent a right thoracentesis with 650-700 mL of pleural fluid drained. CONSULTATIONS: 1. Dr. ROSALIE Monterroso for cardiology management. 2. Dr. Camacho for pulmonary and ventilator management. 3. Dr. Denis for medical management. Plan - Discharge Summary Discharge Rx Participant: Yes New Discharge Prescriptions: New Warfarin [Coumadin] 2.5 mg PO DAILY #30 tab Ferrous Sulfate [Iron (65 MG Elemental)] 325 mg PO W/LUNCH #14 tab Metoprolol Tartrate [Lopressor] 25 mg PO BID #60 tab Pantoprazole [Protonix] 40 mg PO AC-BRKFST #30 tablet. Acetaminophen Tab [Tylenol] 1,000 mg PO Q6HR PRN tab PRN Reason: Fever And/ Or Pain Continue Zinc 50 mg PO DAILY Budesonide/Formoterol Fumarate [Symbicort 160-4.5 Mcg Inhaler] 2 puff INHALATION BID Rosuvastatin Calcium [Crestor] 10 mg PO DAILY Montelukast Sodium [Singulair] 10 mg PO HS Cholecalciferol [Vitamin D3 (25 Mcg = 1000 Iu)] 1,000 unit PO BID Ascorbic Acid [Vitamin C] 1,000 mg PO DAILY [place]-3 Fatty Acids/Fish Oil [Fish Oil 1,000 mg Softgel] 1 each PO DAILY Aspirin 81 mg PO DAILY Albuterol Inhaler [Ventolin Hfa Inhaler] 2 puff INHALATION RT-QID PRN PRN Reason: Dyspnea Discontinued Metoprolol Tartrate [Lopressor] 25 mg PO QAM Metoprolol Tartrate [Lopressor] 12.5 mg PO HS Discharge Medication List Ascorbic Acid [Vitamin C] 1,000 mg PO DAILY 08/28/20 [History] Aspirin 81 mg PO DAILY 08/28/20 [History] Budesonide/Formoterol Fumarate [Symbicort 160-4.5 Mcg Inhaler] 2 puff INHALATION BID 08/28/20 [History] Cholecalciferol [Vitamin D3 (25 Mcg = 1000 Iu)] 1,000 unit PO BID 08/28/20 [History] Montelukast Sodium [Singulair] 10 mg PO HS 08/28/20 [History] [place]-3 Fatty Acids/Fish Oil [Fish Oil 1,000 mg Softgel] 1 each PO DAILY 08/28/20 [History] Rosuvastatin Calcium [Crestor] 10 mg PO DAILY 08/28/20 [History] Zinc 50 mg PO DAILY 08/28/20 [History] Albuterol Inhaler [Ventolin Hfa Inhaler] 2 puff INHALATION RT-QID PRN 10/01/20 [History] Acetaminophen Tab [Tylenol] 1,000 mg PO Q6HR PRN tab 10/11/20 [Rx] Ferrous Sulfate [Iron (65 MG Elemental)] 325 mg PO W/LUNCH #14 tab 10/11/20 [Rx] Metoprolol Tartrate [Lopressor] 25 mg PO BID #60 tab 10/11/20 [Rx] Pantoprazole [Protonix] 40 mg PO CHARLI-BRKFST #30 tablet. 10/11/20 [Rx] Warfarin [Coumadin] 2.5 mg PO DAILY #30 tab 10/11/20 [Rx] Follow up Appointment(s)/Referral(s): Beck Monterroso MD [STAFF PHYSICIAN] - 2 Weeks Rehab [facility],Cardiac [NON-STAFF] - 4 Weeks (You will be called in 4-6 weeks for evaluation for cardiac rehab) Jose R Mar MD [Primary Care Provider] - 2 Weeks Basilio Jiménez MD [STAFF PHYSICIAN] - 11/06/20 11:15 am Bob Mclaughlin NPC [Nurse Practitioner] - 10/17/20 11:00 am Bro Camacho DO [Doctor of Osteopathic Medicine] - 2 Weeks [facility], [NON-STAFF] - 1-2 Days Ambulatory/Diagnostic Orders: Complete Blood Count w/diff [LAB.AMB] Time Frame: 10/13/20, Facility: [facility], Location: [facility] Comprehensive Metabolic Panel [LAB.AMB] Time Frame: 10/13/20, Facility: [facility], Location: [facility] Prothrombin Time INR [LAB.AMB] Time Frame: 10/13/20, Facility: [facility], Location: [facility] Activity/Diet/Wound Care/Special Instructions: DISCHARGE INSTRUCTIONS: 1. No driving for 4 weeks, or until physician gives their ok. 2. The patient should sleep in their own bed, no medical bed needed. 3. Stairs are not an issue. If the bedroom is upstairs, it is advised that the patient go up at night and down in the morning for the first week. Go slowly, using handrail and take 1 step at a time. 4. RAISSA hose are to be worn for 30 days or until physician discontinues. 5. Heart hugger is to be worn 100% of the time until physician discontinues.(except when showering) 6. No lifting, pushing, or pulling more than 10 pounds for 12 weeks. The physician will advise of any restriction changes. 7. The patient is expected to continue the prescribed walking program. 8. Continue pain control per as needed orders. 9. Continue with incentive spirometry and splinting/heart hugger until otherwise directed by the physician. 10. Must shower daily using liquid antibacterial soap and a separate white washcloth for each individual incision. 11. Routine sternal incision care. No powders, lotions, ointments on incisions. No dressings are necessary on incisions unless they are draining. Dermabond tape is to remain on sternal incision until surgeon follow-up. 12. Please call surgeon/ACADEMIC VICE PRESIDENT for temp greater than 101 F or purulent drainage from incisions. 13. All prescriptions given by surgeon for 30 days. Refills need to be filled through roller printing supervisor/primary care physician. 14. A Red armband has been placed on the patient. It should be worn for 30 days post surgery and will be removed by the cardiac surgeons. If an ER visit is necessary, please make sure the number on the Red armband is called. 15. You have been referred to and are expected to begin Cardiac Rehab in approximately 4-6 weeks. 16. Check PT and INR every Mondays and for Coumadin dosing. Please fax results to [phone] Jiménez. Goal INR for the first 3 months is 2-3, after the 3 months goal rate is 1.5-2. No Coumadin today 10/11/2020 and no Coumadin on 10/12/2020. HOME HEALTH SERVICES TO PROVIDE: RN SKILLED HOME CARE SERVICES FOR POST-OP SURGICAL PATIENTS WITH THE FOLLOWING: Coronary Artery Bypass Surgery (CABG), Mitral Valve Replacement/Repair ( MVR), Aortic Valve Replacement/Repair (AVR) RN TO CONTINUE EDUCATION FROM ``ROAD TO A HEALTH HEART PATIENT EDUCATION MANUAL (GIVEN TO PATIENT IN THE HOSPITAL) MEDICATION RECONCILIATION WITH EDUCATION NEEDED ON FIRST HOME VISIT EMPHASIZE IMPORTANCE OF WEARING BREAST SUPPORT/HEART HUGGER ENCOURAGE USE OF INCENTIVE SPIROMETER 10 X EVERY HOUR WHILE AWAKE ENCOURAGE UTILIZATION OF LOWER EXTREMITY COMPRESSION STOCKINGS/RAISSA HOSE and ELEVATE LEGS ABOVE LEVEL OF HEART WHILE AT REST. ENCOURAGE AMBULATION 3-5x/day INCREASING TOLERATES, WHILE AVOIDING EXTREMES IN TEMPERATURE FREQUENCY: RN TO OPEN THE PATIENT WITHIN 24 HOURS OF DISCHARGE FROM THE HOSPITAL WITH TELEHEALTH INSTALLED AT [facility], RN TO VISIT 2-3 X A WEEK FOR 4 WEEKS ESTABLISHED BY PATIENT NEEDS. LABORATORY: CBC, CMP TO BE DRAWN ON THE THIRD DAY HOME, (RAN STAT) FAX RESULTS TO [phone]. Check PT and INRs every Mondays and for Coumadin dosing. TELEHEALTH PARAMETERS: WEIGHT: NOTIFY MD OF WEIGHT GAIN OF 2 LBS IN 24 HOURS OR 5 LBS IN ONE WEEK HR: NOTIFY MD OF HR <55 BPM OR HR>100 BPM BP: NOTIFY MD IF BP <90/55 OR BP>140/100 O2 SAT: NOTIFY MD IF PO2<93% ON ROOM AIR SEND TELEHEALTH REPORT TO REVIEW ENGINEER AND CARDIOVASCULAR SURGEON THE FIRST WEEK OF CARE AND THEN BI-WEEKLY. PLEASE ADDITIONALLY COMMUNICATE ANY ABNORMALS AND NEW FINDINGS TO THE SURGEONS OFFICE. For any questions or concerns please call molding manager Tiffany @ or Tien @ Discharge Disposition: HOME WITH HOME HEALTH SERVICES
[2020-10-11 15:19] VITALS: BP 106/55; PULSE 87; TEMP 98.2
[2020-10-11] MEDS ORDERED: WARFARIN 0.5 MG TAB PO ONE (18:00)
--- NOTE | 2020-10-11 20:47 | P.PN ---
Subjective This is a pleasant 45 years old male with past medical history of CVA/TIA, asthma. He was recently diagnosed with severe aortic stenosis and congenital unicuspid valve with cardiomyopathy and low ejection fraction about 35-40%. He underwent cardiac cath which was negative for significant coronary artery disease. was admitted under cardiothoracic surgery team and underwent aortic valve replacement, postoperatively patient was seen in the ICU he was still intubated and undergoing sedation holiday, he is showing positive mental signs with expected extubation today Vitas looks stable. Labs including CBC, BMP and liver enzymes are unremarkable except for mild anemia He is currently on aspirin 325 mg, Plavix, Lipitor 10/07/2020 Patient is a status post extubation yesterday, today he was sitting in the chair fully awake and oriented with minimal pain at the surgical site which is expected [place] Catheter was still in place with the expectation to be removed today. Chest tube is in place Patient with no dyspnea, no abdominal pain. Tolerates diet. He does not have bowel movement or passing gas. He is hemodynamically stable. He's on aspirin, Plavix, metoprolol. Also patient received antibiotics with cefazolin 10/08/20 The patient sitting in chair feels even better than yesterday with no chest pain or dyspnea or any other complaint. Blood pressure is low normal. He is slightly tachypneic. Afebrile. CBC and BMP are unremarkable except for mild low sodium at 133. Glucose controlled. Patient denies history of diabetes Chest ultrasound showing 7.7 by pleural effusion Remains on aspirin, Plavix, metoprolol, Lipitor, amiodarone, subcu heparin. On warfarin was started per primary team 10/09/2020 Patient sitting on up and care with no specific complaints, he feels better every day. Denies chest pain or dyspnea. He is hemodynamically stable Labs in the form of CBC and BMP lipid stable as well. Chest x-ray from today, patchy perihilar and basilar infiltrates presents with no significant change. Left basilar chest tube has been removed without sizable pneumothorax He is on aspirin, metoprolol, Lipitor, subcu heparin. On warfarin was started as well 10/10/2020 Patient remains in chair with no symptoms. No chest pain or dyspnea. Vitas looks stable. His blood pressure is 117/66, respiratory rate 16, heart rate is 82, his saturating 96% on room air. CBC is a stable with hemoglobin 8.7. Sodium was 135, creatinine 0.8. She was controlled. Chest x-rays from today showing straight capacity bilateral lung bases. Correlate for atelectasis. Pneumonia is not excluded. Follow-up is recommended per Radiologist Management of anticoagulation per surgery primary team. His Coumadin today increased from 1.2 up to 3.2. Recommend holding Coumadin today and monitor for signs of bleeding. 10/11/2020 Patient feels much better today is with no chest pain or dyspnea. He is hemodynamically stable Hemoglobin is improved and stable at 8.5. INR is supratherapeutic at 3.7 today. BMP is unremarkable. Glucose is controlled Chest x-ray reviewed showing cardiomegaly with small to tiny bilateral pleural effusion and patchy bibasilar atelectasis. No significant change from one day earlier. Patient is on room air with saturation 95% He is on aspirin, statin, metoprolol. Management of Coumadin as per cardiothoracic surgery primary team Patient is been a stable over the last 3 days and each day he feels better. Patient is stable medically today Objective - Vital Signs Vital signs: Vital Signs Temp 98.2 F 10/11/20 12:00 Pulse 76 10/11/20 12:49 Resp 16 10/11/20 14:00 BP 106/55 10/11/20 12:00 Pulse Ox 95 10/11/20 12:00 Intake & Output 10/11/20 10/11/20 10/12/20 06:59 18:59 06:59 Intake Total 975 Output Total 400 Balance -400 975 Weight 78.8 kg Intake: Oral 975 Output: Urine 400 Other: Voiding Method Toilet Toilet # Voids 1 ABP, PAP, CO, CI - Last Documented Arterial Blood Pressure 85/48 Pulmonary Artery Pressure 34/11 Cardiac Output 7.6 Cardiac Index 4.2 - Exam GENERAL: The patient is alert and oriented x3, not in any acute distress. Well developed, well nourished. HEENT: Pupils are round and equally reacting to light. EOMI. No scleral icterus. No conjunctival pallor. Normocephalic, atraumatic. No pharyngeal erythema. No thyromegaly. CARDIOVASCULAR: S1 and S2 present. No murmurs, rubs, or gallops. PULMONARY: Chest is clear to auscultation, no wheezing or crackles. ABDOMEN: Soft, nontender, nondistended, normoactive bowel sounds. No palpable organomegaly. MUSCULOSKELETAL: No joint swelling or deformity. EXTREMITIES: No cyanosis, clubbing, or pedal edema. NEUROLOGICAL: Gross neurological examination did not reveal any focal deficits. SKIN: No rashes. no petechiae. - Labs CBC & Chem 7: 10/11/20 07:43 10/11/20 07:43 Labs: Abnormal Lab Results - Last 24 Hours (Table) 10/11/20 10/11/20 10/11/20 Range/Units 05:55 07:43 07:43 RBC 2.82 L (4.30-5.90) m/uL Hgb 8.5 L (13.0-17.5) gm/dL Hct 25.9 L (39.0-53.0) % PT 35.2 H (9.0-12.0) sec INR 3.7 H (<1.2) Glucose (74-99) mg/dL POC Glucose (mg/dL) 106 H (75-99) mg/dL 10/11/20 10/11/20 Range/Units 07:43 11:43 RBC (4.30-5.90) m/uL Hgb (13.0-17.5) gm/dL Hct (39.0-53.0) % PT (9.0-12.0) sec INR (<1.2) Glucose 100 H (74-99) mg/dL POC Glucose (mg/dL) 107 H (75-99) mg/dL Assessment and Plan Assessment: Severe aortic stenosis with unicuspid aortic valve status post aortic valve replacement Cardiomyopathy with ejection fraction of 35-40% Coagulopathy secondary to Coumadin Mild anemia History of asthma, not an active issue History of CVA/TIA Plan: This is a pleasant 45 years old male who presents with severe aortic stenosis status post aortic valve replacement. The primary cardiothoracic surgery team on the case, as well as pulmonary/critical care team. Continue with aspirin and Plavix. Postoperative management. Pain control. Monitor glucose. Continue with metoprolol. Hold Coumadin and monitor INR Labs and medication were reviewed.. Continue same treatment. Continue with symptomatic treatment. Resume home medication. Monitor lytes and vitals. DVT and GI prophylaxis. Further recommendationsas per clinical course of the patient DVT prophylaxis: Subcutaneous heparin, and warfarin which is on hold for high INR. Management of Coumadin per primary surgery team GI Prophylaxis: Ppi
== END 2020-10-11 17:40 | disposition home health service (06) | DRG 220 ==
LOC: 2ORMAIN 05:31 → 2SICU 12:11 → 3SCARD 10-09 16:35
PROVIDERS: ADMIT Thoracic Surgery (Cardiothoracic Vascular Surgery); ATTEND Thoracic Surgery (Cardiothoracic Vascular Surgery)
PROC: 02L70CK Occlusion of Left Atrial Appendage with Extraluminal Device, Open Approach (ICD-10-PCS; 2020-10-06)
PROC: 5A1221Z Performance of Cardiac Output, Continuous (ICD-10-PCS; 2020-10-06)
PROC: 02RF0JZ Replacement of Aortic Valve with Synthetic Substitute, Open Approach (ICD-10-PCS; principal; 2020-10-06 08:00)
PROC: 0W993ZZ Drainage of Right Pleural Cavity, Percutaneous Approach (ICD-10-PCS; 2020-10-08)
DX: Q23.0 Congenital stenosis of aortic valve (principal); J90 Pleural effusion, not elsewhere classified; I42.9 Cardiomyopathy, unspecified; D62 Acute posthemorrhagic anemia; J98.11 Atelectasis; Z68.30 Body mass index [BMI] 30.0-30.9, adult; J45.20 Mild intermittent asthma, uncomplicated; E78.5 Hyperlipidemia, unspecified; R79.1 Abnormal coagulation profile; T45.515A Adverse effect of anticoagulants, initial encounter; E66.9 Obesity, unspecified; Z71.3 Dietary counseling and surveillance; Z79.82 Long term (current) use of aspirin; Z79.51 Long term (current) use of inhaled steroids; Z79.899 Other long term (current) drug therapy; Z86.73 Personal history of transient ischemic attack (TIA), and cerebral infarction without residual deficits; Z80.3 Family history of malignant neoplasm of breast; Z84.1 Family history of disorders of kidney and ureter; Z83.49 Family history of other endocrine, nutritional and metabolic diseases
CPT/HCPCS: 36600; 71045; 71046; 76604; 80048; 80053; 82330; 82805; 83735; 84145; 85025; 85027; 85520; 85610; 85730; 86850; 86891; 86900; 86901; 86920; 88305; 88311; 94002; 94640

== ENCOUNTER → 2020-10-16 | Outpatient (CLI) | payer OTHER ==
[2020-10-16 13:04] LABS: Basophils # (A) 0.1 k/uL (0-0.2); Basophils % (A) 1 %; Eosinophils # (A) 0.3 k/uL (0-0.7); Eosinophils % (A) 4 %; Hypochromasia Moderate; Lymphocytes # (A) 0.7 k/uL (1.0-4.8); Lymphocytes % (A) 9 %; MCH 29.7 pg (25.0-35.0); MCHC 32.1 g/dL (31.0-37.0); MCV 92.8 fL (80.0-100.0); Mean Platelet Volume 7.7; Monocytes # (A) 0.6 k/uL (0-1.0); Monocytes % (A) 7 %; Neutrophils # (A) 6.3 k/uL (1.3-7.7); Neutrophils % (A) 78 %; Platelet Count 426 k/uL (150-450); RBC 3.02 m/uL (4.30-5.90); RDW 15.3 % (11.5-15.5)
[2020-10-16 13:05] LABS: ALT 22 U/L (4-49); AST 21 U/L (17-59); African American GFR (CKD) >90 (>60 ml/min/1.73 sqM); Albumin 3.9 g/dL (3.5-5.0); Alkaline Phosphatase 46 U/L (38-126); Anion Gap 9 mmol/L; Blood Urea Nitrogen 12 mg/dL (9-20); Calcium 9.1 mg/dL (8.4-10.2); Carbon Dioxide 29 mmol/L (22-30); Chloride 102 mmol/L (98-107); Globulin 2.3 g/dL; Glucose 107 mg/dL (74-99); INR 3.1 (<1.2); Non-African American GFR(CKD) >90 (>60 ml/min/1.73 sqM); Potassium 4.3 mmol/L (3.5-5.1); Prothrombin Time 29.9 sec (9.0-12.0); Sodium 140 mmol/L (137-145); Total Bilirubin 0.6 mg/dL (0.2-1.3); Total Protein 6.2 g/dL (6.3-8.2)
[2020-10-17 09:33] LABS: Albumin/Globulin Ratio 1.7 (1.60-3.17); BUN/Creat Ratio 16.67 Ratio (12.00-20.00)
== END | disposition home or self-care (01) ==
LOC: LABWHC1 10:59
PROVIDERS: ATTEND Nurse Practitioner Family
DX: Z95.2 Presence of prosthetic heart valve (principal)
CPT/HCPCS: 36415; 80053; 85025; 85610

== ENCOUNTER → 2024-01-26 | Outpatient (CLI) | payer OTHER ==
[2024-01-26 14:00] VITALS: BP 117/72; PULSE 64; RESP 16; TEMP 97.8
--- NOTE | 2024-01-26 14:13 | P.SLEEP ---
History of Present Illness DATE: 01/26/2024 CONSULTATION/NEW PATIENT EVALUATION HISTORY OF PRESENT ILLNESS/SLEEP-WAKE EVALUATION: 48-year-old gentleman had b een evaluated in the sleep center for possible obstructive sleep apnea hypopnea syndrome. SLEEP SCHEDULE: Usually sleep schedule from 5 PM to 10 PM and on weekend from 10 PM to 8 AM, patient works at night clerk auditor. FALLING ASLEEP: No problems with falling asleep. DURING SLEEP: Patient snores, has positive history of choking, wakes up from sleep once with nocturia. No history of hypnogogical hallucinations, sleep paralysis, or cataplexy. DURING THE DAY/WAKE STATE: After sleep patient may wake up tired, feels sleepiness. [place] Sleepiness Scale increased to 10. Patient takes 1 nap. PAST MEDICAL HISTORY: History of asthma. PAST SURGICAL HISTORY: Aortic valve replacement. MEDICATIONS: Please see below. SOCIAL HISTORY: Please see below. FAMILY HISTORY: Please see below. REVIEW OF SYSTEMS: Snoring, awakenings from sleep with choking, sleepiness. No fevers. No double vision. No recent chest pain. No shortness of breath. No abdominal pain. No bleeding episodes. No blood in urine. No seizure episodes. PHYSICAL EXAMINATION: GENERAL: A pleasant patient without any distress. VITAL SIGNS: Please see below, weight 194 pounds, BMI 32.2. HEENT: PERRLA, EOMI. Evaluation of oropharynx showed tongue protrudes midline, low position of soft palate Mallampati 4. NECK: Supple. No JVD. Thyroid is not palpable. 16.5 inches in circumference. LUNGS: Clear to percussion and to auscultation. Good air exchange. No wheezing or rhonchi. HEART: S1, S2 regular. No murmurs, gallops or rubs. ABDOMEN: Soft and nontender. Bowel sounds are present. No organomegaly appreciated. EXTREMITIES: No clubbing or cyanosis. PARTS COUNTERMAN: Awake, alert, and oriented x3. Cranial nerves 2 to 7 intact. There is no fasciculation or atrophy noted. No focal deficits observed. ASSESSMENT: 1. Snoring, awakenings from sleep with choking, extremely low position of soft palate Mallampati 4, sleepiness [place] Sleepiness Scale is 10. Obstructive sleep apnea hypopnea syndrome. 2. Mild obesity BMI 32.2. 3. Status post aortic valve replacement. 4. History of asthma in the past. PLAN: 1. Home sleep apnea test for evaluation of patient's breathing during sleep. 2. Following plan after reading sleep study. 3. Preferable position during sleep on the side. 4. No driving if patient feels any sleepiness. Patient is aware of civil and criminal liability for unsafe driving. 5. Sleep hygiene with regular sleep time for at least 7.5-8 hours. 6. Watching weight. Thank you very much for referring this patient for consultation. Sincerely, Armand Yates MD, PhD, FAASM. Diplomat of [place] [employer], Sleep Medicine Board by [place] [employer] [place] [employer] Professor Of [facility] [place] Past Medical History Past Medical History: Asthma, CVA/TIA Additional Past Medical History / Comment(s): TIA 6-7 yrs. ago-no residual effects, heart murmur, admission in Jul. for "fluid around heart" & difficulty breathing History of Any Multi-Drug Resistant Organisms: None Reported Past Surgical History: Heart Catheterization Additional Past Surgical History / Comment(s): recent [facility] Past Anesthesia/Blood Transfusion Reactions: No Reported Reaction Additional Past Anesthesia/Blood Transfusion Reaction / Comment(s): has never had general anesthesia or blood transfusion Past Psychological History: No Psychological Hx Reported Smoking Status: Never smoker Past Alcohol Use History: None Reported Past Drug Use History: None Reported - Past Family History Father Family Medical History: Hypertension Additional Family Medical History / Comment(s): arthritis (type?) Mother Family Medical History: Cancer, Hypertension Additional Family Medical History / Comment(s): arthriris (unknown type) Medications and Allergies Home Medications Medication Instructions Recorded Confirmed Type Ascorbic Acid [Vitamin C] 1,000 mg PO DAILY 08/28/20 01/26/24 History Aspirin 81 mg PO DAILY 08/28/20 01/26/24 History Budesonide/Formoterol Fumarate 2 puff INHALATION BID 08/28/20 10/06/20 History [Symbicort 160-4.5 Mcg Inhaler] Cholecalciferol [Vitamin D3 (25 1,000 unit PO BID 08/28/20 01/26/24 History Mcg = 1000 Iu)] Montelukast Sodium [Singulair] 10 mg PO HS 08/28/20 10/06/20 History [place]-3 Fatty Acids/Fish Oil [Fish 1 each PO DAILY 08/28/20 10/06/20 History Oil 1,000 mg Softgel] Rosuvastatin Calcium [Crestor] 10 mg PO DAILY 08/28/20 10/06/20 History Zinc 50 mg PO DAILY 08/28/20 01/26/24 History Albuterol Inhaler [Ventolin Hfa 2 puff INHALATION RT-QID PRN 10/01/20 10/06/20 History Inhaler] Acetaminophen Tab [Tylenol] 1,000 mg PO Q6HR PRN tab 10/11/20 Rx Ferrous Sulfate [Iron (65 MG 325 mg PO W/LUNCH #14 tab 10/11/20 01/26/24 Rx Elemental)] Metoprolol Tartrate [Lopressor] 25 mg PO BID #60 tab 10/11/20 01/26/24 Rx Pantoprazole [Protonix] 40 mg PO AC-BRKFST #30 tablet. 10/11/20 Rx Warfarin [Coumadin] 2.5 mg PO DAILY #60 tab 10/28/20 01/26/24 Rx Warfarin [Coumadin] 5 mg PO DAILY #30 tab 10/30/20 01/26/24 Rx Warfarin [Coumadin] 2.5 mg PO DIRECTED 01/26/24 History Allergies Allergy/AdvReac Type Severity Reaction Status Date / Time No Known Allergies Allergy Verified 10/06/20 05:53 Physical Exam Vitals: Vital Signs Temp Pulse Resp BP Pulse Ox 01/26/24 13:59 97.8 F 64 16 117/72 96 Sleep Note - Sleep Data ESS Total: 10 - Sleep Note Sleep Note: Temperature: 97.8 F Pulse Rate: 64 Respiratory Rate: 16 Blood Pressure: 117/72 SpO2: 96 Height: Weight: BMI: Neck Circumference: 16.5
== END ==
LOC: 3 N SLEEP 13:14
PROVIDERS: ATTEND Internal Medicine
DX: G47.33 Obstructive sleep apnea (adult) (pediatric) (principal); Z82.5 Family history of asthma and other chronic lower respiratory diseases; E66.9 Obesity, unspecified; Z68.32 Body mass index [BMI] 32.0-32.9, adult; Z95.2 Presence of prosthetic heart valve
CPT/HCPCS: 99202

== ENCOUNTER → 2024-02-01 | Outpatient (CLI) | payer OTHER ==
--- NOTE | 2024-02-02 17:44 | P.PCN ---
Description of Procedure: CLINICAL: A home sleep apnea test has been done for confirmation of possible obstructive sleep apnea-hypopnea syndrome. DESCRIPTION OF PROCEDURE: RESULTS: Recording time was 7 hours 20 minutes. Evaluation time was 6 hours 53 minutes. Evaluation time is sufficient for making conclusion about results of the test. Raw data of sleep recording has been reviewed and is adequate. Respiratory channel showed 342 apneas and 107 hypopneas. Apnea-hypopnea index was 65.1 per hour. Pulse rate in the range between minimum 41, maximum 85, average 52 by computer calculation. Lowest desaturation was 75%. IMPRESSION: 1. Severe Obstructive Sleep Apnea Hypopnea Syndrome. Please see other impressions from consultation. PLAN: 1. The patient should have PAP titration for correction of respiratory abnormallities during sleep. 2. Sleep hygiene with regular time in bed for at least 8 hours. 3. Watching and losing weight. 4. No driving if feeling any sleepiness. Thank you very much for allowing me to participate in the management of your patient. Sincerely, Armand Yates MD, PhD, FAASM Diplomat of [employer] Sleep Medicine Board of [employer] Software Sales Representative of [facility] [place]
== END ==
LOC: 3 N SLEEP 10:25
PROVIDERS: ATTEND Internal Medicine
DX: G47.33 Obstructive sleep apnea (adult) (pediatric) (principal)

== ENCOUNTER 2024-03-08 19:38 | Outpatient (CLI) | payer OTHER ==
--- NOTE | 2024-03-12 11:12 | P.PCN ---
Description of Procedure: CLINICAL: Titration with positive air pressure has been done for correction of respiratory abnormalities during sleep. DESCRIPTION OF PROCEDURE: The standard montage for clinical polysomnography included the electroencephalogram, the electrocardiogram, the mentalis surface electromyography and Lead II cardiography. The respiratory battery consisted of measurements of nasal /buccal air flow, pressure transducer measurements from the nose, thoracic and /or abdominal effort and intercostal surface electromyography. Video monitoring has been done to check for any parasomnia events. Nocturnal oxyhemoglobin saturations were obtained by finger oximetry. Step-lerma titration with positive airway pressure was utilized to control respiratory events. Raw data of sleep recording has been reviewed and is adequate. RESULTS: Sleep efficiency was in high range 96.8%. Latency to sleep onset was in short range 6.0 minutes.]. Sleep architecture showed stage N1 was normal 6.5%, Delta sleep was absent 0%, REM sleep was normal and high range 28.9%. Heart rate was minimum 45 BPM, maximum 51 BPM, average 48 BPM. EMG showed 0 periodic limb movements per hour with 0 micriarousals per hour. PAP titration have been done with CPAP up to the pressure 10 cm H2O. The best results were at the pressure 10 cm H2O. Apnea hypopnea index reduced to 0. IMPRESSION: 1. Obstructive sleep apnea hypopnea syndrome on controle with PAP treatment. 2. No significant periodic limb movements have been documented. Please see other impressions from consultation. PLAN: 1. The patient will have treatment with positive air pressure equipment with the level of pressure AutoPAP 5-11 cm H2O and should use it every night for the whole night. 2. Watching and losing weight. 3. Sleep hygiene with regular time in bed for at least 8 hours. 4. No driving if feeling any sleepiness. 5. I will see the patient for follow up visit to explain the results of the test, recommendations, check compliance with treatment and make any necessary adjustment related to mask fitting, pressure and humidification. Thank you very much for allowing me to participate in the management of your patient. Sincerely, Armand Yates MD, PhD, FAASM Diplomat of [employer] [employer] Sleep Medicine Board of [place] [employer] Worker Fitter of [facility] cc: Damian Germain MD
== END 2024-03-09 05:40 | disposition home or self-care (01) ==
LOC: 3 N SLEEP 19:38
PROVIDERS: ATTEND Internal Medicine
DX: G47.33 Obstructive sleep apnea (adult) (pediatric) (principal)
CPT/HCPCS: 95811

== ENCOUNTER → 2025-03-04 | Outpatient (CLI) | payer OTHER ==
[2025-03-04 15:37] LABS: HCT 51.3 % (39.6-50.0); HGB 16.5 g/dL (13.0-17.0); MCH 29.8 pg (27.0-32.0); MCHC 32.2 g/dL (32.0-37.0); MCV 92.8 FL (80.0-97.0); NRBC Per 100 WBC 0 X 10*3/uL (0.00-0.01); Platelet Count 168 X 10*3/uL (140-440); RBC 5.53 X 10*6/uL (4.40-5.60); RDW 14.6 % (11.5-14.5); WBC 5.92 X 10*3/uL (4.50-10.00)
[2025-03-04 15:39] LABS: NT-Pro-B-Type Natriuretic Pept 82 pg/mL (0-125)
[2025-03-04 15:59] LABS: ALT 42 U/L (10-49); AST 31 U/L (14-35); Albumin 4.2 g/dL (3.8-4.9); Albumin/Globulin Ratio 1.68 Ratio (1.60-3.17); Alkaline Phosphatase 52 U/L (41-126); Anion Gap 12.40 mmol/L (4.00-12.00); BUN/Creat Ratio 13.50 Ratio (12.00-20.00); Blood Urea Nitrogen 13.5 mg/dL (9.0-27.0); Calcium 9.1 mg/dL (8.7-10.3); Carbon Dioxide 21.6 mmol/L (21.6-31.8); Chloride 104 mmol/L (96-109); Cholesterol 368.00 mg/dL (0.00-200.00); Globulin 2.5 g/dL (1.6-3.3); Glucose 106 mg/dL (70-110); HDL Cholesterol 27.80 mg/dL (40.00-60.00); Potassium 4.3 mmol/L (3.5-5.5); Sodium 138 mmol/L (135-145); Total Protein 6.7 g/dL (6.2-8.2); Triglycerides 654.00 mg/dL (0.00-149.00); VLDL Calculation 130.80 mg/dL (5.00-40.00)
[2025-03-04 16:22] LABS: LDL Cholesterol,Direct Reflex 109.00 mg/dL (0.00-129.00)
== END | disposition home or self-care (01) ==
LOC: LABWHC1 10:11
PROVIDERS: ATTEND Student in an Organized Health Care Education/Training Program
DX: D72.9 Disorder of white blood cells, unspecified (principal); I50.9 Heart failure, unspecified; E11.9 Type 2 diabetes mellitus without complications; E78.5 Hyperlipidemia, unspecified; E03.9 Hypothyroidism, unspecified; R79.89 Other specified abnormal findings of blood chemistry
CPT/HCPCS: 36415; 80053; 80061; 83036; 83721; 83880; 84443; 85027